=== PATIENT | male | born 1950 ===

== ENCOUNTER 2017-05-12 15:06 | Emergency (ER) | payer OTHER ==
[2017-05-12 15:24] VITALS: RESP 18; TEMP 98.9; O2SAT 99
[2017-05-12 16:30] LABS: BASO # 0.1 K/uL (0.0-0.2); BASO % 1.1 % (0.0-2.0); EOS # 0.2 K/uL (0.0-0.7); EOS % 2.3 % (0.0-4.0); HEMATOCRIT 36.7 % (35.0-51.0); LYMPH # 1.4 K/uL (1.0-4.3); LYMPH % 14.8 % (20.0-40.0); MEAN CORPUSCULAR HEMOGLOBIN 30.9 pg (27.0-31.0); MEAN CORPUSCULAR HGB CONC 33.9 g/dL (33.0-37.0); MEAN PLATELET VOLUME 8.3 fl (7.2-11.7); MONO % 10.4 % (0.0-10.0); NEUT % 71.4 % (50.0-75.0); NRBC % 0.1 % (0.0-0.0); RED CELL DISTRIBUTION WIDTH 13.9 % (11.5-14.5); WHITE BLOOD COUNT 9.8 K/uL (4.8-10.8)
[2017-05-12 16:34] LABS: PARTIAL THROMBOPLASTIN TIME 29.2 Seconds (25.6-37.1)
[2017-05-12 16:36] LABS: ALB/GLOB RATIO 1.2 (1.0-2.1); BILIRUBIN,TOTAL 0.5 mg/dl (0.2-1.3); CALCIUM 9.9 mg/dL (8.4-10.2); POTASSIUM 4.4 MMOL/L (3.6-5.0); TOTAL PROTEIN 7.5 G/DL (6.3-8.2)
[2017-05-12] MEDS ORDERED: Lidocaine 2% Inj (20ml) ONE (17:27)
[2017-05-12] MEDS ORDERED: Povidone Iodine Topical 10% Sol ONE (17:28)
--- NOTE | 2017-05-12 18:13 | ED PDOC ---
Lower Extremity Pain/Injury Time Seen by Provider: 05/12/17 15:31 Chief Complaint (Nursing): Lower Extremity Problem/Injury Chief Complaint (Provider): leg pain History Per: Patient History/Exam Limitations: no limitations Additional Complaint(s): 66yo M in ED for eval of right leg pain starting from lower back radiating to groin area and knee-pt states pain is predominately around knee area with swelling. PT took ocxycotin and naproxen but not effective. no SOB, CP, dizziness palpitations, vision changes., swelling to LE or skin changes( abnormal for pre-existing skin changes). PMHx: DM, HTN. hx of DVT 2-3 years ago. - Risk Factors DVT Risk Factors: Pos: None Neg: History Of PE Past Medical History Reviewed: Historical Data, Nursing Documentation, Vital Signs Vital Signs: Last Vital Signs Temp 98.9 F 05/12/17 15:20 Pulse 95 H 05/12/17 15:20 Resp 18 05/12/17 15:20 BP 192/110 H 05/12/17 16:38 Pulse Ox 99 05/12/17 15:20 - Medical History PMH: Diabetes, HTN, Hypercholesterolemia, Hypothyroidism, Chronic Kidney Disease - Family History Family History: States: Unknown Family Hx - Immunization History Hx Tetanus Toxoid Vaccination: No Hx Influenza Vaccination: No Hx Pneumococcal Vaccination: No - Home Medications Home Medications: Ambulatory Orders Medication Instructions Recorded Omeprazole 20 mg PO ONCE 03/21/16 Alogliptin Candelario/Pioglitazone 1 each PO DAILY 06/04/16 [Alogliptin-Pioglit 12.5-15 mg] Carvedilol [Coreg] 12.5 mg PO BID #60 tab 06/04/16 Lantus 100 unit SC BID 06/04/16 Losartan/Hydrochlorothiazide 1 each PO DAILY 06/22/16 [Losartan-Hctz 100-25 mg Tab] amLODIPine [Norvasc] 2.5 mg PO BID #20 tab 06/22/16 Cyclobenzaprine [Cyclobenzaprine 10 mg PO BID #14 tab 05/12/17 HCl] - Allergies Allergies/Adverse Reactions: Allergies Allergy/AdvReac Type Severity Reaction Status Date / Time No Known Allergies Allergy Verified 06/22/16 10:35 Wells Criteria for PE - Wells Criteria for Pulmonary Embolism Clinical Signs and Symptoms of DVT: No P.E is #1 Diagnosis, or Equally Likely: No Heart Rate >100: No Immobilization at least 3 days;Surgery previous 4 weeks: No Previous, objectively diagnosed PE or DVT: Yes Hemoptysis: No Malignancy w/treatment within 6 months, or palliative: No Total Score: 1.5 Review of Systems ROS Statement: Except As Marked, All Systems Reviewed And Found Negative Musculoskeletal: Positive for: Leg Pain Physical Exam - Reviewed Nursing Documentation Reviewed: Yes Vital Signs Reviewed: Yes - Physical Exam Appears: Positive for: Well, Non-toxic, No Acute Distress Skin: Positive for: Normal Color, Warm, DRY Cardiovascular/Chest: Positive for: Regular Rate, Rhythm Respiratory: Positive for: CNT, Normal Breath Sounds Gastrointestinal/Abdominal: Positive for: Normal Exam, Bowel Sounds, Soft. Negative for: Tenderness Back: Positive for: Normal Inspection, Vertebral Tenderness, Muscle Spasm. Negative for: L CVA Tenderness, R CVA Tenderness Extremity: Positive for: Other (skin changes noted b/l ). Negative for: Calf Tenderness, Deformity, Swelling Neurologic/Psych: Positive for: Alert, Oriented - Laboratory Results Result Diagrams: 05/12/17 16:15 05/12/17 16:15 - ECG O2 Sat by Pulse Oximetry: 99 - Progress ED Course And Treament: Orders Category Date Time Status COMP METABOLIC PANEL Stat Chem 05/12/17 16:15 Completed CBC (WITH DIFFERENTIAL) Stat STACIE 05/12/17 16:15 Completed PARTIAL THROMBOPLASTIN TIME [COAG] Stat STACIE 05/12/17 16:15 Completed PROTHROMBIN TIME [COAG] Stat STACIE 05/12/17 16:15 Completed Cyclobenzaprine [Flexeril] Med 05/12/17 18:08 Stat 10 mg PO STAT STA Ketorolac [Toradol] Med 05/12/17 18:07 Stat 30 mg IM STAT STA Lidocaine 2% 20ML VIAL Med 05/12/17 17:27 Discontinued 20 ml .ROUTE .STK-MED ONE Povidone Iodine 10% [Betadine 10% Topical Soln] Med 05/12/17 17:28 Discontinued 240 ml .ROUTE .STK-MED ONE DUPLEX LOWER EXTRM VEIN BILAT [US] Stat US 05/12/17 15:51 Taken PT will get US r/o DVT- which negative for DVT-will get torodol and flexril for pain PT with elevated BP Re-evaluation Time: 19:10 Condition: Improved (pain improved with use of torodol and flexril. however BP is elevated-states [facility] today for BP. no dizziness, no GARRISON no vision changes no chest pain. pt given clondine ) Medical Decision Making Medical Decision Making: PT VS improved. pt stable for d/c home with f.u with pmd d/c on flexril to add to naproxen. advised to NOT use to oxycotin. pt understands and agrees with plan. Disposition - Clinical Impression Clinical Impression: Sciatica - Patient ED Disposition Is Patient to be Admitted: No Counseled Patient/Family Regarding: Studies Performed, Diagnosis, Need For Followup, Rx Given - Disposition Disposition: Routine/Home Disposition Time: 19:31 Condition: IMPROVED Additional Instructions: Do not take the flexril with ocycotin. Prescriptions: Cyclobenzaprine [Cyclobenzaprine HCl] 10 mg PO BID #14 tab Instructions: Sciatica (ED) Forms: [employer] (Finnish)
--- NOTE | 2017-05-12 18:36 | US ---
PROCEDURE: Bilateral lower extremity venous duplex Doppler. HISTORY: b/l calf/groin pain COMPARISON: None available. TECHNIQUE: Bilateral common femoral, superficial femoral, popliteal and posterior tibial veins were evaluated. Flow was assessed with color Doppler, compressibility, assessment of phasic flow and augmentation response. FINDINGS: COMMON FEMORAL VEIN: Right CFV: Unremarkable. Left CFV: Unremarkable. SUPERFICIAL FEMORAL VEIN: Right SFV: Unremarkable. Left SFV: Unremarkable. POPLITEAL VEIN: Right Popliteal: Unremarkable. Left Popliteal: Unremarkable. POSTERIOR TIBIAL VEIN: Right PTV: Unremarkable. Left PTV: Unremarkable. OTHER FINDINGS: None. IMPRESSION: No evidence of deep venous thrombosis.
[2017-05-12] MEDS ORDERED: Sodium Chloride 0.9% 1,000 ML IV STA (18:37)
[2017-05-12 19:30] VITALS: PULSE 90
[2017-05-12 19:54] VITALS: BP 169/89
== END 2017-05-12 19:55 | disposition home or self-care (01) ==
LOC: H.ER 15:06
DX: M54.42 Lumbago with sciatica, left side (principal); E11.22 Type 2 diabetes mellitus with diabetic chronic kidney disease; E78.00 Pure hypercholesterolemia, unspecified; I12.9 Hypertensive chronic kidney disease with stage 1 through stage 4 chronic kidney disease, or unspecified chronic kidney disease; Z79.4 Long term (current) use of insulin; Z86.711 Personal history of pulmonary embolism
CPT/HCPCS: 80053; 85025; 85610; 85730; 93970; 96372; 99284; J1885

== ENCOUNTER 2017-05-19 05:59 | Emergency (ER) | payer OTHER ==
[2017-05-19 06:14] VITALS: BMI 34.4
[2017-05-19 06:18] VITALS: BP 184/85; PULSE 106; RESP 18; TEMP 98.7; O2SAT 100
[2017-05-19] MEDS ORDERED: Oxycodone/Acetaminophen 5/325 mg Tab PO ONE (06:40)
[2017-05-19] MEDS ORDERED: Oxycodone/Acetaminophen 5/325 mg Tab ONE (06:43)
--- NOTE | 2017-05-19 06:46 | ED PDOC ---
Lower Extremity Pain/Injury Time Seen by Provider: 05/19/17 06:03 Chief Complaint (Nursing): Lower Extremity Problem/Injury Chief Complaint (Provider): Right Leg Pain History Per: Patient History/Exam Limitations: no limitations Onset/Duration Of Symptoms: Days (x6) Current Symptoms Are (Timing): Still Present Additional Complaint(s): Maximo Crain is a 66 year old male with a history of hypertension, diabetes, high cholesterol, hypothyroidism, and chronic kidney disease that presents to the ED with a chief complaint of right knee pain localized to the medial aspect that he has been experiencing for the past five days. Patient was seen in the ED on 05/12/17 for bilateral knee pain, for which he received an ultrasound that showed no clot. He was given prescriptions for Oxycontin and Naproxen but with no improvement. Of Note: Patient has history of DVT that occurred 2-3 years ago. Past Medical History Reviewed: Historical Data, Nursing Documentation, Vital Signs Vital Signs: Last Vital Signs Temp 98.7 F 05/19/17 06:14 Pulse 106 H 05/19/17 06:14 Resp 18 05/19/17 06:14 BP 184/85 H 05/19/17 06:14 Pulse Ox 100 05/19/17 06:14 - Medical History PMH: Diabetes, HTN, Hypercholesterolemia, Hypothyroidism, Chronic Kidney Disease - Family History Family History: States: Unknown Family Hx - Social History Current smoker - smoking cessation education provided: No Alcohol: None Drugs: Denies - Immunization History Hx Tetanus Toxoid Vaccination: No Hx Influenza Vaccination: No Hx Pneumococcal Vaccination: No - Home Medications Home Medications: Ambulatory Orders Medication Instructions Recorded Omeprazole 20 mg PO ONCE 03/21/16 Alogliptin Candelario/Pioglitazone 1 each PO DAILY 06/04/16 [Alogliptin-Pioglit 12.5-15 mg] Carvedilol [Coreg] 12.5 mg PO BID #60 tab 06/04/16 Lantus 100 unit SC BID 06/04/16 Losartan/Hydrochlorothiazide 1 each PO DAILY 06/22/16 [Losartan-Hctz 100-25 mg Tab] amLODIPine [Norvasc] 2.5 mg PO BID #20 tab 06/22/16 Cyclobenzaprine [Cyclobenzaprine 10 mg PO BID #14 tab 05/12/17 HCl] Celecoxib [celeBREX] 200 mg PO DAILY PRN #20 cap 05/19/17 - Allergies Allergies/Adverse Reactions: Allergies Allergy/AdvReac Type Severity Reaction Status Date / Time No Known Allergies Allergy Verified 05/19/17 06:14 Review of Systems Musculoskeletal: Positive for: Leg Pain (right knee pain) Physical Exam - Reviewed Nursing Documentation Reviewed: Yes Vital Signs Reviewed: Yes - Physical Exam Appears: Positive for: Non-toxic, No Acute Distress Head Exam: Positive for: ATRAUMATIC, NORMOCEPHALIC Skin: Positive for: Normal Color, Warm, DRY Eye Exam: Positive for: EOMI, Normal appearance, PERRL Cardiovascular/Chest: Positive for: Regular Rate, Rhythm. Negative for: Murmur Respiratory: Positive for: Normal Breath Sounds. Negative for: Wheezing Gastrointestinal/Abdominal: Positive for: Normal Exam, Soft. Negative for: Tenderness Extremity: Negative for: Tenderness, Deformity, Swelling Neurologic/Psych: Positive for: Alert, Oriented. Negative for: Motor/Sensory Deficits - ECG O2 Sat by Pulse Oximetry: 100 (RA) Pulse Ox Interpretation: Normal Medical Decision Making Medical Decision Making: Impression: Right Knee Pain Plan: * X-Ray Right Knee, Rule out fracture * US Duplex Lower Extremity Right Vein, Rule out DVT * Percocet 5/325 mg PO * Reevaluation Scribe Attestation: Documented by Aliza Horner, acting as a scribe for Jesus Mendoza MD. Provider Scribe Attestation: All medical record entries made by the Scribe were at my direction and personally dictated by me. I have reviewed the chart and agree that the record accurately reflects my personal performance of the history, physical exam, medical decision making, and the department course for this patient. I have also personally directed, reviewed, and agree with the discharge instructions and disposition. Disposition - Clinical Impression Clinical Impression: Knee pain, chronic - Patient ED Disposition Is Patient to be Admitted: Transfer of Care - Disposition Referrals: Shaik Oliveira MD [Family Provider] - Mackenzie Oliveira MD [Non-Staff] - Disposition: Transfer of Care Disposition Time: 07:30 Condition: IMPROVED Prescriptions: Celecoxib [celeBREX] 200 mg PO DAILY PRN #20 cap PRN Reason: Pain Instructions: Knee Pain (ED) Forms: [employer] (Indonesian) Patient Signed Over To: Sunita Davila
--- NOTE | 2017-05-19 08:29 | ED PDOC ---
- ECG O2 Sat by Pulse Oximetry: 100 (RA) Pulse Ox Interpretation: Normal Medical Decision Making Medical Decision Making: Time: 07:00 --Patient is signed out to me by Dr. Jesus Mendoza MD, pending X-Ray, ultrasound, and reevaluation Scribe Attestation: Documented by Marley Kirk, acting as a scribe for Sunita Davila MD Provider Scribe Attestation: All medical record entries made by the Scribe were at my direction and personally dictated by me. I have reviewed the chart and agree that the record accurately reflects my personal performance of the history, physical exam, medical decision making, and the department course for this patient. I have also personally directed, reviewed, and agree with the discharge instructions and disposition. 9.15a- feeling bettter. x-rays no fracture or dislocation. evidence of DJD. Doppler negative for DVT. Will discharge. Disposition Doctor Will See Patient In The: Office Counseled Patient/Family Regarding: Diagnosis, Need For Followup, Rx Given - Clinical Impression Clinical Impression: Knee pain, chronic - POA Present On Arrival: None - Disposition Referrals: Shaik Oliveira MD [Family Provider] - Mackenzie Oliveira MD [Non-Staff] - Disposition: Routine/Home Disposition Time: 09:15 Condition: IMPROVED Prescriptions: Celecoxib [celeBREX] 200 mg PO DAILY PRN #20 cap PRN Reason: Pain Instructions: Knee Pain (ED) Forms: [employer] (Ukrainian)
--- NOTE | 2017-05-19 09:46 | US ---
PROCEDURE: Right lower extremity venous duplex Doppler. HISTORY: Right lower leg pain COMPARISON: None available. TECHNIQUE: Common femoral, superficial femoral, popliteal and posterior tibial veins were evaluated. Flow was assessed with color Doppler, compressibility, assessment of phasic flow and augmentation response. FINDINGS: COMMON FEMORAL VEIN: Normal direction of flow, compressibility and augmentation response. SUPERFICIAL FEMORAL VEIN: Normal direction of flow, compressibility and augmentation response. POPLITEAL VEIN: Normal direction of flow, compressibility and augmentation response. POSTERIOR TIBIAL VEIN: Normal direction of flow, compressibility and augmentation response. OTHER FINDINGS: None. IMPRESSION: No evidence of deep venous thrombosis in the right lower extremity.
--- NOTE | 2017-05-19 11:09 | RAD ---
PROCEDURE: Right Knee Radiographs. HISTORY: knee pain COMPARISON: None. FINDINGS: BONES: Bone alignment and mineralization are normal. No fracture. JOINTS: There is moderate tricompartmental degenerative osteoarthrosis with mild reduced joint spaces, marginal osteophytes and chondrocalcinosis, worse in the medial compartment. JOINT EFFUSION: None. OTHER FINDINGS: There are extensive small presumable dermal calcifications in the upper leg and probable linear heterotopic ossification in the anterior soft tissues. IMPRESSION: Moderate tricompartmental degenerative osteoarthrosis, worse in the medial compartment. .
== END 2017-05-19 10:13 | disposition home or self-care (01) ==
LOC: H.ER 05:59
DX: M17.11 Unilateral primary osteoarthritis, right knee (principal); E11.22 Type 2 diabetes mellitus with diabetic chronic kidney disease; E78.00 Pure hypercholesterolemia, unspecified; I12.9 Hypertensive chronic kidney disease with stage 1 through stage 4 chronic kidney disease, or unspecified chronic kidney disease; Z79.4 Long term (current) use of insulin

== ENCOUNTER 2017-11-09 22:49 | Inpatient (IN) | payer MEDICAID, OTHER ==
[2017-11-09 22:49] VITALS: BMI 34.4
--- NOTE | 2017-11-10 00:12 | US ---
EXAM: US Duplex Bilateral Lower Extremity Veins CLINICAL HISTORY: 66 years old, male; Pain; Leg, lower; Bilateral; Additional info: Leg pains h/o dvt TECHNIQUE: Real-time duplex ultrasound scan of the bilateral lower extremity veins integrating B-mode two-dimensional vascular structure, Doppler spectral analysis, color flow Doppler imaging and compression. COMPARISON: No relevant prior studies available. FINDINGS: Right deep veins: No acute abnormality as visualized. No DVT in the right common femoral, femoral, proximal deep femoral, popliteal or posterior tibial veins. The veins demonstrate normal color flow, are normally compressible, with normal phasic flow and/or augmentation response. Left deep veins: No acute abnormality as visualized. No DVT in the left common femoral, femoral, proximal deep femoral, popliteal or posterior tibial veins veins. The veins demonstrate normal color flow, are normally compressible, with normal phasic flow and/or augmentation response. Soft tissues: No acute findings. IMPRESSION: No evidence of deep venous thrombosis in the visualized veins of the bilateral lower extremities.
--- NOTE | 2017-11-10 00:15 | ED PDOC ---
Lower Extremity Pain/Injury Time Seen by Provider: 11/09/17 23:04 Chief Complaint (Nursing): Lower Extremity Problem/Injury Chief Complaint (Provider): Lower Extremity Problem History Per: Patient History/Exam Limitations: no limitations Onset/Duration Of Symptoms: Days (11/10/17), Worse Since Current Symptoms Are (Timing): Still Present Additional Complaint(s): 66 year old male with a past medical history of diabetes and hypertension presents to the ED complaining of leg pain onset today. Patient has had this problem since 2 years due to herniated disk in back. Reports the pain has been worse for the past 2 days. Hes bed-bound and doesnt walk since March of last year due to progressive weakness in legs. Denies new trauma, back pain, new numbness or new weakness, or urinary problems. PMD: Shaik Oliveira Past Medical History Reviewed: Historical Data, Nursing Documentation, Vital Signs Vital Signs: Last Vital Signs Temp 99.1 F 11/09/17 22:50 Pulse 137 H 11/09/17 22:50 Resp 18 11/09/17 22:50 BP 142/77 11/09/17 22:50 Pulse Ox 97 11/09/17 22:50 - Medical History PMH: Arthritis (back pain, r knee pain), Diabetes, HTN, Hypercholesterolemia, Hypothyroidism, Chronic Kidney Disease - Family History Family History: States: Unknown Family Hx - Social History Current smoker - smoking cessation education provided: No Alcohol: None Drugs: Denies - Immunization History Hx Tetanus Toxoid Vaccination: No Hx Influenza Vaccination: Yes Hx Pneumococcal Vaccination: Yes - Home Medications Home Medications: Ambulatory Orders Medication Instructions Recorded Apixaban [Eliquis] 5 mg PO DAILY 11/10/17 Insulin Glargine, Recombina 20 unit SQ BID 11/10/17 [Lantus] Levothyroxine Sodium [Synthroid] 175 mcg PO DAILY 11/10/17 Omeprazole 20 mg PO DAILY 11/10/17 Rosuvastatin Calcium [Crestor] 10 mg PO HS 11/10/17 Sitagliptin Phos/Metformin HCl 1 each PO BID 11/10/17 [Janumet 50-1,000 mg Tablet] Torsemide [Demadex] 20 mg PO DAILY 11/10/17 Valsartan/Hydrochlorothiazide 1 tab PO DAILY 11/10/17 [Valsartan and Hydrochlorothiazide 25 mg-160 M] amLODIPine [Norvasc] 5 mg PO DAILY 11/10/17 - Allergies Allergies/Adverse Reactions: Allergies Allergy/AdvReac Type Severity Reaction Status Date / Time No Known Allergies Allergy Verified 06/06/17 21:01 Review of Systems ROS Statement: Except As Marked, All Systems Reviewed And Found Negative (As per HPI, otherwise negative) Constitutional: Negative for: Weakness, Other (trauma) Musculoskeletal: Positive for: Leg Pain Neurological: Negative for: Weakness Physical Exam - Reviewed Nursing Documentation Reviewed: Yes Vital Signs Reviewed: Yes - Physical Exam Appears: Positive for: Non-toxic, No Acute Distress Head Exam: Positive for: ATRAUMATIC, NORMAL INSPECTION, NORMOCEPHALIC Skin: Positive for: Normal Color, Warm, Dry ENT: Negative for: Pharyngeal Erythema, Tonsillar Exudate Neck: Positive for: Painless ROM, Supple Cardiovascular/Chest: Positive for: Regular Rate, Rhythm. Negative for: Murmur Respiratory: Positive for: Normal Breath Sounds. Negative for: Respiratory Distress Gastrointestinal/Abdominal: Positive for: Soft. Negative for: Tenderness, Mass , Distended, Guarding Back: Negative for: Vertebral Tenderness, Muscle Spasm Extremity: Positive for: Pedal Edema (bilateral and reported to be better than usual), Other (poor muscle bulk). Negative for: Tenderness (bilateral legs) Neurologic/Psych: Positive for: Alert, Oriented (x3), Motor/Sensory Deficits (4/ 5 strength) - Laboratory Results Result Diagrams: 11/13/17 05:30 11/13/17 05:30 - ECG O2 Sat by Pulse Oximetry: 97 (RA) Pulse Ox Interpretation: Normal Medical Decision Making Medical Decision Making: Time: 2309 Initial Impression: acute chronic leg pain Initial Plan: --Venous Blood Gas Shock Panel --CMP --Magnesium --Phosphorous --CBC w/ differential --Partial Thromboplastin Time [COAG] --Prothrombin Time [COAG] --Flexeril 10mg --Neurontin 300mg --Toradol 15mg --Tylenol 975mg --Duplex Lower Extrm Vein Bilat [US] --Reevaluation Time: 0000 Patient will be signed out to Dr. Bruno pending labs and reevaluation. Scribe Attestation: Documented by Gilberto Luke, acting as a scribe for Ирина Shea MD Provider Scribe Attestation: All medical record entries made by the Scribe were at my direction and personally dictated by me. I have reviewed the chart and agree that the record accurately reflects my personal performance of the history, physical exam, medical decision making, and the department course for this patient. I have also personally directed, reviewed, and agree with the discharge instructions and disposition. Disposition - Clinical Impression Clinical Impression: Acute on chronic renal failure, Hyperkalemia, Lactic acidosis - Disposition Disposition: Transfer of Care Disposition Time: 00:00 Condition: FAIR Patient Signed Over To: London Bruno Handoff Comments: Pending labs and reevaluation
--- NOTE | 2017-11-10 00:27 | ED PDOC ---
- Laboratory Results Result Diagrams: 11/10/17 00:35 11/10/17 00:35 - ECG O2 Sat by Pulse Oximetry: 97 (RA) Pulse Ox Interpretation: Normal Medical Decision Making Medical Decision Making: Time: Patient signed out to me by Dr. Shea pending labs and reevaluation. Time:10 EXAM:US Duplex Bilateral Lower Extremity Veins FINDINGS: Right deep veins: No acute abnormality as visualized. No DVT in the right common femoral, femoral, proximal deep femoral, popliteal or posterior tibial veins. The veins demonstrate normal color flow, are normally compressible, with normal phasic flow and/or augmentation response. Left deep veins: No acute abnormality as visualized. No DVT in the left common femoral, femoral, proximal deep femoral, popliteal or posterior tibial veins veins. The veins demonstrate normal color flow, are normally compressible, with normal phasic flow and/or augmentation response. Soft tissues: No acute findings. IMPRESSION: No evidence of deep venous thrombosis in the visualized veins of the bilateral lower extremities. 200 HR 98, legs appear with chronic discoloration, no swelling/erythema/crepitus noted, patient states both legs are hurting currently. EKG shows peaked T waves , patient has hyperkalemia and worsening renal faiulre. Will admit for IVF and inpatient management. Lactic acidosis as well, although no focus for infection/ gangrene/gas seen at this time Scribe Attestation: Documented by Gilberto Luke, acting as a scribe for London Bruno MD Provider Scribe Attestation: All medical record entries made by the Scribe were at my direction and personally dictated by me. I have reviewed the chart and agree that the record accurately reflects my personal performance of the history, physical exam, medical decision making, and the department course for this patient. I have also personally directed, reviewed, and agree with the discharge instructions and disposition. Disposition - Clinical Impression Clinical Impression: Acute on chronic renal failure, Hyperkalemia, Lactic acidosis - POA Present On Arrival: None - Disposition Disposition: Admitted as In-Patient Disposition Time: 02:13 Condition: FAIR
[2017-11-10 00:42] LABS: VENOUS BLOOD GAS BASE EXCESS 13.3 mmol/L (0.0-2.0); VENOUS BLOOD GAS PCO2 40 mmHg (40-60); VENOUS BLOOD GAS PO2 16 mm/Hg (30-55); VENOUS BLOOD PH 7.57 (7.32-7.43)
[2017-11-10] MEDS ORDERED: Sodium Chloride 0.9% 1,000 ML IV STA (00:48)
[2017-11-10 00:51] LABS: BASO # 0.1 K/uL (0.0-0.2); BASO % 0.8 % (0.0-2.0); EOS # 0.2 K/uL (0.0-0.7); EOS % 2.1 % (0.0-4.0); HEMOGLOBIN 11.9 g/dL (12.0-18.0); LYMPH # 1.7 K/uL (1.0-4.3); LYMPH % 15.5 % (20.0-40.0); MEAN CELL VOLUME 89.2 fl (80.0-94.0); MEAN CORPUSCULAR HEMOGLOBIN 29.3 pg (27.0-31.0); MEAN CORPUSCULAR HGB CONC 32.9 g/dL (33.0-37.0); MEAN PLATELET VOLUME 8.3 fl (7.2-11.7); MONO # 1.1 K/uL (0.0-0.8); MONO % 10.5 % (0.0-10.0); NEUT # 7.6 K/uL (1.8-7.0); NEUT % 71.1 % (50.0-75.0); NRBC % 0.1 % (0.0-0.0); RBC 4.05 Mil/uL (4.40-5.90); RED CELL DISTRIBUTION WIDTH 15.2 % (11.5-14.5); WHITE BLOOD COUNT 10.7 K/uL (4.8-10.8)
[2017-11-10 01:03] LABS: ALB/GLOB RATIO 1.2 (1.0-2.1); ALBUMIN 4.7 g/dL (3.5-5.0); CALCIUM 11.4 mg/dL (8.4-10.2)
[2017-11-10 01:06] LABS: INR 1.1 (0.9-1.2); PARTIAL THROMBOPLASTIN TIME 29.4 Seconds (25.6-37.1); PROTHROMBIN TIME 11.8 Seconds (9.8-13.1)
[2017-11-10] MEDS ORDERED: Dextrose 50% SYRINGE Inj (50 ml) IVP ONE (01:38)
[2017-11-10] MEDS ORDERED: Insulin Regular 100 units/ml IV STA (01:38)
[2017-11-10] MEDS ORDERED: Sod Polystyrene Sulf 15 gm/60 ml Susp PO ONE (01:38)
[2017-11-10] MEDS ORDERED: Insulin Regular 100 units/ml ONE (02:04)
[2017-11-10] MEDS ORDERED: Dextrose 50% SYRINGE Inj (50 ml) ONE (02:04)
--- NOTE | 2017-11-10 02:59 | CP.PCM.HP ---
History of Present Illness - History of Present Illness History of Present Illness: PCP: Tee Ballard MD Chief Complaint: lower back and Left lower extremity pain/Dysuria The Patient was seen and examined in the ED HPI: The patient is a poor historian because of the severe pain. The Hx is obtained from his and after review of the medical records. he is a 66 years old male with hx of DM II, CKD, DVT and 2 years of Chronic back pain with Sciatica, only ambulating with a wheel chair and assistance. He comes because of worsening of the left lower extremity pain, originating from the left groin and down the thighs to below the knee. He refers severe dysuria on trying to urinate. Bladder scan in the ED showed no urine in bladder. PMH: Arthritis (back pain, r knee pain), Herneated disc, Spinal stenosis; DVT; , DM 11, HTN, HLD, Hypothyroidism, CKD; BPH; prostate cancer PSH: Umbilical hernia repair SH: Alcohol in the past; No cigarette use; No illegal drug use; live with ; Allergies: NKDA Medication: Reviewed Present on Admission - Present on Admission Any Indicators Present on Admission: Yes History of DVT/PE: No History of Uncontrolled Diabetes: Yes Urinary Catheter: No Decubitus Ulcer Present: No Review of Systems - Constitutional Constitutional: absent: Anorexia, Chills, Fever, Headache - EENT Eyes: Requires Corrective Lenses. absent: Diplopia, Floaters, Loss of Peripheral Vision Ears: absent: Decreased Hearing, Ear Discharge, Ear Pain, Tinnitus Nose/Mouth/Throat: absent: Epistaxis, Nasal Congestion, Nasal Obstruction, Lip Swelling, Mouth Lesions - Cardiovascular Cardiovascular: absent: Chest Pain, Dyspnea, Edema - Respiratory Respiratory: absent: Cough, Dyspnea, Wheezing, Stridor - Gastrointestinal Gastrointestinal: absent: Abdominal Pain, Constipation, Diarrhea, Nausea - Genitourinary Genitourinary: Dysuria, Flank Pain. absent: Urinary Frequency - Musculoskeletal Musculoskeletal: Arthralgias, Back Pain Additional comments: Lower back pain, Left lower extremity pain - Integumentary Integumentary: absent: Pruritus, Rash, Skin Ulcer, Sores, Striae, Swelling - Neurological Neurological: absent: Confusion, Focal Weakness, Weakness - Psychiatric Psychiatric: absent: Anxiety, Depression, Panic Attacks - Endocrine Endocrine: absent: Palpitations, Polydipsia, Polyphagia, Polyuria - Hematologic/Lymphatic Hematologic: absent: Easy Bleeding, Easy Bruising Past Patient History - Infectious Disease Hx of Infectious Diseases: None - Past Medical History & Family History Past Medical History?: Yes - Past Social History Smoking Status: Never Smoked Chewing Tobacco Use: No Cigar Use: No Alcohol: None Drugs: Denies - CARDIAC Hx Hypercholesterolemia: Yes Hx Hypertension: Yes - PULMONARY Hx Respiratory Disorders: No - NEUROLOGICAL Hx Neurological Disorder: No - HEENT Hx HEENT Problems: No - RENAL Hx Chronic Kidney Disease: Yes - ENDOCRINE/METABOLIC Hx Hypothyroidism: Yes - HEMATOLOGICAL/ONCOLOGICAL Hx Blood Disorders: Yes Hx Cancer: Yes (prostatic 7 yrs ago) - INTEGUMENTARY Hx Dermatological Problems: No - MUSCULOSKELETAL/RHEUMATOLOGICAL Hx Arthritis: Yes (back pain, r knee pain) - GASTROINTESTINAL Hx Gastrointestinal Disorders: No - GENITOURINARY/GYNECOLOGICAL Hx Genitourinary Disorders: Yes Hx Prostate Cancer: Yes (7 years ago) - PSYCHIATRIC Hx Substance Use: No - SURGICAL HISTORY Hx Surgeries: No Hx Herniorrhaphy: Yes (Umbilical) - ANESTHESIA Hx Anesthesia: Yes Hx Anesthesia Reactions: No Meds Allergies/Adverse Reactions: Allergies Allergy/AdvReac Type Severity Reaction Status Date / Time No Known Allergies Allergy Verified 06/06/17 21:01 Physical Exam - Constitutional Appears: In Acute Distress - Head Exam Head Exam: ATRAUMATIC, NORMAL INSPECTION, NORMOCEPHALIC - Eye Exam Eye Exam: EOMI, Normal appearance Pupil Exam: NORMAL ACCOMODATION, PERRL - ENT Exam ENT Exam: Mucous Membranes Moist, Normal Exam, Normal External Ear Exam - Neck Exam Neck exam: Positive for: Full Rom, Normal Inspection. Negative for: Lymphadenopathy, Tenderness - Respiratory Exam Respiratory Exam: Clear to Auscultation Bilateral. absent: Rales, Rhonchi, Wheezes - Cardiovascular Exam Cardiovascular Exam: REGULAR RHYTHM, RRR, +S1, +S2 - GI/Abdominal Exam Additional comments: Distended, firm, +ve bowel sound, non tender - Rectal Exam Rectal Exam: Deferred - Extremities Exam Extremities exam: Negative for: calf tenderness, normal inspection, pedal edema - Back Exam Back exam: CVA tenderness (L), NORMAL INSPECTION - Neurological Exam Neurological exam: Alert, Oriented x3, Reflexes Normal Additional comments: Back pain radiating down the left lower extremity to the kmee - Psychiatric Exam Psychiatric exam: Normal Affect, Normal Mood - Skin Skin Exam: Dry, Intact, Normal Color, Warm Results - Vital Signs Recent Vital Signs: Last Vital Signs Temp 99.1 F 11/09/17 22:50 Pulse 98 H 11/10/17 02:19 Resp 21 11/10/17 02:19 BP 142/77 11/09/17 22:50 Pulse Ox 100 11/10/17 02:19 - Labs Result Diagrams: 11/10/17 00:35 11/10/17 00:35 Labs: Laboratory Results - last 24 hr 11/10/17 11/10/17 11/10/17 00:35 00:35 00:35 WBC 10.7 RBC 4.05 L Hgb 11.9 L Hct 36.1 MCV 89.2 MCH 29.3 MCHC 32.9 L RDW 15.2 H Plt Count 264 MPV 8.3 Neut % (Auto) 71.1 Lymph % (Auto) 15.5 L [place] % (Auto) 10.5 H Eos % (Auto) 2.1 Baso % (Auto) 0.8 Neut # (Auto) 7.6 H Lymph # (Auto) 1.7 [place] # (Auto) 1.1 H Eos # (Auto) 0.2 Baso # (Auto) 0.1 PT 11.8 INR 1.1 APTT 29.4 pO2 VBG pH VBG pCO2 VBG HCO3 VBG Total CO2 VBG O2 Sat (Calc) VBG Base Excess VBG Potassium Glucose Lactate FiO2 Sodium 143 Potassium 5.3 H Chloride 92 L Carbon Dioxide 30 Anion Gap 26 H BUN 101 H* D Creatinine 3.8 H Est GFR ( Amer) 19 Est GFR (Non-Af Amer) 16 Random Glucose 201 H Calcium 11.4 H Phosphorus 2.5 Magnesium 2.9 H Total Bilirubin 0.7 AST 37 ALT 32 Alkaline Phosphatase 122 Total Protein 8.7 H Albumin 4.7 Globulin 4.0 H Albumin/Globulin Ratio 1.2 Venous Blood Potassium 11/10/17 00:39 WBC RBC Hgb Hct MCV MCH MCHC RDW Plt Count MPV Neut % (Auto) Lymph % (Auto) [place] % (Auto) Eos % (Auto) Baso % (Auto) Neut # (Auto) Lymph # (Auto) [place] # (Auto) Eos # (Auto) Baso # (Auto) PT INR APTT pO2 16 L VBG pH 7.57 H VBG pCO2 40 VBG HCO3 33.5 VBG Total CO2 37.8 H VBG O2 Sat (Calc) 31.3 L VBG Base Excess 13.3 H VBG Potassium 5.0 Glucose 222 H Lactate 3.6 H FiO2 21.0 Sodium 137.0 Potassium Chloride 98.0 Carbon Dioxide Anion Gap BUN Creatinine Est GFR ( Amer) Est GFR (Non-Af Amer) Random Glucose Calcium Phosphorus Magnesium Total Bilirubin AST ALT Alkaline Phosphatase Total Protein Albumin Globulin Albumin/Globulin Ratio Venous Blood Potassium 5.0 - Imaging and Cardiology US of left lower extremity Additional comment: No evidence of DVT Chest x-ray Status: Image reviewed by me Additional comment: Clear no infiltrate Assessment & Plan - Assessment and Plan (Free Text) Assessment: #. Acute on chronic kidney failure #. Hyperkalemia #. Dm with Hyperglycemia #. Anemia of chronic disease #. Hx of Prostate Cancer #. Chronic Back pain with Sciatica Plan: 66 years old male with hx of DM II, CKD, DVT and 2 years of Chronic back pain with Sciatica, only ambulating with a wheel chair and assistance. He comes because of worsening of the left lower extremity pain, originating from the left groin and down the thighs to below the knee. He refers severe dysuria on trying to urinate. Bladder scan in the ED showed no urine in bladder. #. Chronic Back pain with Sciatica. Patient has had complete work up in other hospitals and was told that he need surgery to the back. He has been in bed bound and in wheel chair for march 2017 - Pain management - PT/OT #. Acute on chronic kidney failure - Consult Dr Jones nephrology - IV fluids - Renal US #. Hyperkalemia - D50 and Insulin with sodium bicarbonate and calcium Gluconate given in Ed - D/C valsartan/ HCTZ and Demedex - Follow electrolytes #. Dm with Hyperglycemia - Hold Metformin - Levemir - Regular insulin sliding scale according to accucheck - HbA1c #. Anemia of chronic disease - follow Hb #. hypothyroidism - continue Synthroid - TSH #. Hx of Prostate Cancer - nor on treatment #. DVT prophylaxis; no SCD because of hx of DVT - Hold Eliquis for possible Dialysis line placement #.Code Status: Full - Date & Time Date: 11/10/17 Time: 02:59
[2017-11-10] MEDS ORDERED: Sodium Chloride 0.9% 1,000 ML IV SCH (03:30)
[2017-11-10] MEDS ORDERED: Sod Polystyrene Sulf 15 gm/60 ml Susp ONE (03:51)
[2017-11-10] MEDS ORDERED: Pneumococcal 23-Valent Vaccine IM ONE (05:05)
[2017-11-10] MEDS: Levothyroxine 175 MCG TAB PO SCH (05:51)
[2017-11-10 07:40] LABS: HEMOGLOBIN 10.1 g/dL (12.0-18.0); MEAN CELL VOLUME 89.8 fl (80.0-94.0); MEAN CORPUSCULAR HEMOGLOBIN 29.4 pg (27.0-31.0); MEAN CORPUSCULAR HGB CONC 32.7 g/dL (33.0-37.0); RBC 3.43 Mil/uL (4.40-5.90); RED CELL DISTRIBUTION WIDTH 15.1 % (11.5-14.5); WHITE BLOOD COUNT 8.3 K/uL (4.8-10.8)
[2017-11-10 07:50] LABS: CALCIUM 10.1 mg/dL (8.4-10.2)
[2017-11-10] MEDS: Pantoprazole 20 mg EC Tab PO SCH (11:07)
--- NOTE | 2017-11-10 11:07 | US ---
PROCEDURE: Ultrasound of the Kidneys HISTORY: ARF COMPARISON: None available. TECHNIQUE: Sonogram of the kidneys. FINDINGS: RIGHT KIDNEY: Measures: 11.5 cm. Normal in size, contour and echogenicity. Heterogeneously echogenic solid mass arising from or adjacent to lower pole right kidney, 3.5 x 4.9 x 4.6 cm. There is no vascular flow demonstrated within this mass on color Doppler interrogation. No other mass is identified. There is no calculus or hydronephrosis. This mass should be further evaluated with magnetic resonance imaging of the abdomen or see 0 0. Please note that with current history of acute kidney disease, intravenous contrast or intravenous gadolinium administration is not advisable at this time. LEFT KIDNEY: Measures: 11.8 cm. Normal in size, contour and echogenicity. No stone, solid mass lesion or hydronephrosis visualized. OTHER FINDINGS: None. IMPRESSION: 4.9 cm solid mass arising from or adjacent to lower pole right kidney. Possible renal malignancy. Evaluation with magnetic resonance imaging is advised. These findings were discussed by telephone with Dr. Matthews at 11 o'clock a.m. on 11/10/2017.
--- NOTE | 2017-11-10 11:18 | CARD ---
APPROVED REPORT EKG Measurement Heart [id number] <Conclusion> Normal sinus rhythm Low voltage QRS Inferior infarct, age undetermined Abnormal ECG
[2017-11-10] MEDS: Insulin Detemir 100 Units/ml Inj SC SCH ×2 (12:00→17:28)
--- NOTE | 2017-11-10 12:03 | RAD ---
HISTORY: pain, elevated lactate COMPARISON: No prior. TECHNIQUE: Chest PA and lateral FINDINGS: LUNGS: No active pulmonary disease. PLEURA: No significant pleural effusion identified. No pneumothorax apparent. CARDIOVASCULAR: Normal. OSSEOUS STRUCTURES: No significant abnormalities. VISUALIZED UPPER ABDOMEN: Normal. OTHER FINDINGS: None. IMPRESSION: No active disease.
[2017-11-10] MEDS ORDERED: Chlorhexidine Gluconate 1 APPL/PKT TP ONE (12:56)
--- NOTE | 2017-11-10 15:40 | RAD ---
PROCEDURE: Radiographs of the Lumbar Spine. HISTORY: low back pain, Hx of prostate Cancer COMPARISON: Not available FINDINGS: BONES: Severe compression deformity of L3 vertebra, age indeterminate. There is diffuse sclerosis of this compressed vertebra suggesting possible sclerotic metastasis. There is a sclerotic focus seen in the L5 vertebral body in the lateral view that may not in fact be inherent to the vertebral body but be projecting over. This is not evident in the frontal projection. The remaining vertebral bodies are maintained in height. DISC SPACES: Unremarkable. OTHER FINDINGS: None. IMPRESSION: Severe compression deformity of L3 vertebra with diffuse sclerosis suspicious for sclerotic metastasis. Questionable sclerotic focus in the L5 vertebra.
--- NOTE | 2017-11-10 15:49 | CON ---
DATE: 11/10/2017 COMPREHENSIVE UROLOGIC CONSULTATION TIME OF CONSULTATION: Roughly around 1:30 p.m. BRIEF HISTORY: The patient is a 66-year-old male from [facility],status post I-125 prostate seed implantation and IMRT done in [place], [place] with Dr. Royce Phillips more than 10 years ago for treatment of prostate cancer. The patient currently voids with his usual normal urinary stream. He also has a history of chronic kidney disease for more than 15 years. The patient is currently admitted for workup of left lower quadrant pain and abdominopelvic CT and renal ultrasound done on 11/10/2017 today showed a heterogeneous echogenic solid mass arising from or adjacent to the lower pole of the right kidney measuring 3.5 x cm. There is no vascular flow demonstrated within the mass on color Doppler. No other mass is identified. There is no calculus or hydronephrosis, and the mass should be further evaluated with MRI. The patient currently has a Amos catheter to see if this will will improve his renal insufficiency; however, the patient states he was voiding with his usual normal stream at home. He has no dysuria, gross hematuria, renal colic or abdominal pain. He was admitted for a complaint of left lower extremity pain. PAST MEDICAL HISTORY: The patient has diabetes mellitus type 2, chronic kidney disease, DVT, and 2 years of chronic back pain with sciatica. Prior to insertion of the Amos Catheter, a bladder scan in the Emergency Department showed no urine in the bladder and also when the Amos catheter was inserted into the bladder, there was minimal urine output. SOCIAL HISTORY: He is a nonsmoker and no history of any alcohol abuse. ALLERGIES: HE HAS NO KNOWN ALLERGIES TO ANY MEDICATIONS. PHYSICAL EXAMINATION: GENERAL: The patient is a well-developed, well-nourished, male. He is alert. He is oriented. HEENT: Grossly within normal limits. NECK: Supple. Thyroid not palpable. ABDOMEN: Soft, nondistended, and nontender. No CVA tenderness. No suprapubic tenderness. GENITALIA: The patient is non-circumcised, with normal glans and meatus without any rashes or lesions visualized. Testes are down bilaterally, nontender without any masses. A 16-Turkmen Amos catheter is draining jenifer urine well from the bladder. RECTAL: Normal rectal tone, without fluctuance or masses. Prostate is average sized, smooth, symmetrical, nontender without nodules or indurations, with a palpable median sulcus. LABORATORY DATA: Laboratory evaluation on 11/10/2017, shows a CBC with a WBC count of 8.3, hemoglobin of 10.1, and hematocrit of 30.8 with a platelet count of 210,000. Coag profile shows a PT of 11.8, INR of 1.1, and PTT of 29.4. Chem profile shows a sodium of 145, potassium of 4.3, chloride of 95, CO2 of 34, BUN and creatinine of 95 and 3.7 respectively with the GFR of 17 indicating chronic kidney disease stage V. Random glucose is 102. Hemoglobin A1c was 8.6. Calcium is 10.1. DIAGNOSTIC IMPRESSION: At this point in time: 1. Prostate cancer. 2. A 4.9 cm right lower pole renal mass to be evaluated with MRI. 3. Chronic kidney disease, stage V. PLAN: 1. Check MRI. 2. Total PSA. Jesus Guzman MD DAVID
[2017-11-10 17:12] LABS: SQUAMOUS EPITHIAL < 1 /hpf (0-5); URINE BACTERIA RARE (<OCC); URINE BILIRUBIN NEGATIVE (NEGATIVE); URINE BLOOD NEGATIVE (NEGATIVE); URINE CLARITY CLOUDY (Clear); URINE COLOR YELLOW (YELLOW); URINE GLUCOSE (UA) NEG (Normal); URINE LEUKOCYTE ESTERASE NEG Leu/uL (Negative); URINE PROTEIN 30 mg/dL (NEGATIVE); URINE UROBILINOGEN 0.2-1.0 mg/dL (0.2-1.0)
[2017-11-10 17:29] LABS: CREATININE, RANDOM URINE 103.3 mg/dL
[2017-11-10] MEDS ORDERED: Patient's Own Med (Rosuvastatin Calcium [Crestor] 10 MG) PO SCH (22:00)
--- NOTE | 2017-11-11 04:21 | CON ---
DATE: NEPHROLOGY CONSULTATION LOCATION: [facility]. HISTORY OF PRESENT ILLNESS: A 66-year-old male with past medical history of hypertension, diabetes, CKD, status post DVT, prostate CA, status post radiation, and hyperthyroidism who presented to ED due to severe left lower extremity pain; found to be in acute renal failure for which Nephrology is being consulted. The patient reports that his left lower extremity pain started about 2 months ago and has been intermittent; however has been much more severe over the past 3 days. The patient has been using naproxen intermittently where the pain approximately 2 to 3 times per week however has been having to use it regularly for the past 3 days. The patient otherwise also reports some nausea with decreased p.o. intake. He has been eating well up until last week; did not vomit. The patient otherwise denies any shortness of breath, chest pain, or palpitations. Denies any difficulty urinating; urinates about 4 to 5 times per night. He reports that over the last few days urine has been more slow. He also reports some pain on urination. PAST MEDICAL HISTORY: As above. Also with arthritis involving back pain and right knee pain, herniated disc, and spinal stenosis. FAMILY HISTORY: Denies anyone having kidney disease as per his knowledge. SOCIAL HISTORY: Denies cigarette use. REVIEW OF SYSTEMS: CONSTITUTIONAL: Decreased appetite recently. HEENT: Reports vision being stable. RESPIRATORY: Denies any difficulty breathing. CARDIOVASCULAR: As per HPI. GASTROINTESTINAL: As per HPI. GENITOURINARY: As per HPI. MUSCULOSKELETAL: As per HPI. SKIN: Denies any itching or rashes. NEUROLOGIC: Denies any dizziness and occasional headaches. PHYSICAL EXAMINATION: VITAL SIGNS: This evening, blood pressure of 113/64, heart rate of 85, respirations of 20, temperature of 97.9, and O2 saturation of 99% on room air. GENERAL: No distress. [place] coherently in full sentences. HEENT: Moist mucous membranes and nonicteric. No cervical lymphadenopathy. RESPIRATORY: Lungs are clear to auscultation bilaterally. No rales. No rhonchi. No wheezes. CARDIOVASCULAR: Heart sounds S1 and S2 normal. No murmurs. No gallops. No rubs. GASTROINTESTINAL: Abdomen is soft, nontender, and nondistended. GENITOURINARY: No bladder distention. EXTREMITIES: Minimal bilateral lower leg edema. SKIN: Warm. No cyanosis. MUSCULOSKELETAL: No tenderness to palpation of spine. No CVA tenderness. NEUROLOGIC: No numbness of feet. PSYCHIATRIC: Normal mood. Normal affect. LABORATORY DATA: CBC: WBC of 8.3, hemoglobin of 10.1, hematocrit of 30.8, and platelets of 210. Chemistry panel: Sodium of 145, potassium of 4.3, chloride of 95, bicarbonate of 34, BUN of 95, and creatinine of 3.7. Glucose of 103, calcium of 10.1, and albumin from admission of 4.7. Hemoglobin A1c of 8.6. Urine sodium of 39, creatinine of 103, and FENa calculated at 1%. UA 30 mg/dL protein, leukocyte esterase negative, 1 rbc and 1 wbc per high-power filed, but negative. RADIOLOGIC DATA: Renal ultrasound directly reviewed showed some thinning of cortices bilaterally, otherwise right kidney with large mass. IMAGING DATA: Lumbar spine x-ray with report being read as severe compression deformity of L3 vertebra, diffuse porosis of compressed vertebrae suggesting possible sporadic metastasis, and sporadic focus seen in L5 vertebral body. Chest x-ray no significant pulmonary vascular congestion. ASSESSMENT AND PLAN: 1. Acute renal failure, acute kidney injury on chronic kidney disease stage 3b. The patient's history consistent with decreased p.o. intake in the setting of having severe left leg pain; also concomitantly on long-acting loop diuretic, thiazide diuretic and with loss of autoregulation with being on angiotensin receptor blockers; or point where prerenal etiology of acute renal failure; nonsteroidal anti-inflammatory drugs use also further disrupts ability of renal autoregulation. a. Agree with volume repletion with intravenous fluids with normal saline at 100 mL per hour. b. Continue to avoid nephrotoxic agents. c. Avoid nonsteroidal anti-inflammatory use. d. In light of lumbar x-ray findings consistent with possible metastasis, we will also pursue workup for myeloma. 2. Chronic kidney disease stage 3b. The patient with proteinuria on multiple urinalysis; likely consistent with diabetic nephropathy; we will check random urine for protein and creatinine and microalbumin. a. Continue to hold angiotensin receptor blockers for now in the setting of acute kidney injury. 3. Hypertension. Blood pressure starts controlled. Diuretic and angiotensin receptor blockers being held; currently only on amlodipine 10 mg daily and labetalol 200 mg b.i.d. We will hold labetalol for now and discontinue with amlodipine. 4. Anemia likely due to advanced chronic kidney disease. We will check iron studies and supplement as needed. 5. Hypercalcemia seen initially on presentation, improving with volume repletion. We will check for myeloma. We will also check PTH and vitamin D 25-hydroxy level. 6. Metabolic alkalosis in the setting of being on loop and thiazide diuretics; should improve with normal saline for volume repletion. Thank you for this referral. We will be following up. Kevin Espino MD
[2017-11-11] MEDS: Levothyroxine 175 MCG TAB PO SCH (05:37)
[2017-11-11 08:17] LABS: HEMOGLOBIN 9.2 g/dL (12.0-18.0); MEAN CELL VOLUME 91.1 fl (80.0-94.0); MEAN CORPUSCULAR HEMOGLOBIN 29.5 pg (27.0-31.0); MEAN CORPUSCULAR HGB CONC 32.4 g/dL (33.0-37.0); RBC 3.11 Mil/uL (4.40-5.90); RED CELL DISTRIBUTION WIDTH 15.1 % (11.5-14.5); WHITE BLOOD COUNT 8.2 K/uL (4.8-10.8)
[2017-11-11 09:08] LABS: ALB/GLOB RATIO 1.2 (1.0-2.1); ALBUMIN 3.5 g/dL (3.5-5.0); CALCIUM 9.2 mg/dL (8.4-10.2)
[2017-11-11] MEDS: Insulin Detemir 100 Units/ml Inj SC SCH (09:50)
[2017-11-11] MEDS: Pantoprazole 20 mg EC Tab PO SCH (09:50)
--- NOTE | 2017-11-11 10:38 | CP.PCM.PN ---
Subjective - Date & Time of Evaluation Date of Evaluation: 11/11/17 Time of Evaluation: 10:30 - Subjective Subjective: Patient seen bedside .Pain is a little better . Participating with PT . Hemodynamically stable, afebrile No acute issues overnight Unable to lie flat for MRI of spine and renal Objective - Vital Signs/Intake and Output Vital Signs (last 24 hours): Temp Pulse Resp BP Pulse Ox 98.3 F 79 20 126/72 97 11/11/17 08:35 11/11/17 09:49 11/11/17 08:35 11/11/17 09:49 11/11/17 08:35 Intake and Output: 11/11/17 11/11/17 06:59 18:59 Intake Total 200 Output Total 550 Balance -350 - Medications Medications: Current Medications Amlodipine Besylate (Norvasc) 5 mg PO DAILY [facility] Last Admin: 11/11/17 09:49 Dose: 5 mg Atorvastatin Calcium (Lipitor) 20 mg PO [facility] Last Admin: 11/10/17 21:09 Dose: 20 mg Insulin Detemir (Levemir) 20 units SC BID [facility] Last Admin: 11/11/17 09:50 Dose: Not Given Labetalol HCl (Trandate) 200 mg PO BID [facility] Last Admin: 11/10/17 17:29 Dose: Not Given Levothyroxine Sodium (Synthroid) 175 mcg PO DAILY@0630 [facility] Last Admin: 11/11/17 05:37 Dose: 175 mcg Morphine Sulfate (Morphine) 6 mg IVP Q6H PRN PRN Reason: Pain, severe (8-10) Last Admin: 11/10/17 17:29 Dose: 6 mg Morphine Sulfate (Morphine) 4 mg IVP Q6 PRN PRN Reason: Pain, moderate (4-7) Last Admin: 11/10/17 18:06 Dose: 4 mg Pantoprazole Sodium (Protonix Ec Tab) 20 mg PO DAILY [facility] Last Admin: 11/11/17 09:50 Dose: 20 mg Sennosides (Senokot Tab) 25.8 mg PO [facility] Last Admin: 11/10/17 21:09 Dose: 25.8 mg Sitagliptin Phosphate (Januvia) 50 mg PO BID [facility] - Labs Labs: 11/11/17 06:54 11/11/17 06:54 PT 11.8 Seconds (9.8-13.1) 11/10/17 00:35 INR 1.1 (0.9-1.2) 11/10/17 00:35 APTT 29.4 Seconds (25.6-37.1) 11/10/17 00:35 - Constitutional Appears: Non-toxic, No Acute Distress - Head Exam Head Exam: ATRAUMATIC, NORMAL INSPECTION, NORMOCEPHALIC - Eye Exam Eye Exam: EOMI, Normal appearance, PERRL Pupil Exam: NORMAL ACCOMODATION - ENT Exam ENT Exam: Mucous Membranes Moist, Normal Exam - Neck Exam Neck Exam: Full ROM, Normal Inspection - Respiratory Exam Respiratory Exam: Clear to Ausculation Bilateral, NORMAL BREATHING PATTERN. absent: Rales, Rhonchi, Wheezes, Respiratory Distress - Cardiovascular Exam Cardiovascular Exam: REGULAR RHYTHM, RRR, +S1, +S2. absent: JVD - GI/Abdominal Exam GI & Abdominal Exam: Soft, Normal Bowel Sounds. absent: Distended, Guarding, Tenderness, Rebound - Rectal Exam Rectal Exam: Deferred - Extremities Exam Extremities Exam: Normal Capillary Refill, Normal Inspection. absent: Calf Tenderness, Pedal Edema - Back Exam Back Exam: NORMAL INSPECTION. absent: paraspinal tenderness, tenderness, vertebral tenderness - Neurological Exam Neurological Exam: Alert, Awake, CN II-XII Intact, Oriented x3 Additional comments: radiculopathy to lower extremities from back to lower leg - Psychiatric Exam Psychiatric exam: Normal Affect - Skin Skin Exam: Dry, Normal Color, Warm Assessment and Plan - Assessment and Plan (Free Text) Assessment: 66 years old male with hx of DM II, CKD, DVT and 2 years of Chronic back pain with Sciatica, only ambulating with a wheel chair and assistance. He comes because of worsening of the left lower extremity pain, originating from the left groin and down the thighs to below the knee. Bladder scan in the ED showed no urine in bladder. IN ER BUN / Cr found to be 101/3.8 K 5.3 AG 26. Patient had not been eating and drinking very well.He was admitted in telemetry for acute on chronic renal failure with hyperkalemia and back pain with sciatica Started on IVF with improvement of renal function Cr 2.7. US abdomen showed right kidney lower pole solid mass 4.9 cm Thoracic spine imaging showed :Severe compression deformity of L3 vertebra with diffuse sclerosis suspicious for sclerotic metastasis. Questionable sclerotic focus in the L5 vertebra. MRI renal and thoracic lumbar spine ordered but patient unable to tolerate due to severe pain . 1. Acute on chronic renal failure Improving with IVF Cr trending down from 3.8 Renal US showed solid mass 4.9 cm to lower pole of right kidney suspicious for malignancy. MRI renal ordered without contrast to brandon evaluate th emass. Can not give contrast due to renal failure Hold valsartan and HCTZ Nephro consult appreciated Check urine lytes , plasma and urine protein electrophoresis , PTH, Vitamin D 2. Intractable back pain and radiculopathy no urinary retention or saddle anesthesia Xray of spine showed severe compression fracture L 3 and lesion of L5 Will perform MRI Thoracic and lumbar spine to better evaluate if the fracture is acute or chronic . If fracture is acute patient may benefit from kyphoplasty Follow up SPEP , UPEP, urine cytology , PSA Will need biopsy of lumbar spine lesion by IR Hem/on consult Continue pain management , Flexeril PT/OT 3. Hyperkalemia given D50 and Insulin with sodium bicarbonate and calcium Gluconate given in Ed discontinued valsartan/ HCTZ and Demedex Follow electrolytes 4. DM with Hypoglycemia Hgb A1c 8.6 Hold Metformin and lemir diabetic diet Accuchecks and insulin coverage 5. Anemia of chronic disease Hgb 9.2 Check anemia work up 6.Hypothyroidism continue Synthroid 7. Hx of Prostate Cancer not on treatment urology consulted check PSA 8. DVT prophylaxis Hold Eliquis for possible procedure
[2017-11-11] MEDS: Lidocaine 5% Patch TD SCH (12:33)
[2017-11-11] MEDS: Sodium Chloride 0.9% 1,000 ML IV SCH (14:51)
--- NOTE | 2017-11-11 16:46 | CP.PCM.CON ---
History of Present Illness - History of Present Illness History of Present Illness: 66 year old male with a history of HTN, DM, hypothyroid, DVT, prostate cancer s/ p brachytherapy, chronic back pain, presenting with worsening back pain, found to have a right renal mass, sclerotic bone lesions with lumbar vertebrae compression fracture. The patient reports to chronic back pain which has progressively worsened. The pain radiates down to the scrotum and thigh. Past medical history; HTN, DM, hypothyroid, DVT, prostate cancer s/p brachytherapy Past surgical history: Denies Family history: Denies hematologic and oncologic problems Social history: Former alcohol Allergies: NKA Review of systems: All remaining review of systems including HEENT, cardiovascular, respiratory, gastrointestinal, genitourinary, musculskeletal, dermatologic, neurologic, and psychiatric are negative unless mentioned in the HPI. Past Patient History - Infectious Disease Hx of Infectious Diseases: None - Past Medical History & Family History Past Medical History?: Yes - Past Social History Smoking Status: Never Smoked Chewing Tobacco Use: No Cigar Use: No Alcohol: None Drugs: Denies - CARDIAC Hx Hypercholesterolemia: Yes Hx Hypertension: Yes - PULMONARY Hx Respiratory Disorders: No - NEUROLOGICAL Hx Neurological Disorder: No - HEENT Hx HEENT Problems: No - RENAL Hx Chronic Kidney Disease: Yes - ENDOCRINE/METABOLIC Hx Hypothyroidism: Yes - HEMATOLOGICAL/ONCOLOGICAL Hx Blood Disorders: Yes Hx Cancer: Yes (prostatic 7 yrs ago) - INTEGUMENTARY Hx Dermatological Problems: No - MUSCULOSKELETAL/RHEUMATOLOGICAL Hx Arthritis: Yes (back pain, r knee pain) - GASTROINTESTINAL Hx Gastrointestinal Disorders: No - GENITOURINARY/GYNECOLOGICAL Hx Genitourinary Disorders: Yes Hx Prostate Cancer: Yes (7 years ago) - PSYCHIATRIC Hx Substance Use: No - SURGICAL HISTORY Hx Surgeries: No Hx Herniorrhaphy: Yes (Umbilical) - ANESTHESIA Hx Anesthesia: Yes Hx Anesthesia Reactions: No Meds Allergies/Adverse Reactions: Allergies Allergy/AdvReac Type Severity Reaction Status Date / Time No Known Allergies Allergy Verified 06/06/17 21:01 - Medications Medications: Current Medications Amlodipine Besylate (Norvasc) 5 mg PO DAILY [facility] Last Admin: 11/11/17 09:49 Dose: 5 mg Atorvastatin Calcium (Lipitor) 20 mg PO HS [facility] Last Admin: 11/10/17 21:09 Dose: 20 mg Cyclobenzaprine HCl (Flexeril) 5 mg PO TID PRN PRN Reason: Muscle spasm Last Admin: 11/11/17 14:35 Dose: 5 mg Gabapentin (Neurontin) 100 mg PO TID [facility] Last Admin: 11/11/17 14:35 Dose: 100 mg Sodium Chloride (Sodium Chloride 0.9%) 1,000 mls @ 100 mls/hr IV .Q10H [facility] Stop: 11/12/17 14:38 Last Admin: 11/11/17 14:51 Dose: 100 mls/hr Insulin Detemir (Levemir) 20 units SC BID [facility] Last Admin: 11/11/17 09:50 Dose: Not Given Labetalol HCl (Trandate) 200 mg PO BID [facility] Last Admin: 11/10/17 17:29 Dose: Not Given Levothyroxine Sodium (Synthroid) 175 mcg PO DAILY@0630 [facility] Last Admin: 11/11/17 05:37 Dose: 175 mcg Lidocaine (Lidoderm) 1 ea TD DAILY [facility] Last Admin: 11/11/17 12:33 Dose: 1 ea Morphine Sulfate (Morphine) 6 mg IVP Q6H PRN PRN Reason: Pain, severe (8-10) Last Admin: 11/10/17 17:29 Dose: 6 mg Morphine Sulfate (Morphine) 4 mg IVP Q6 PRN PRN Reason: Pain, moderate (4-7) Last Admin: 11/10/17 18:06 Dose: 4 mg Pantoprazole Sodium (Protonix Ec Tab) 20 mg PO DAILY [facility] Last Admin: 11/11/17 09:50 Dose: 20 mg Sennosides (Senokot Tab) 25.8 mg PO HS [facility] Last Admin: 11/10/17 21:09 Dose: 25.8 mg Sitagliptin Phosphate (Januvia) 50 mg PO BID [facility] Physical Exam - Head Exam Head Exam: ATRAUMATIC - Eye Exam Eye Exam: Normal appearance - ENT Exam ENT Exam: Mucous Membranes Dry - Respiratory Exam Respiratory Exam: NORMAL BREATHING PATTERN - Cardiovascular Exam Cardiovascular Exam: +S1, +S2 - GI/Abdominal Exam GI & Abdominal Exam: Normal Bowel Sounds - Extremities Exam Extremities exam: Positive for: normal inspection - Neurological Exam Neurological exam: Oriented x3 - Psychiatric Exam Psychiatric exam: Normal Affect, Normal Mood - Skin Skin Exam: Warm Results - Vital Signs Recent Vital Signs: Last Vital Signs Temp 98.9 F 11/11/17 16:09 Pulse 84 11/11/17 16:09 Resp 20 11/11/17 16:09 BP 129/61 11/11/17 16:09 Pulse Ox 99 11/11/17 16:09 - Labs Result Diagrams: 11/11/17 06:54 11/11/17 06:54 Labs: Laboratory Results - last 24 hr 11/10/17 11/10/17 11/10/17 12:12 14:45 16:00 WBC RBC Hgb Hct MCV MCH MCHC RDW Plt Count Sodium Potassium Chloride Carbon Dioxide Anion Gap BUN Creatinine Est GFR ( Amer) Est GFR (Non-Af Amer) POC Glucose (mg/dL) 96 59 L Random Glucose Calcium Iron TIBC % Saturation Ferritin Total Bilirubin AST ALT Alkaline Phosphatase Total Protein Albumin Globulin Albumin/Globulin Ratio % Free PSA Not calculated Urine Color Urine Clarity Urine pH Ur Specific [place] Urine Protein Urine Glucose (UA) Urine Ketones Urine Blood Urine Nitrate Urine Bilirubin Urine Urobilinogen Ur Leukocyte Esterase Urine RBC (Auto) Urine Microscopic WBC Ur Squamous Epith Cells Urine Bacteria Ur Random Creatinine Ur Random Sodium Urine Creatinine Urine Microalbumin Microalb/Creat Ratio 11/10/17 11/10/17 11/10/17 16:21 16:40 16:40 WBC RBC Hgb Hct MCV MCH MCHC RDW Plt Count Sodium Potassium Chloride Carbon Dioxide Anion Gap BUN Creatinine Est GFR ( Amer) Est GFR (Non-Af Amer) POC Glucose (mg/dL) 111 H Random Glucose Calcium Iron TIBC % Saturation Ferritin Total Bilirubin AST ALT Alkaline Phosphatase Total Protein Albumin Globulin Albumin/Globulin Ratio % Free PSA Urine Color Urine Clarity Urine pH Ur Specific [place] Urine Protein Urine Glucose (UA) Urine Ketones Urine Blood Urine Nitrate Urine Bilirubin Urine Urobilinogen Ur Leukocyte Esterase Urine RBC (Auto) Urine Microscopic WBC Ur Squamous Epith Cells Urine Bacteria Ur Random Creatinine 103.3 Ur Random Sodium 39 Urine Creatinine 125 Urine Microalbumin 21.5 Microalb/Creat Ratio 172 H 11/10/17 11/10/17 11/11/17 16:40 21:04 05:34 WBC RBC Hgb Hct MCV MCH MCHC RDW Plt Count Sodium Potassium Chloride Carbon Dioxide Anion Gap BUN Creatinine Est GFR ( Amer) Est GFR (Non-Af Amer) POC Glucose (mg/dL) 78 75 Random Glucose Calcium Iron TIBC % Saturation Ferritin Total Bilirubin AST ALT Alkaline Phosphatase Total Protein Albumin Globulin Albumin/Globulin Ratio % Free PSA Urine Color Yellow Urine Clarity Cloudy Urine pH 6.0 Ur Specific [place] 1.014 Urine Protein 30 Urine Glucose (UA) Neg Urine Ketones Negative Urine Blood Negative Urine Nitrate Negative Urine Bilirubin Negative Urine Urobilinogen 0.2-1.0 Ur Leukocyte Esterase Neg Urine RBC (Auto) 1 Urine Microscopic WBC 1 Ur Squamous Epith Cells < 1 Urine Bacteria Rare Ur Random Creatinine Ur Random Sodium Urine Creatinine Urine Microalbumin Microalb/Creat Ratio 11/11/17 11/11/17 11/11/17 06:54 06:54 06:54 WBC 8.2 RBC 3.11 L Hgb 9.2 L Hct 28.3 L MCV 91.1 MCH 29.5 MCHC 32.4 L RDW 15.1 H Plt Count 192 Sodium 145 Potassium 4.6 Chloride 101 Carbon Dioxide 29 Anion Gap 20 BUN 72 H Creatinine 2.7 H Est GFR ( Amer) 29 Est GFR (Non-Af Amer) 24 POC Glucose (mg/dL) Random Glucose 111 H Calcium 9.2 Iron 35 L TIBC 261 % Saturation 14 L Ferritin 146.0 Total Bilirubin 0.4 AST 41 ALT 32 Alkaline Phosphatase 79 Total Protein 6.6 Albumin 3.5 D Globulin 3.0 Albumin/Globulin Ratio 1.2 % Free PSA Urine Color Urine Clarity Urine pH Ur Specific [place] Urine Protein Urine Glucose (UA) Urine Ketones Urine Blood Urine Nitrate Urine Bilirubin Urine Urobilinogen Ur Leukocyte Esterase Urine RBC (Auto) Urine Microscopic WBC Ur Squamous Epith Cells Urine Bacteria Ur Random Creatinine Ur Random Sodium Urine Creatinine Urine Microalbumin Microalb/Creat Ratio 11/11/17 11/11/17 10:57 16:27 WBC RBC Hgb Hct MCV MCH MCHC RDW Plt Count Sodium Potassium Chloride Carbon Dioxide Anion Gap BUN Creatinine Est GFR ( Amer) Est GFR (Non-Af Amer) POC Glucose (mg/dL) 231 H 295 H Random Glucose Calcium Iron TIBC % Saturation Ferritin Total Bilirubin AST ALT Alkaline Phosphatase Total Protein Albumin Globulin Albumin/Globulin Ratio % Free PSA Urine Color Urine Clarity Urine pH Ur Specific [place] Urine Protein Urine Glucose (UA) Urine Ketones Urine Blood Urine Nitrate Urine Bilirubin Urine Urobilinogen Ur Leukocyte Esterase Urine RBC (Auto) Urine Microscopic WBC Ur Squamous Epith Cells Urine Bacteria Ur Random Creatinine Ur Random Sodium Urine Creatinine Urine Microalbumin Microalb/Creat Ratio Assessment & Plan (1) Renal mass Assessment and Plan: for MRI urology evaluation suspicious for malignancy Status: Acute (2) Bone lesion Assessment and Plan: suspect bone metastasis compression fracture; kyphoplasty and biopsy evaluation Status: Acute (3) Anemia Assessment and Plan: anemia of CKD will check ferritin, retic count, b12, folate to further characterize Status: Acute (4) History of prostate cancer Assessment and Plan: s/p brachytherapy f/u psa Thank you for this interesting consult. Status: Acute
--- NOTE | 2017-11-11 18:33 | CP.PCM.PN ---
Subjective - Date & Time of Evaluation Date of Evaluation: 11/11/17 Time of Evaluation: 17:00 - Subjective Subjective: Patient denies complaints; no nausea/vomiting or sob; leg pain improved; Objective - Vital Signs/Intake and Output Vital Signs (last 24 hours): Temp Pulse Resp BP Pulse Ox 98.9 F 84 20 129/61 99 11/11/17 16:09 11/11/17 16:09 11/11/17 16:09 11/11/17 16:09 11/11/17 16:09 Intake and Output: 11/11/17 11/11/17 06:59 18:59 Intake Total 200 1800 Output Total 550 1100 Balance -350 700 - Medications Medications: Current Medications Amlodipine Besylate (Norvasc) 5 mg PO DAILY [facility] Last Admin: 11/11/17 09:49 Dose: 5 mg Atorvastatin Calcium (Lipitor) 20 mg PO HS [facility] Last Admin: 11/10/17 21:09 Dose: 20 mg Cyclobenzaprine HCl (Flexeril) 5 mg PO TID PRN PRN Reason: Muscle spasm Last Admin: 11/11/17 14:35 Dose: 5 mg Gabapentin (Neurontin) 100 mg PO TID [facility] Last Admin: 11/11/17 17:18 Dose: 100 mg Sodium Chloride (Sodium Chloride 0.9%) 1,000 mls @ 100 mls/hr IV .Q10H [facility] Stop: 11/12/17 14:38 Last Admin: 11/11/17 14:51 Dose: 100 mls/hr Insulin Detemir (Levemir) 20 units SC BID [facility] Last Admin: 11/11/17 09:50 Dose: Not Given Labetalol HCl (Trandate) 200 mg PO BID [facility] Last Admin: 11/10/17 17:29 Dose: Not Given Levothyroxine Sodium (Synthroid) 175 mcg PO DAILY@0630 [facility] Last Admin: 11/11/17 05:37 Dose: 175 mcg Lidocaine (Lidoderm) 1 ea TD DAILY [facility] Last Admin: 11/11/17 12:33 Dose: 1 ea Morphine Sulfate (Morphine) 6 mg IVP Q6H PRN PRN Reason: Pain, severe (8-10) Last Admin: 11/10/17 17:29 Dose: 6 mg Morphine Sulfate (Morphine) 4 mg IVP Q6 PRN PRN Reason: Pain, moderate (4-7) Last Admin: 11/10/17 18:06 Dose: 4 mg Pantoprazole Sodium (Protonix Ec Tab) 20 mg PO DAILY [facility] Last Admin: 11/11/17 09:50 Dose: 20 mg Sennosides (Senokot Tab) 25.8 mg PO HS [facility] Last Admin: 11/10/17 21:09 Dose: 25.8 mg Sitagliptin Phosphate (Januvia) 50 mg PO BID [facility] - Labs Labs: 11/11/17 06:54 11/11/17 06:54 PT 11.8 Seconds (9.8-13.1) 11/10/17 00:35 INR 1.1 (0.9-1.2) 11/10/17 00:35 APTT 29.4 Seconds (25.6-37.1) 11/10/17 00:35 - Constitutional Appears: Non-toxic, No Acute Distress - Eye Exam Eye Exam: absent: Scleral icterus - ENT Exam ENT Exam: Mucous Membranes Moist - Respiratory Exam Respiratory Exam: Clear to Ausculation Bilateral. absent: Respiratory Distress - Cardiovascular Exam Cardiovascular Exam: RRR, +S1, +S2 - GI/Abdominal Exam GI & Abdominal Exam: Soft. absent: Distended, Tenderness - Exam Exam: absent: Bladder Distension - Extremities Exam Additional comments: no leg edema; - Neurological Exam Neurological Exam: Alert, Awake - Psychiatric Exam Psychiatric exam: Normal Mood. absent: Agitated - Skin Skin Exam: Warm. absent: Cyanosis Assessment and Plan (1) Acute on chronic renal failure Assessment & Plan: BOO on CKD IIIB; consistent with pre-renal etiology with renal function improving on IVF; stable electrolyte and volume status; has mild proteinuria, pursuing further serologic workup (including for myeloma given possible metastatic findings); -continue NS at 100 cc/hr Status: Acute (2) Anemia Assessment & Plan: Hemoconcentrated on presentation, hgb now below goal for CKD (10-11 g); consider giving EPO, will discuss with heme; Status: Acute (3) Renal mass Assessment & Plan: New diagnosis; needs MRI for better assessment, urology to f/u thereafter; Status: Acute (4) Hypertension Assessment & Plan: BP currently controlled on amlodipine only; continue to hold diuretics and ARB; Status: Acute
[2017-11-12] MEDS: Sodium Chloride 0.9% 1,000 ML IV SCH ×2 (00:45→13:20)
[2017-11-12] MEDS: Levothyroxine 175 MCG TAB PO SCH (05:43)
[2017-11-12] MEDS: Insulin Lispro (humaLOG) 100 Units/ml Inj SC SCH ×4 (07:00→21:09)
--- NOTE | 2017-11-12 07:25 | CP.PCM.PN ---
Subjective - Date & Time of Evaluation Date of Evaluation: 11/12/17 Time of Evaluation: 09:30 - Subjective Subjective: Patient seen and examined bedside. States that pain is better but it returns with minimal movement Both legs feel heavy Denies and saddle anesthesia, urinary or bowel incontinence Hemodynamically stable,a febrile Objective - Vital Signs/Intake and Output Vital Signs (last 24 hours): Temp Pulse Resp BP Pulse Ox 97.5 F L 71 18 111/63 98 11/12/17 05:18 11/12/17 05:18 11/12/17 05:18 11/12/17 05:18 11/12/17 05:18 - Medications Medications: Current Medications Amlodipine Besylate (Norvasc) 5 mg PO DAILY [facility] Last Admin: 11/11/17 09:49 Dose: 5 mg Atorvastatin Calcium (Lipitor) 20 mg PO HS [facility] Last Admin: 11/11/17 21:21 Dose: 20 mg Cyclobenzaprine HCl (Flexeril) 5 mg PO TID PRN PRN Reason: Muscle spasm Last Admin: 11/11/17 14:35 Dose: 5 mg Gabapentin (Neurontin) 100 mg PO TID [facility] Last Admin: 11/11/17 17:18 Dose: 100 mg Sodium Chloride (Sodium Chloride 0.9%) 1,000 mls @ 100 mls/hr IV .Q10H [facility] Stop: 11/12/17 14:38 Last Admin: 11/12/17 00:45 Dose: 100 mls/hr Iron Sucrose 100 mg/ Sodium (Chloride) 105 mls @ 105 mls/hr IVPB DAILY [facility] Insulin Detemir (Levemir) 20 units SC BID [facility] Last Admin: 11/11/17 09:50 Dose: Not Given Insulin Human Lispro (Humalog) 0 units SC ACHS [facility] PRN Reason: Protocol Last Admin: 11/12/17 07:00 Dose: 2 u Labetalol HCl (Trandate) 200 mg PO BID [facility] Last Admin: 11/10/17 17:29 Dose: Not Given Levothyroxine Sodium (Synthroid) 175 mcg PO DAILY@0630 [facility] Last Admin: 11/12/17 05:43 Dose: 175 mcg Lidocaine (Lidoderm) 1 ea TD DAILY [facility] Last Admin: 11/11/17 12:33 Dose: 1 ea Morphine Sulfate (Morphine) 6 mg IVP Q6H PRN PRN Reason: Pain, severe (8-10) Last Admin: 11/10/17 17:29 Dose: 6 mg Morphine Sulfate (Morphine) 4 mg IVP Q6 PRN PRN Reason: Pain, moderate (4-7) Last Admin: 11/12/17 00:39 Dose: 4 mg Pantoprazole Sodium (Protonix Ec Tab) 20 mg PO DAILY [facility] Last Admin: 11/11/17 09:50 Dose: 20 mg Sennosides (Senokot Tab) 25.8 mg PO HS [facility] Last Admin: 11/11/17 21:21 Dose: 25.8 mg Sitagliptin Phosphate (Januvia) 50 mg PO BID [facility] - Labs Labs: 11/11/17 06:54 11/11/17 06:54 PT 11.8 Seconds (9.8-13.1) 11/10/17 00:35 INR 1.1 (0.9-1.2) 11/10/17 00:35 APTT 29.4 Seconds (25.6-37.1) 11/10/17 00:35 - Constitutional Appears: Non-toxic, No Acute Distress - Head Exam Head Exam: ATRAUMATIC, NORMAL INSPECTION, NORMOCEPHALIC - Eye Exam Eye Exam: EOMI, Normal appearance, PERRL Pupil Exam: NORMAL ACCOMODATION - ENT Exam ENT Exam: Mucous Membranes Moist, Normal Exam - Neck Exam Neck Exam: Full ROM - Respiratory Exam Respiratory Exam: Clear to Ausculation Bilateral, NORMAL BREATHING PATTERN. absent: Rales, Rhonchi, Wheezes - Cardiovascular Exam Cardiovascular Exam: Irregular Rhythm, +S1, +S2. absent: JVD - GI/Abdominal Exam GI & Abdominal Exam: Normal Bowel Sounds. absent: Distended, Guarding, Tenderness, Rebound - Rectal Exam Rectal Exam: Deferred - Extremities Exam Extremities Exam: Normal Capillary Refill, Normal Inspection. absent: Calf Tenderness, Pedal Edema - Back Exam Back Exam: NORMAL INSPECTION. absent: paraspinal tenderness, tenderness, vertebral tenderness - Neurological Exam Neurological Exam: Alert, Awake, CN II-XII Intact, Oriented x3 - Psychiatric Exam Psychiatric exam: Normal Affect, Normal Mood - Skin Skin Exam: Dry, Intact, Normal Color, Warm Assessment and Plan - Assessment and Plan (Free Text) Assessment: 66 years old male with hx of DM II, CKD, DVT and 2 years of Chronic back pain with Sciatica, only ambulating with a wheel chair and assistance. He comes because of worsening of the left lower extremity pain, originating from the left groin and down the thighs to below the knee. Bladder scan in the ED showed no urine in bladder. IN ER BUN / Cr found to be 101/3.8 K 5.3 AG 26. Patient had not been eating and drinking very well.He was admitted in telemetry for acute on chronic renal failure with hyperkalemia and back pain with sciatica Started on IVF with improvement of renal function Cr 2.7. US abdomen showed right kidney lower pole solid mass 4.9 cm Thoracic spine imaging showed :Severe compression deformity of L3 vertebra with diffuse sclerosis suspicious for sclerotic metastasis. Questionable sclerotic focus in the L5 vertebra. MRI renal and thoracic lumbar spine ordered but patient unable to tolerate due to severe pain . Arrangements made for MRI with sedation on Monday. IR consult for possible Kyphoplasty and L3 biopsy 1. Acute on chronic renal failure Improving with IVF Cr trending down from 3.8-- 2.2 Renal US showed solid mass 4.9 cm to lower pole of right kidney suspicious for malignancy. MRI renal ordered without contrast to better evaluate the mass. Can not give contrast due to renal failure Hold valsartan and HCTZ Nephro consult appreciated f/u urine lytes , plasma and urine protein electrophoresis , PTH, Vitamin D 2. Intractable back pain and radiculopathy no urinary retention or saddle anesthesia Xray of spine showed severe compression fracture L 3 and lesion of L5 Will perform MRI Thoracic and lumbar spine to better evaluate if the fracture is acute or chronic . If fracture is acute patient may benefit from kyphoplasty . IR consulted for possible kyphoplasty and L3 biopsy Follow up SPEP , UPEP, urine cytology , PSA Will need biopsy of lumbar spine lesion by IR Hem/on consult with Dr. coughlin appreciated Continue pain management , Flexeril, lidoderm patch Continue PT/OT 3. Hyperkalemia-- resolved given D50 and Insulin with sodium bicarbonate and calcium Gluconate given in Ed discontinued valsartan/ HCTZ and Demadex Follow electrolytes 4. DM with Hypoglycemia Hgb A1c 8.6 Hold Metformin and lemir diabetic diet Accuchecks and insulin coverage 5. Anemia of chronic disease and iron deficiency Hgb 9.2 start Venofer IV 6.Hypothyroidism continue Synthroid TSH - 2 ( controlled) 7. Hx of Prostate Cancer post Brcytherapy urology consulted f/u PSA 8. DVT prophylaxis Hold Eliquis for possible procedure Start Heparin SQ
[2017-11-12 07:45] LABS: HEMOGLOBIN 9.1 g/dL (12.0-18.0); MEAN CELL VOLUME 89.7 fl (80.0-94.0); MEAN CORPUSCULAR HEMOGLOBIN 30.2 pg (27.0-31.0); MEAN CORPUSCULAR HGB CONC 33.7 g/dL (33.0-37.0); RED CELL DISTRIBUTION WIDTH 14.8 % (11.5-14.5)
[2017-11-12 08:28] LABS: CALCIUM 8.9 mg/dL (8.4-10.2)
[2017-11-12] MEDS: Pantoprazole 20 mg EC Tab PO SCH (09:33)
--- NOTE | 2017-11-12 13:36 | PN ---
DATE: 11/12/2017 FOLLOWUP NOTE TIME OF FOLLOWUP: Roughly around 12:55 p.m. SUBJECTIVE: The patient is currently resting comfortably at the bedside with the Amos catheter draining jenifer urine well. PHYSICAL EXAMINATION: ABDOMEN: His abdomen is soft, not distended or tender. No CVA tenderness and no suprapubic tenderness. LABORATORY DATA: Followup PSA was drawn and the result is still pending. Also the patient is waiting for his abdominopelvic MRI for followup of the possible renal mass seen on ultrasound. The patient has severe renal insufficiency and also prostate cancer. DIAGNOSTIC IMPRESSION: To this patient is: 1. Possible renal mass. 2. Severe renal insufficiency. 3. Prostate cancer. PLAN: To check the abdominopelvic MRI without contrast and check his total PSA and also check his kidney function to see if it improves with the Amos catheter. Jesus Guzman MD
[2017-11-12] MEDS: Lidocaine 5% Patch TD SCH (15:33)
--- NOTE | 2017-11-12 18:57 | CP.PCM.PN ---
Subjective - Date & Time of Evaluation Date of Evaluation: 11/12/17 Time of Evaluation: 19:30 - Subjective Subjective: Patient denies any sob, nausea/vomiting; leg pain improved; Objective - Vital Signs/Intake and Output Vital Signs (last 24 hours): Temp Pulse Resp BP Pulse Ox 98.0 F 69 20 138/71 99 11/12/17 13:13 11/12/17 13:13 11/12/17 13:13 11/12/17 13:13 11/12/17 13:13 Intake and Output: 11/12/17 11/12/17 06:59 18:59 Output Total 850 Balance -850 - Medications Medications: Current Medications Amlodipine Besylate (Norvasc) 5 mg PO DAILY [facility] Last Admin: 11/12/17 09:33 Dose: 5 mg Atorvastatin Calcium (Lipitor) 20 mg PO HS [facility] Last Admin: 11/11/17 21:21 Dose: 20 mg Cyclobenzaprine HCl (Flexeril) 5 mg PO TID PRN PRN Reason: Muscle spasm Last Admin: 11/11/17 14:35 Dose: 5 mg Gabapentin (Neurontin) 100 mg PO TID [facility] Last Admin: 11/12/17 17:14 Dose: 100 mg Heparin Sodium (Porcine) (Heparin) 5,000 units SC Q12 [facility] PRN Reason: Protocol Iron Sucrose 100 mg/ Sodium (Chloride) 105 mls @ 105 mls/hr IVPB DAILY [facility] Last Admin: 11/12/17 09:33 Dose: 105 mls/hr Insulin Detemir (Levemir) 20 units SC BID [facility] Last Admin: 11/11/17 09:50 Dose: Not Given Insulin Human Lispro (Humalog) 0 units SC ACHS [facility] PRN Reason: Protocol Last Admin: 11/12/17 17:12 Dose: 2 u Labetalol HCl (Trandate) 200 mg PO BID [facility] Last Admin: 11/10/17 17:29 Dose: Not Given Levothyroxine Sodium (Synthroid) 175 mcg PO DAILY@0630 [facility] Last Admin: 11/12/17 05:43 Dose: 175 mcg Lidocaine (Lidoderm) 1 ea TD DAILY [facility] Last Admin: 11/12/17 15:33 Dose: Not Given Morphine Sulfate (Morphine) 6 mg IVP Q6H PRN PRN Reason: Pain, severe (8-10) Last Admin: 11/10/17 17:29 Dose: 6 mg Morphine Sulfate (Morphine) 4 mg IVP Q6 PRN PRN Reason: Pain, moderate (4-7) Last Admin: 11/12/17 00:39 Dose: 4 mg Pantoprazole Sodium (Protonix Ec Tab) 20 mg PO DAILY [facility] Last Admin: 11/12/17 09:33 Dose: 20 mg Sennosides (Senokot Tab) 25.8 mg PO HS [facility] Last Admin: 11/11/17 21:21 Dose: 25.8 mg Sitagliptin Phosphate (Januvia) 50 mg PO BID [facility] - Labs Labs: 11/12/17 06:45 11/12/17 06:45 PT 11.8 Seconds (9.8-13.1) 11/10/17 00:35 INR 1.1 (0.9-1.2) 11/10/17 00:35 APTT 29.4 Seconds (25.6-37.1) 11/10/17 00:35 - Constitutional Appears: Non-toxic, No Acute Distress - Eye Exam Eye Exam: absent: Scleral icterus - ENT Exam ENT Exam: Mucous Membranes Moist - Respiratory Exam Respiratory Exam: Clear to Ausculation Bilateral. absent: Respiratory Distress - Cardiovascular Exam Cardiovascular Exam: RRR, +S1, +S2 - GI/Abdominal Exam GI & Abdominal Exam: Soft. absent: Distended, Tenderness - Exam Exam: absent: Bladder Distension - Extremities Exam Additional comments: minimal leg edema; - Neurological Exam Neurological Exam: Alert, Awake - Psychiatric Exam Psychiatric exam: Normal Mood. absent: Agitated - Skin Skin Exam: Warm. 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
[2017-11-13 06:47] LABS: HEMOGLOBIN 9.2 g/dL (12.0-18.0); MEAN CELL VOLUME 89.3 fl (80.0-94.0); MEAN CORPUSCULAR HEMOGLOBIN 29.6 pg (27.0-31.0); MEAN CORPUSCULAR HGB CONC 33.1 g/dL (33.0-37.0); RBC 3.1 Mil/uL (4.40-5.90); RED CELL DISTRIBUTION WIDTH 14.6 % (11.5-14.5); WHITE BLOOD COUNT 7.6 K/uL (4.8-10.8)
[2017-11-13 06:56] LABS: CALCIUM 9.2 mg/dL (8.4-10.2); INR 1.1 (0.9-1.2); PROTHROMBIN TIME 12.4 Seconds (9.8-13.1)
[2017-11-13] MEDS: Insulin Lispro (humaLOG) 100 Units/ml Inj SC SCH ×4 (07:52→21:54)
[2017-11-13] MEDS: Levothyroxine 175 MCG TAB PO SCH (07:53)
[2017-11-13] MEDS: Pantoprazole 20 mg EC Tab PO SCH ×2 (08:35→17:02)
[2017-11-13] MEDS: Lidocaine 5% Patch TD SCH (08:38)
--- NOTE | 2017-11-13 10:31 | CP.PCM.PN ---
Subjective - Date & Time of Evaluation Date of Evaluation: 11/13/17 Time of Evaluation: 10:31 - Subjective Subjective: comfortable this am denies pain in legs today for MRI and bx today hd stable nad Objective - Vital Signs/Intake and Output Vital Signs (last 24 hours): Temp Pulse Resp BP Pulse Ox 98.5 F 77 18 123/71 98 11/13/17 09:00 11/13/17 09:00 11/13/17 09:00 11/13/17 09:00 11/13/17 09:00 Intake and Output: 11/13/17 11/13/17 06:59 18:59 Intake Total 200 Output Total 1800 Balance -1600 - Medications Medications: Current Medications Amlodipine Besylate (Norvasc) 5 mg PO DAILY [facility] Last Admin: 11/13/17 08:35 Dose: Not Given Atorvastatin Calcium (Lipitor) 20 mg PO HS [facility] Last Admin: 11/12/17 21:10 Dose: 20 mg Cyclobenzaprine HCl (Flexeril) 5 mg PO TID PRN PRN Reason: Muscle spasm Last Admin: 11/11/17 14:35 Dose: 5 mg Gabapentin (Neurontin) 100 mg PO TID [facility] Last Admin: 11/13/17 08:35 Dose: Not Given Heparin Sodium (Porcine) (Heparin) 5,000 units SC Q12 [facility] PRN Reason: Protocol Last Admin: 11/13/17 08:35 Dose: Not Given Iron Sucrose 100 mg/ Sodium (Chloride) 105 mls @ 105 mls/hr IVPB DAILY [facility] Last Admin: 11/12/17 09:33 Dose: 105 mls/hr Insulin Detemir (Levemir) 20 units SC BID [facility] Last Admin: 11/11/17 09:50 Dose: Not Given Insulin Human Lispro (Humalog) 0 units SC ACHS [facility] PRN Reason: Protocol Last Admin: 11/13/17 07:52 Dose: 2 u Labetalol HCl (Trandate) 200 mg PO BID [facility] Last Admin: 11/10/17 17:29 Dose: Not Given Levothyroxine Sodium (Synthroid) 175 mcg PO DAILY@0630 [facility] Last Admin: 11/13/17 07:53 Dose: Not Given Lidocaine (Lidoderm) 1 ea TD DAILY [facility] Last Admin: 11/13/17 08:38 Dose: 1 ea Morphine Sulfate (Morphine) 6 mg IVP Q6H PRN PRN Reason: Pain, severe (8-10) Last Admin: 11/10/17 17:29 Dose: 6 mg Morphine Sulfate (Morphine) 4 mg IVP Q6 PRN PRN Reason: Pain, moderate (4-7) Last Admin: 11/13/17 06:04 Dose: 4 mg Pantoprazole Sodium (Protonix Ec Tab) 20 mg PO DAILY [facility] Last Admin: 11/13/17 08:35 Dose: Not Given Sennosides (Senokot Tab) 25.8 mg PO HS [facility] Last Admin: 11/12/17 21:10 Dose: 25.8 mg Sitagliptin Phosphate (Januvia) 50 mg PO BID [facility] - Labs Labs: 11/13/17 05:30 11/13/17 05:30 PT 12.4 Seconds (9.8-13.1) 11/13/17 05:30 INR 1.1 (0.9-1.2) 11/13/17 05:30 APTT 29.4 Seconds (25.6-37.1) 11/10/17 00:35 - Constitutional Appears: Non-toxic, No Acute Distress - Head Exam Head Exam: ATRAUMATIC, NORMOCEPHALIC - Eye Exam Eye Exam: EOMI, Normal appearance, PERRL - ENT Exam ENT Exam: Mucous Membranes Moist, Normal Oropharynx - Respiratory Exam Respiratory Exam: Clear to Ausculation Bilateral, NORMAL BREATHING PATTERN - Cardiovascular Exam Cardiovascular Exam: RRR, +S1 - GI/Abdominal Exam GI & Abdominal Exam: Soft, Normal Bowel Sounds. absent: Tenderness, Mass - Extremities Exam Extremities Exam: Normal Capillary Refill, Normal Inspection - Back Exam Back Exam: absent: CVA tenderness (L), CVA tenderness (R) - Neurological Exam Neurological Exam: Alert, Awake - Psychiatric Exam Psychiatric exam: Normal Affect, Normal Mood - Skin Skin Exam: Dry, Warm Assessment and Plan - Assessment and Plan (Free Text) Plan: 66 years old male with hx of DM II, CKD, DVT and 2 years of Chronic back pain with Sciatica, only ambulating with a wheel chair and assistance. He comes because of worsening of the left lower extremity pain, originating from the left groin and down the thighs to below the knee. Bladder scan in the ED showed no urine in bladder. IN ER BUN / Cr found to be 101/3.8 K 5.3 AG 26. Patient had not been eating and drinking very well.He was admitted in telemetry for acute on chronic renal failure with hyperkalemia and back pain with sciatica Started on IVF with improvement of renal function Cr 2.7. US abdomen showed right kidney lower pole solid mass 4.9 cm Thoracic spine imaging showed :Severe compression deformity of L3 vertebra with diffuse sclerosis suspicious for sclerotic metastasis. Questionable sclerotic focus in the L5 vertebra. MRI renal and thoracic lumbar spine ordered but patient unable to tolerate due to severe pain . Arrangements made for MRI with sedation on Monday. IR consult for possible Kyphoplasty and L3 biopsy 1. Acute on chronic renal failure Improving with IVF Cr trending down from 3.8-- 2.2 Renal US showed solid mass 4.9 cm to lower pole of right kidney suspicious for malignancy. MRI renal ordered without contrast to better evaluate the mass. Can not give contrast due to renal failure Hold valsartan and HCTZ Nephro consult appreciated f/u urine lytes , plasma and urine protein electrophoresis , PTH, Vitamin D 2. Intractable back pain and radiculopathy no urinary retention or saddle anesthesia Xray of spine showed severe compression fracture L 3 and lesion of L5 Will perform MRI Thoracic and lumbar spine to better evaluate if the fracture is acute or chronic . If fracture is acute patient may benefit from kyphoplasty . IR consulted for possible kyphoplasty and L3 biopsy Follow up SPEP , UPEP, urine cytology , PSA Will need biopsy of lumbar spine lesion by IR Hem/on consult with Dr. coughlin appreciated Continue pain management , Flexeril, lidoderm patch Continue PT/OT 3. Hyperkalemia-- resolved given D50 and Insulin with sodium bicarbonate and calcium Gluconate given in Ed discontinued valsartan/ HCTZ and Demadex Follow electrolytes 4. DM with Hypoglycemia Hgb A1c 8.6 Hold Metformin and lemir diabetic diet Accuchecks and insulin coverage 5. Anemia of chronic disease and iron deficiency Hgb 9.2 start Venofer IV 6.Hypothyroidism continue Synthroid TSH - 2 ( controlled) 7. Hx of Prostate Cancer post Brcytherapy urology consulted f/u PSA 8. DVT prophylaxis Hold Eliquis for possible procedure Start Heparin SQ
--- NOTE | 2017-11-13 15:51 | CP.PCM.PN ---
Subjective - Date & Time of Evaluation Date of Evaluation: 11/13/17 Time of Evaluation: 15:30 - Subjective Subjective: Not clear as to why the consult was called, pain management vs sedation for MRI. Apparently patient couldn't tolerate MRI due to pain when lying flat. He' s feeling better now. He's currently on morphine 6mg IV PRN as well as Neurontin 100mg q8h. Patient has known prostate cancer, but last treatment was 2 years ago. He states that the current pain started 4 months ago and he's needed to walk with a walker since then. According to chart, more recently he's been wheelchair- bound. The pain is in the left lower lumbar spine, and then he also feels radiating pain in the left lateral calf below the knee. He denies pain in the left thigh or on the right side. X-ray was of poor quality but demonstrated L3 compression fracture with severe decrease in height, as well as L5 involvement. Objective - Vital Signs/Intake and Output Vital Signs (last 24 hours): Temp Pulse Resp BP Pulse Ox 98.5 F 77 18 123/71 97 11/13/17 09:00 11/13/17 09:00 11/13/17 09:00 11/13/17 09:00 11/13/17 14:17 Intake and Output: 11/13/17 11/13/17 06:59 18:59 Intake Total 200 Output Total 1800 Balance -1600 - Medications Medications: Current Medications Amlodipine Besylate (Norvasc) 5 mg PO DAILY [facility] Last Admin: 11/12/17 09:33 Dose: 5 mg Atorvastatin Calcium (Lipitor) 20 mg PO HS [facility] Last Admin: 11/12/17 21:10 Dose: 20 mg Cyclobenzaprine HCl (Flexeril) 5 mg PO TID PRN PRN Reason: Muscle spasm Last Admin: 11/11/17 14:35 Dose: 5 mg Gabapentin (Neurontin) 100 mg PO TID [facility] Last Admin: 11/13/17 12:56 Dose: Not Given Heparin Sodium (Porcine) (Heparin) 5,000 units SC Q12 [facility] PRN Reason: Protocol Last Admin: 11/13/17 08:35 Dose: Not Given Iron Sucrose 100 mg/ Sodium (Chloride) 105 mls @ 105 mls/hr IVPB DAILY [facility] Last Admin: 11/12/17 09:33 Dose: 105 mls/hr Sodium Chloride (Sodium Chloride 0.45%) 1,000 mls @ 75 mls/hr IV .[id number] [facility] Stop: 11/14/17 13:09 Insulin Detemir (Levemir) 20 units SC BID [facility] Last Admin: 11/11/17 09:50 Dose: Not Given Insulin Human Lispro (Humalog) 0 units SC ACHS [facility] PRN Reason: Protocol Last Admin: 11/13/17 12:56 Dose: Not Given Labetalol HCl (Trandate) 200 mg PO BID [facility] Last Admin: 11/10/17 17:29 Dose: Not Given Levothyroxine Sodium (Synthroid) 175 mcg PO DAILY@0630 [facility] Last Admin: 11/13/17 07:53 Dose: Not Given Lidocaine (Lidoderm) 1 ea TD DAILY [facility] Last Admin: 11/13/17 08:38 Dose: 1 ea Morphine Sulfate (Morphine) 6 mg IVP Q6H [facility] PRN Reason: Pain, severe (8-10) Last Admin: 11/10/17 17:29 Dose: 6 mg Morphine Sulfate (Morphine) 4 mg IVP Q6 PRN PRN Reason: Pain, moderate (4-7) Last Admin: 11/13/17 06:04 Dose: 4 mg Pantoprazole Sodium (Protonix Ec Tab) 20 mg PO DAILY [facility] Last Admin: 11/12/17 09:33 Dose: 20 mg Sennosides (Senokot Tab) 25.8 mg PO HS [facility] Last Admin: 11/12/17 21:10 Dose: 25.8 mg Sitagliptin Phosphate (Januvia) 50 mg PO BID [facility] - Labs Labs: 11/13/17 05:30 11/13/17 05:30 PT 12.4 Seconds (9.8-13.1) 11/13/17 05:30 INR 1.1 (0.9-1.2) 11/13/17 05:30 APTT 29.4 Seconds (25.6-37.1) 11/10/17 00:35 - Extremities Exam Additional comments: NT to palpation. - Back Exam Back Exam: paraspinal tenderness, vertebral tenderness - Neurological Exam Neuro motor strength exam: Left Lower Extremity: 4 (due to pain), Right Lower Extremity: 4 (due to pain) Assessment and Plan (1) Bone lesion Assessment & Plan: 66 yo man w/ metastatic prostate cancer, with spinal involvement and compression fracture. He's awaiting lumbar MRI under sedation in AM. - would increase Neurontin to 300mg q8h - consider adding Oxycontin 10mg q12h and titrate as tolerated - further recommendation will be dependent upon MRI findings Status: Acute
--- NOTE | 2017-11-13 19:22 | CP.PCM.PN ---
Subjective - Date & Time of Evaluation Date of Evaluation: 11/13/17 Time of Evaluation: 19:00 - Subjective Subjective: Denies any sob, nausea/vomiting; leg pain improved; Objective - Vital Signs/Intake and Output Vital Signs (last 24 hours): Temp Pulse Resp BP Pulse Ox 99 F 74 20 124/67 99 11/13/17 16:08 11/13/17 17:02 11/13/17 16:08 11/13/17 17:02 11/13/17 16:08 Intake and Output: 11/13/17 11/14/17 18:59 06:59 Intake Total 200 Output Total 1800 1200 Balance -1600 -1200 - Medications Medications: Current Medications Amlodipine Besylate (Norvasc) 5 mg PO DAILY [facility] Last Admin: 11/13/17 17:02 Dose: 5 mg Atorvastatin Calcium (Lipitor) 20 mg PO HS [facility] Last Admin: 11/12/17 21:10 Dose: 20 mg Cyclobenzaprine HCl (Flexeril) 5 mg PO TID PRN PRN Reason: Muscle spasm Last Admin: 11/11/17 14:35 Dose: 5 mg Gabapentin (Neurontin) 100 mg PO TID [facility] Last Admin: 11/13/17 17:01 Dose: 100 mg Heparin Sodium (Porcine) (Heparin) 5,000 units SC Q12 [facility] PRN Reason: Protocol Last Admin: 11/13/17 08:35 Dose: Not Given Iron Sucrose 100 mg/ Sodium (Chloride) 105 mls @ 105 mls/hr IVPB DAILY [facility] Last Admin: 11/12/17 09:33 Dose: 105 mls/hr Sodium Chloride (Sodium Chloride 0.45%) 1,000 mls @ 75 mls/hr IV .[id number] [facility] Stop: 11/14/17 13:09 Insulin Detemir (Levemir) 20 units SC BID [facility] Last Admin: 11/11/17 09:50 Dose: Not Given Insulin Human Lispro (Humalog) 0 units SC ACHS [facility] PRN Reason: Protocol Last Admin: 11/13/17 17:01 Dose: 1 u Labetalol HCl (Trandate) 200 mg PO BID [facility] Last Admin: 11/10/17 17:29 Dose: Not Given Levothyroxine Sodium (Synthroid) 175 mcg PO DAILY@0630 [facility] Last Admin: 11/13/17 07:53 Dose: Not Given Lidocaine (Lidoderm) 1 ea TD DAILY [facility] Last Admin: 11/13/17 08:38 Dose: 1 ea Morphine Sulfate (Morphine) 6 mg IVP Q6H PRN PRN Reason: Pain, severe (8-10) Last Admin: 11/10/17 17:29 Dose: 6 mg Morphine Sulfate (Morphine) 4 mg IVP Q6 PRN PRN Reason: Pain, moderate (4-7) Last Admin: 11/13/17 06:04 Dose: 4 mg Pantoprazole Sodium (Protonix Ec Tab) 20 mg PO DAILY [facility] Last Admin: 11/13/17 17:02 Dose: 20 mg Sennosides (Senokot Tab) 25.8 mg PO HS [facility] Last Admin: 11/12/17 21:10 Dose: 25.8 mg Sitagliptin Phosphate (Januvia) 50 mg PO BID [facility] - Labs Labs: 11/13/17 05:30 11/13/17 05:30 PT 12.4 Seconds (9.8-13.1) 11/13/17 05:30 INR 1.1 (0.9-1.2) 11/13/17 05:30 APTT 29.4 Seconds (25.6-37.1) 11/10/17 00:35 - Constitutional Appears: Non-toxic, No Acute Distress - Eye Exam Eye Exam: absent: Scleral icterus - ENT Exam ENT Exam: Mucous Membranes Moist - Respiratory Exam Respiratory Exam: Clear to Ausculation Bilateral. absent: Respiratory Distress - Cardiovascular Exam Cardiovascular Exam: RRR, +S1, +S2. absent: Gallop - GI/Abdominal Exam GI & Abdominal Exam: Soft. absent: Distended, Tenderness Assessment and Plan (1) Acute on chronic renal failure Assessment & Plan: Thought to be pre-renal etiology with improvement on IVF; however, nursing staff reporting increased UO which may be indicative of post-ATN phase; -continue to hold diuretics and ARB for now; -starting 1/2NS at 75 cc/hr to match 2/3 UO; Status: Acute (2) Anemia Assessment & Plan: Due to chronic disease/renal failure and some component of iron deficiency; on IV iron; will likely need EPO but in setting of possible malignancy, should discuss with heme first; Status: Chronic (3) Renal mass Assessment & Plan: Awaiting further imaging and biopsy; Status: Acute (4) Hypertension Assessment & Plan: BP controlled on amlodipine only, continue to hold other meds; Status: Acute
--- NOTE | 2017-11-13 21:26 | PN ---
DATE: 11/13/2017 TIME OF FOLLOWUP: 07:05 p.m. SUBJECTIVE: The patient is resting comfortably in bed with Amos catheter draining jenifer urine well at this hour. The patient is scheduled for abdominal MRI under sedation tomorrow for evaluation of his renal mass. His PSA level is also still pending at this time. PHYSICAL EXAMINATION: ABDOMEN: His abdomen is soft, nondistended and nontender. No CVA tenderness and no suprapubic tenderness. LABORATORY DATA: His chem profile today on 11/13/2017 showed a BUN of 40 and creatinine of 1.9 with a GFR of 36. Calcium 9.2, phosphorus 2.5 and magnesium 2.9. DIAGNOSTIC IMPRESSION: For this patient regarding Urology is evaluation of possible renal mass and history of prostate cancer status post treatment more than 10 years ago. PLAN: Check the MRI and check the PSA level. Jesus Guzman MD
[2017-11-13 23:00] LABS: TOTAL PSA >1420.0 ng/mL (< or = 4.0)
[2017-11-13] MEDS: Sodium Chloride 0.45% 1,000 ML IV SCH (23:59)
[2017-11-14] MEDS: Sodium Chloride 0.45% 1,000 ML IV SCH (05:10)
[2017-11-14] MEDS: Levothyroxine 175 MCG TAB PO SCH (05:35)
[2017-11-14 06:24] LABS: CALCIUM 9.2 mg/dL (8.4-10.2)
[2017-11-14] MEDS ORDERED: Propofol 10 mg/ml Inj (20 ML) ONE (07:45)
[2017-11-14] MEDS ORDERED: Midazolam 2 MG/2 ML VIAL ONE ×2 (07:45→08:34)
[2017-11-14] MEDS: Insulin Lispro (humaLOG) 100 Units/ml Inj SC SCH ×4 (08:53→22:31)
[2017-11-14] MEDS: Pantoprazole 20 mg EC Tab PO SCH ×2 (08:53→12:25)
[2017-11-14] MEDS: Lidocaine 5% Patch TD SCH ×2 (08:53→12:26)
[2017-11-14] MEDS ORDERED: Metoprolol 1 mg/ml Inj IVP ONE (09:01)
[2017-11-14] MEDS ORDERED: Sodium Chloride 0.9% 250 ML IV ONE (10:10)
[2017-11-14] MEDS: Lactated Ringer's 500 ML IV SCH ×3 (10:20→23:43)
--- NOTE | 2017-11-14 12:13 | CP.PCM.PN ---
Subjective - Date & Time of Evaluation Date of Evaluation: 11/14/17 Time of Evaluation: 12:12 - Subjective Subjective: DOING WELL THIS MORNING MRI WITH SEDATION ALSO MRI ABD IF PT CAN TOLERATE, CAN NOT DO THIS UNDER SED 2/2 HD stable NAD Objective - Vital Signs/Intake and Output Vital Signs (last 24 hours): Temp Pulse Resp BP Pulse Ox 98.6 F 93 H 20 134/73 96 11/14/17 11:05 11/14/17 11:05 11/14/17 11:05 11/14/17 11:05 11/14/17 11:05 Intake and Output: 11/14/17 11/14/17 06:59 18:59 Intake Total 662 100 Output Total 2150 300 Balance -1488 -200 - Medications Medications: Current Medications Amlodipine Besylate (Norvasc) [address] [facility] Last Admin: 11/14/17 08:53 Dose: Not Given Atorvastatin Calcium (Lipitor) [address] [facility] Last Admin: 11/13/17 21:13 Dose: 20 mg Cyclobenzaprine HCl (Flexeril) 5 mg PO TID PRN PRN Reason: Muscle spasm Last Admin: 11/11/17 14:35 Dose: 5 mg Gabapentin (Neurontin) [address] [facility] Last Admin: 11/14/17 08:53 Dose: Not Given Heparin Sodium (Porcine) (Heparin) 5,[address] [facility] PRN Reason: Protocol Last Admin: 11/14/17 08:53 Dose: Not Given Iron Sucrose 100 mg/ Sodium (Chloride) 105 mls @ 105 mls/hr IVPB DAILY [facility] Last Admin: 11/14/17 08:54 Dose: Not Given Sodium Chloride (Sodium Chloride 0.45%) 1,000 mls @ 75 mls/hr IV .[id number] [facility] Stop: 11/14/17 13:09 Last Admin: 11/14/17 05:10 Dose: Not Given Lactated Ringer's (Lactated Ringer's 500ml) 500 mls @ 75 mls/hr IV .Q6H40M [facility] Last Admin: 11/14/17 10:20 Dose: 100 mls Insulin Detemir (Levemir) [address] [facility] Last Admin: 11/11/17 09:50 Dose: Not Given Insulin Human Lispro (Humalog) [address] [facility] PRN Reason: Protocol Last Admin: 11/14/17 08:53 Dose: Not Given Labetalol HCl (Trandate) [address] [facility] Last Admin: 11/10/17 17:29 Dose: Not Given Levothyroxine Sodium (Synthroid) 175 mcg PO DAILY@0630 [facility] Last Admin: 11/14/17 05:35 Dose: 175 mcg Lidocaine (Lidoderm) [address] [facility] Last Admin: 11/14/17 08:53 Dose: Not Given Morphine Sulfate (Morphine) 6 mg IVP Q6H PRN PRN Reason: Pain, severe (8-10) Last Admin: 11/14/17 02:25 Dose: 6 mg Morphine Sulfate (Morphine) 4 mg IVP Q6 PRN PRN Reason: Pain, moderate (4-7) Last Admin: 11/13/17 20:37 Dose: 4 mg Pantoprazole Sodium (Protonix Ec Tab) [address] [facility] Last Admin: 11/14/17 08:53 Dose: Not Given Sennosides (Senokot Tab) 25.[address] [facility] Last Admin: 11/13/17 21:13 Dose: 25.8 mg Sitagliptin Phosphate (Januvia) [address] [facility] - Labs Labs: 11/13/17 05:30 11/14/17 05:35 PT 12.4 Seconds (9.8-13.1) 11/13/17 05:30 INR 1.1 (0.9-1.2) 11/13/17 05:30 APTT 29.4 Seconds (25.6-37.1) 11/10/17 00:35 - Constitutional Appears: Non-toxic, No Acute Distress - Head Exam Head Exam: ATRAUMATIC, NORMOCEPHALIC - Eye Exam Eye Exam: EOMI, Normal appearance Pupil Exam: NORMAL ACCOMODATION - ENT Exam ENT Exam: Mucous Membranes Moist, Normal Oropharynx - Respiratory Exam Respiratory Exam: Clear to Ausculation Bilateral, NORMAL BREATHING PATTERN - Cardiovascular Exam Cardiovascular Exam: RRR, +S1, +S2 - GI/Abdominal Exam GI & Abdominal Exam: Soft, Normal Bowel Sounds - Extremities Exam Extremities Exam: Normal Capillary Refill, Normal Inspection - Back Exam Back Exam: absent: CVA tenderness (L), CVA tenderness (R) - Neurological Exam Neurological Exam: Alert, Awake - Psychiatric Exam Psychiatric exam: Normal Affect, Normal Mood - Skin Skin Exam: Dry, Warm Assessment and Plan - Assessment and Plan (Free Text) Plan: 66 years old male with hx of DM II, CKD, DVT and 2 years of Chronic back pain with Sciatica, only ambulating with a wheel chair and assistance. He comes because of worsening of the left lower extremity pain, originating from the left groin and down the thighs to below the knee. Bladder scan in the ED showed no urine in bladder. IN ER BUN / Cr found to be 101/3.8 K 5.3 AG 26. Patient had not been eating and drinking very well.He was admitted in telemetry for acute on chronic renal failure with hyperkalemia and back pain with sciatica Started on IVF with improvement of renal function Cr 2.7. US abdomen showed right kidney lower pole solid mass 4.9 cm Thoracic spine imaging showed :Severe compression deformity of L3 vertebra with diffuse sclerosis suspicious for sclerotic metastasis. Questionable sclerotic focus in the L5 vertebra. MRI renal and thoracic lumbar spine ordered but patient unable to tolerate due to severe pain . Arrangements made for MRI with sedation on Monday. IR consult for possible Kyphoplasty and L3 biopsy Was unable to get MRI yesterday due to scheduling difficulties, MRI with sedation today. Bx pending MR results. Difficult to obtain MRI abd given sedation, will attempt 1. Acute on chronic renal failure Improving with IVF Cr trending down 1.7 Renal US showed solid mass 4.9 cm to lower pole of right kidney suspicious for malignancy. MRI renal ordered without contrast to better evaluate the mass as well. Can not give contrast due to renal failure Hold valsartan and HCTZ Nephro consult appreciated f/u urine lytes , plasma and urine protein electrophoresis , PTH, Vitamin D 2. Intractable back pain and radiculopathy no urinary retention or saddle anesthesia Xray of spine showed severe compression fracture L 3 and lesion of L5 Will perform MRI Thoracic and lumbar spine to better evaluate if the fracture is acute or chronic . If fracture is acute patient may benefit from kyphoplasty . IR consulted for possible kyphoplasty and L3 biopsy Follow up SPEP, UPEP, urine cytology, PSA Will need biopsy of lumbar spine lesion by IR Hem/on consult with Dr. coughlin appreciated Continue pain management , Flexeril, lidoderm patch Continue PT/OT 3. Hyperkalemia-- resolved given D50 and Insulin with sodium bicarbonate and calcium Gluconate given in Ed discontinued valsartan/ HCTZ and Demadex Follow electrolytes 4. DM with Hypoglycemia Hgb A1c 8.6 Hold Metformin and lemir diabetic diet Accuchecks and insulin coverage 5. Anemia of chronic disease and iron deficiency Hgb 9.2 start Venofer IV 6.Hypothyroidism continue Synthroid TSH - 2 ( controlled) 7. Hx of Prostate Cancer
[2017-11-14 12:40] LABS: ALBUMIN (PEP) 3.3 g/dL (3.8-4.8); ALPHA-1-GLOBULIN (PEP) 0.3 g/dL (0.2-0.3)
[2017-11-15] MEDS: Levothyroxine 175 MCG TAB PO SCH (05:37)
--- NOTE | 2017-11-15 06:43 | CP.PCM.PN ---
Subjective - Date & Time of Evaluation Date of Evaluation: 11/14/17 Time of Evaluation: 13:15 - Subjective Subjective: Denies sob, nausea/vomiting; Objective - Vital Signs/Intake and Output Vital Signs (last 24 hours): Temp Pulse Resp BP Pulse Ox 99.1 F 74 19 131/69 99 11/15/17 01:00 11/15/17 01:00 11/15/17 01:00 11/15/17 01:00 11/15/17 01:00 Intake and Output: 11/14/17 11/15/17 18:59 06:59 Intake Total 100 550 Output Total 1050 1100 Balance -950 -550 - Medications Medications: Current Medications Amlodipine Besylate (Norvasc) 5 mg PO DAILY [facility] Last Admin: 11/14/17 12:25 Dose: 5 mg Atorvastatin Calcium (Lipitor) 20 mg PO HS [facility] Last Admin: 11/14/17 22:31 Dose: 20 mg Cyclobenzaprine HCl (Flexeril) 5 mg PO TID PRN PRN Reason: Muscle spasm Last Admin: 11/11/17 14:35 Dose: 5 mg Gabapentin (Neurontin) 100 mg PO TID [facility] Last Admin: 11/14/17 16:16 Dose: 100 mg Heparin Sodium (Porcine) (Heparin) 5,000 units SC Q12 [facility] PRN Reason: Protocol Last Admin: 11/14/17 22:30 Dose: 5,000 units Iron Sucrose 100 mg/ Sodium (Chloride) 105 mls @ 105 mls/hr IVPB DAILY [facility] Last Admin: 11/14/17 12:25 Dose: 105 mls/hr Lactated Ringer's (Lactated Ringer's 500ml) 500 mls @ 75 mls/hr IV .Q6H40M [facility] Last Admin: 11/14/17 23:43 Dose: Not Given Insulin Detemir (Levemir) 20 units SC BID [facility] Last Admin: 11/11/17 09:50 Dose: Not Given Insulin Human Lispro (Humalog) 0 units SC ACHS [facility] PRN Reason: Protocol Last Admin: 11/14/17 22:31 Dose: Not Given Labetalol HCl (Trandate) 200 mg PO BID [facility] Last Admin: 11/10/17 17:29 Dose: Not Given Levothyroxine Sodium (Synthroid) 175 mcg PO DAILY@0630 [facility] Last Admin: 11/15/17 05:37 Dose: 175 mcg Lidocaine (Lidoderm) 1 ea TD DAILY [facility] Last Admin: 11/14/17 12:26 Dose: 1 ea Morphine Sulfate (Morphine) 6 mg IVP Q6H PRN PRN Reason: Pain, severe (8-10) Last Admin: 11/14/17 02:25 Dose: 6 mg Morphine Sulfate (Morphine) 4 mg IVP Q6 PRN PRN Reason: Pain, moderate (4-7) Last Admin: 11/13/17 20:37 Dose: 4 mg Pantoprazole Sodium (Protonix Ec Tab) 20 mg PO DAILY [facility] Last Admin: 11/14/17 12:25 Dose: 20 mg Sennosides (Senokot Tab) 25.8 mg PO HS [facility] Last Admin: 11/14/17 22:31 Dose: 25.8 mg Sitagliptin Phosphate (Januvia) 50 mg PO BID [facility] - Labs Labs: 11/13/17 05:30 11/14/17 05:35 PT 12.4 Seconds (9.8-13.1) 11/13/17 05:30 INR 1.1 (0.9-1.2) 11/13/17 05:30 APTT 29.4 Seconds (25.6-37.1) 11/10/17 00:35 - Constitutional Appears: Non-toxic, No Acute Distress - Eye Exam Eye Exam: absent: Scleral icterus - ENT Exam ENT Exam: Mucous Membranes Moist - Respiratory Exam Respiratory Exam: Clear to Ausculation Bilateral. absent: Respiratory Distress - Cardiovascular Exam Cardiovascular Exam: RRR, +S1, +S2 - GI/Abdominal Exam GI & Abdominal Exam: Soft. absent: Distended, Tenderness - Exam Exam: absent: Bladder Distension - Extremities Exam Additional comments: no significant leg edema; - Neurological Exam Neurological Exam: Alert, Awake - Psychiatric Exam Psychiatric exam: absent: Agitated Assessment and Plan (1) Acute on chronic renal failure Assessment & Plan: BOO resolved; stable volume and electrolyte status; no evidence of myeloma on workup thus far; still awaiting 24 hr urine study result -continue to hold ARB and diuretics; Status: Acute (2) Anemia Assessment & Plan: On IV iron, monitor; Status: Chronic (3) Renal mass Assessment & Plan: Awaiting MRI and biopsy, will f/u; Status: Acute (4) Hypertension Assessment & Plan: BP controlled on just amlodipine, continue to hold other agents; Status: Acute
[2017-11-15] MEDS: Pantoprazole 20 mg EC Tab PO SCH (08:47)
[2017-11-15] MEDS: Insulin Lispro (humaLOG) 100 Units/ml Inj SC SCH ×4 (08:47→22:32)
[2017-11-15] MEDS: Lactated Ringer's 500 ML IV SCH ×3 (08:48→21:27)
[2017-11-15] MEDS: Lidocaine 5% Patch TD SCH (08:50)
--- NOTE | 2017-11-15 11:55 | CP.PCM.PN ---
Subjective - Date & Time of Evaluation Date of Evaluation: 11/15/17 Time of Evaluation: 12:00 - Subjective Subjective: patient was seen and examined bedside. Feeling better . Pain is better controlled Hemodynamically stable, afebrile No acute issues overnight had MRI spine yesterday under sedation Objective - Vital Signs/Intake and Output Vital Signs (last 24 hours): Temp Pulse Resp BP Pulse Ox 98.6 F 73 20 134/71 98 11/15/17 08:19 11/15/17 08:46 11/15/17 08:19 11/15/17 08:46 11/15/17 08:19 Intake and Output: 11/15/17 11/15/17 06:59 18:59 Intake Total 550 Output Total 1100 Balance -550 - Medications Medications: Current Medications Amlodipine Besylate (Norvasc) 5 mg PO DAILY [facility] Last Admin: 11/15/17 08:46 Dose: 5 mg Atorvastatin Calcium (Lipitor) 20 mg PO HS [facility] Last Admin: 11/14/17 22:31 Dose: 20 mg Cyclobenzaprine HCl (Flexeril) 5 mg PO TID PRN PRN Reason: Muscle spasm Last Admin: 11/11/17 14:35 Dose: 5 mg Gabapentin (Neurontin) 100 mg PO TID [facility] Last Admin: 11/15/17 08:46 Dose: 100 mg Heparin Sodium (Porcine) (Heparin) 5,000 units SC Q12 [facility] PRN Reason: Protocol Last Admin: 11/15/17 08:47 Dose: 5,000 units Iron Sucrose 100 mg/ Sodium (Chloride) 105 mls @ 105 mls/hr IVPB DAILY [facility] Last Admin: 11/14/17 12:25 Dose: 105 mls/hr Lactated Ringer's (Lactated Ringer's 500ml) 500 mls @ 75 mls/hr IV .Q6H40M [facility] Last Admin: 11/15/17 08:48 Dose: Not Given Insulin Detemir (Levemir) 20 units SC BID [facility] Last Admin: 11/11/17 09:50 Dose: Not Given Insulin Human Lispro (Humalog) 0 units SC ACHS [facility] PRN Reason: Protocol Last Admin: 11/15/17 08:47 Dose: 1 u Labetalol HCl (Trandate) 200 mg PO BID [facility] Last Admin: 11/10/17 17:29 Dose: Not Given Levothyroxine Sodium (Synthroid) 175 mcg PO DAILY@0630 [facility] Last Admin: 11/15/17 05:37 Dose: 175 mcg Lidocaine (Lidoderm) 1 ea TD DAILY [facility] Last Admin: 11/15/17 08:50 Dose: 1 ea Morphine Sulfate (Morphine) 6 mg IVP Q6H PRN PRN Reason: Pain, severe (8-10) Last Admin: 11/14/17 02:25 Dose: 6 mg Morphine Sulfate (Morphine) 4 mg IVP Q6 PRN PRN Reason: Pain, moderate (4-7) Last Admin: 11/13/17 20:37 Dose: 4 mg Pantoprazole Sodium (Protonix Ec Tab) 20 mg PO DAILY [facility] Last Admin: 11/15/17 08:47 Dose: 20 mg Sennosides (Senokot Tab) 25.8 mg PO HS [facility] Last Admin: 11/14/17 22:31 Dose: 25.8 mg Sitagliptin Phosphate (Januvia) 50 mg PO BID [facility] - Labs Labs: 11/13/17 05:30 11/14/17 05:35 PT 12.4 Seconds (9.8-13.1) 11/13/17 05:30 INR 1.1 (0.9-1.2) 11/13/17 05:30 APTT 29.4 Seconds (25.6-37.1) 11/10/17 00:35 - Constitutional Appears: Non-toxic, No Acute Distress - Head Exam Head Exam: ATRAUMATIC, NORMAL INSPECTION, NORMOCEPHALIC - Eye Exam Eye Exam: EOMI, Normal appearance, PERRL Pupil Exam: NORMAL ACCOMODATION - ENT Exam ENT Exam: Mucous Membranes Moist, Normal Exam - Neck Exam Neck Exam: Full ROM, Normal Inspection - Respiratory Exam Respiratory Exam: Clear to Ausculation Bilateral, NORMAL BREATHING PATTERN. absent: Rales, Wheezes, Respiratory Distress - Cardiovascular Exam Cardiovascular Exam: REGULAR RHYTHM, RRR, +S1, +S2. absent: JVD - GI/Abdominal Exam GI & Abdominal Exam: Soft, Normal Bowel Sounds. absent: Distended, Guarding, Tenderness, Rebound - Rectal Exam Rectal Exam: Deferred - Extremities Exam Extremities Exam: Full ROM, Normal Capillary Refill, Normal Inspection. absent : Calf Tenderness, Pedal Edema, Tenderness - Back Exam Back Exam: NORMAL INSPECTION. absent: tenderness - Neurological Exam Neurological Exam: Alert, Awake, CN II-XII Intact, Oriented x3 - Psychiatric Exam Psychiatric exam: Normal Affect - Skin Skin Exam: Dry, Normal Color, Warm Assessment and Plan - Assessment and Plan (Free Text) Assessment: 66 years old male with hx of DM II, CKD, DVT and 2 years of Chronic back pain with Sciatica, only ambulating with a wheel chair and assistance. He comes because of worsening of the left lower extremity pain, originating from the left groin and down the thighs to below the knee. Bladder scan in the ED showed no urine in bladder. IN ER BUN / Cr found to be 101/3.8 K 5.3 AG 26. Patient had not been eating and drinking very well.He was admitted in telemetry for acute on chronic renal failure with hyperkalemia and back pain with sciatica Started on IVF with improvement of renal function Cr 2.7. US abdomen showed right kidney lower pole solid mass 4.9 cm Thoracic spine imaging showed :Severe compression deformity of L3 vertebra with diffuse sclerosis suspicious for sclerotic metastasis. Questionable sclerotic focus in the L5 vertebra. MRI renal and thoracic lumbar spine ordered but patient unable to tolerate due to severe pain . Arrangements made for MRI with sedation that was performed yesterday . pain management also consulted for help with pain control At present pain is better controlled Discussed with radiology : MRI spine shows multiple sclerotic and lytic lesions of the spine with retroperitoneal lymphadenopathy consistent with metastatic disease IR consulted for possible Kyphoplasty and L3 biopsy 1. Acute on chronic renal failure Improving with IVF Cr trending down 1.7 Renal US showed solid mass 4.9 cm to lower pole of right kidney suspicious for malignancy. MRI renal ordered without contrast to better evaluate the mass as well. Can not give contrast due to renal failure Hold valsartan and HCTZ Nephro consult appreciated Plasma and urine electrophoresis not elevated PSA highly elevated 1500 suggesting recurrence of prostatic CA . Renal mass suggestive of renal CA 2. Intractable back pain and radiculopathy no urinary retention or saddle anesthesia Xray of spine showed severe compression fracture L 3 and lesion of L5 MRI Thoracic and lumbar spine with sedation performed to better evaluate if the fracture is acute or chronic . Discussed with Dr. Cervantes. Patient has diffuse sclerotic and lytic lesions of the spine compatible with metastatic disease UPEP , SPEP - not elevated PSA 1500 Discussed with oncology . Most likely patient has recurrence of prostate CA and has renal CA. Will need to discuss with urologist about recommendations and nephrectomy since improves survival rate patient will most likely need to be strated on hormonal therapy for prostate Ca and possible chemo Pain at present is better controlled Will discuss with IR if L3 severe fracture is acute and if patient can benefit from kyphoplasty Continue pain management , Flexeril, lidoderm patch , morphine and gabapentin Continue PT/OT 3. Hyperkalemia-- resolved given D50 and Insulin with sodium bicarbonate and calcium Gluconate given in Ed discontinued valsartan/ HCTZ and Demadex Follow electrolytes 4. DM with Hypoglycemia Hgb A1c 8.6 Hold Metformin ,levemir and januvia diabetic diet Accuchecks and insulin coverage 5. Anemia of chronic disease and iron deficiency Hgb 9.2 on Venofer IV 6.Hypothyroidism continue Synthroid TSH - 2 ( controlled) 7. Hx of Prostate Cancer-- most likely has recurrence of prostate CA history of Brachytherapy 2 yeras ago PSA 1500 8. DVT prophylaxis Eliquis on hold started Heparin for now
--- NOTE | 2017-11-15 22:08 | CP.PCM.PN ---
Subjective - Date & Time of Evaluation Date of Evaluation: 11/15/17 Time of Evaluation: 12:15 - Subjective Subjective: Feeling better, pain well controlled Objective - Vital Signs/Intake and Output Vital Signs (last 24 hours): Temp Pulse Resp BP Pulse Ox 97.7 F 83 19 122/69 97 11/15/17 16:12 11/15/17 16:12 11/15/17 16:12 11/15/17 16:12 11/15/17 16:12 Intake and Output: 11/15/17 11/16/17 18:59 06:59 Intake Total 110 Output Total 1000 Balance -890 - Medications Medications: Current Medications Amlodipine Besylate (Norvasc) 5 mg PO DAILY [facility] Last Admin: 11/15/17 08:46 Dose: 5 mg Atorvastatin Calcium (Lipitor) 20 mg PO HS [facility] Last Admin: 11/15/17 21:27 Dose: 20 mg Cyclobenzaprine HCl (Flexeril) 5 mg PO TID PRN PRN Reason: Muscle spasm Last Admin: 11/11/17 14:35 Dose: 5 mg Gabapentin (Neurontin) 100 mg PO TID [facility] Last Admin: 11/15/17 16:39 Dose: 100 mg Heparin Sodium (Porcine) (Heparin) 5,000 units SC Q12 [facility] PRN Reason: Protocol Last Admin: 11/15/17 21:26 Dose: 5,000 units Iron Sucrose 100 mg/ Sodium (Chloride) 105 mls @ 105 mls/hr IVPB DAILY [facility] Last Admin: 11/15/17 12:15 Dose: 105 mls/hr Lactated Ringer's (Lactated Ringer's 500ml) 500 mls @ 75 mls/hr IV .Q6H40M [facility] Last Admin: 11/15/17 21:27 Dose: Not Given Insulin Detemir (Levemir) 20 units SC BID [facility] Last Admin: 11/11/17 09:50 Dose: Not Given Insulin Human Lispro (Humalog) 0 units SC ACHS [facility] PRN Reason: Protocol Last Admin: 11/15/17 16:38 Dose: 3 u Labetalol HCl (Trandate) 200 mg PO BID [facility] Last Admin: 11/10/17 17:29 Dose: Not Given Levothyroxine Sodium (Synthroid) 175 mcg PO DAILY@0630 [facility] Last Admin: 11/15/17 05:37 Dose: 175 mcg Lidocaine (Lidoderm) 1 ea TD DAILY [facility] Last Admin: 11/15/17 08:50 Dose: 1 ea Morphine Sulfate (Morphine) 6 mg IVP Q6H PRN PRN Reason: Pain, severe (8-10) Last Admin: 11/14/17 02:25 Dose: 6 mg Morphine Sulfate (Morphine) 4 mg IVP Q6 PRN PRN Reason: Pain, moderate (4-7) Last Admin: 11/13/17 20:37 Dose: 4 mg Pantoprazole Sodium (Protonix Ec Tab) 20 mg PO DAILY [facility] Last Admin: 11/15/17 08:47 Dose: 20 mg Sennosides (Senokot Tab) 25.8 mg PO HS [facility] Last Admin: 11/15/17 21:27 Dose: 25.8 mg Sitagliptin Phosphate (Januvia) 50 mg PO BID [facility] - Labs Labs: 11/13/17 05:30 11/14/17 05:35 PT 12.4 Seconds (9.8-13.1) 11/13/17 05:30 INR 1.1 (0.9-1.2) 11/13/17 05:30 APTT 29.4 Seconds (25.6-37.1) 11/10/17 00:35 - Head Exam Head Exam: ATRAUMATIC - Eye Exam Eye Exam: Normal appearance - ENT Exam ENT Exam: Mucous Membranes Dry - Respiratory Exam Respiratory Exam: NORMAL BREATHING PATTERN - Cardiovascular Exam Cardiovascular Exam: +S1, +S2 - GI/Abdominal Exam GI & Abdominal Exam: Normal Bowel Sounds Assessment and Plan (1) Prostate cancer Assessment & Plan: hx of prostate cancer treated with brachytherapy diffuse bone metastasis with elevated PSA; recurrence of prostate cancer would benefit from androgen deprivation therapy Status: Acute (2) Renal mass Assessment & Plan: suspicious for renal cell carcinoma bone lesions noted; prostate cancer mets likely but also may have mets from renal cell carcinoma urology evaluation for nephrectomy consideration Status: Acute (3) Bone lesion Assessment & Plan: likely prostate mets ? renal cell metastasis Status: Acute (4) Anemia Assessment & Plan: chronic disease Status: Chronic
--- NOTE | 2017-11-15 22:38 | CP.PCM.PN ---
Subjective - Date & Time of Evaluation Date of Evaluation: 11/15/17 Time of Evaluation: 13:00 - Subjective Subjective: Denies shortness of breath, nausea/vomiting; not ambulating; Objective - Vital Signs/Intake and Output Vital Signs (last 24 hours): Temp Pulse Resp BP Pulse Ox 97.7 F 83 19 122/69 97 11/15/17 16:12 11/15/17 16:12 11/15/17 16:12 11/15/17 16:12 11/15/17 16:12 Intake and Output: 11/15/17 11/16/17 18:59 06:59 Intake Total 110 Output Total 1000 Balance -890 - Medications Medications: Current Medications Amlodipine Besylate (Norvasc) 5 mg PO DAILY [facility] Last Admin: 11/15/17 08:46 Dose: 5 mg Atorvastatin Calcium (Lipitor) 20 mg PO HS [facility] Last Admin: 11/15/17 21:27 Dose: 20 mg Cyclobenzaprine HCl (Flexeril) 5 mg PO TID PRN PRN Reason: Muscle spasm Last Admin: 11/11/17 14:35 Dose: 5 mg Gabapentin (Neurontin) 100 mg PO TID [facility] Last Admin: 11/15/17 16:39 Dose: 100 mg Heparin Sodium (Porcine) (Heparin) 5,000 units SC Q12 [facility] PRN Reason: Protocol Last Admin: 11/15/17 21:26 Dose: 5,000 units Iron Sucrose 100 mg/ Sodium (Chloride) 105 mls @ 105 mls/hr IVPB DAILY [facility] Last Admin: 11/15/17 12:15 Dose: 105 mls/hr Lactated Ringer's (Lactated Ringer's 500ml) 500 mls @ 75 mls/hr IV .Q6H40M [facility] Last Admin: 11/15/17 21:27 Dose: Not Given Insulin Detemir (Levemir) 20 units SC BID [facility] Last Admin: 11/11/17 09:50 Dose: Not Given Insulin Human Lispro (Humalog) 0 units SC ACHS [facility] PRN Reason: Protocol Last Admin: 11/15/17 22:32 Dose: Not Given Labetalol HCl (Trandate) 200 mg PO BID [facility] Last Admin: 11/10/17 17:29 Dose: Not Given Levothyroxine Sodium (Synthroid) 175 mcg PO DAILY@0630 [facility] Last Admin: 11/15/17 05:37 Dose: 175 mcg Lidocaine (Lidoderm) 1 ea TD DAILY [facility] Last Admin: 11/15/17 08:50 Dose: 1 ea Morphine Sulfate (Morphine) 6 mg IVP Q6H PRN PRN Reason: Pain, severe (8-10) Last Admin: 11/14/17 02:25 Dose: 6 mg Morphine Sulfate (Morphine) 4 mg IVP Q6 PRN PRN Reason: Pain, moderate (4-7) Last Admin: 11/15/17 22:08 Dose: 4 mg Pantoprazole Sodium (Protonix Ec Tab) 20 mg PO DAILY [facility] Last Admin: 11/15/17 08:47 Dose: 20 mg Sennosides (Senokot Tab) 25.8 mg PO HS [facility] Last Admin: 11/15/17 21:27 Dose: 25.8 mg Sitagliptin Phosphate (Januvia) 50 mg PO BID [facility] - Labs Labs: 11/13/17 05:30 11/14/17 05:35 PT 12.4 Seconds (9.8-13.1) 11/13/17 05:30 INR 1.1 (0.9-1.2) 11/13/17 05:30 APTT 29.4 Seconds (25.6-37.1) 11/10/17 00:35 - Constitutional Appears: Non-toxic, No Acute Distress - Eye Exam Eye Exam: absent: Scleral icterus - ENT Exam ENT Exam: Mucous Membranes Moist - Respiratory Exam Respiratory Exam: Clear to Ausculation Bilateral. absent: Respiratory Distress - Cardiovascular Exam Cardiovascular Exam: RRR, +S1, +S2 - GI/Abdominal Exam GI & Abdominal Exam: Soft. absent: Distended, Tenderness - Exam Exam: absent: Bladder Distension - Extremities Exam Additional comments: minimal lower leg edema; - Neurological Exam Neurological Exam: Alert, Awake - Psychiatric Exam Psychiatric exam: absent: Agitated - Skin Skin Exam: Warm. absent: Cyanosis Assessment and Plan (1) Acute on chronic renal failure Assessment & Plan: BOO resolved; renal function relatively stable; continue to avoid nephrotoxic agents; continue to hold diuretics/ARB; Status: Acute (2) Anemia Assessment & Plan: Hgb stable but below goal for CKD (10-11 g); discussed with heme today, holding off on EPO due to concern for renal cell CA and possible mets from it; Status: Chronic (3) Renal mass Assessment & Plan: Patient unable to tolerate MRI abd; can consider CT w/ and w/o IV contrast while giving copious IVF for prophylaxis against contrast nephropathy (risk of renal cell CA mets likely more than temporary BOO from contrast); Status: Acute (4) Hypertension Assessment & Plan: BP controlled on just amlodipine, continue same; Status: Chronic
[2017-11-16] MEDS: Lactated Ringer's 500 ML IV SCH ×3 (02:25→15:42)
[2017-11-16] MEDS: Levothyroxine 175 MCG TAB PO SCH (06:28)
[2017-11-16 06:50] LABS: HEMOGLOBIN 9.1 g/dL (12.0-18.0); MEAN CELL VOLUME 89.3 fl (80.0-94.0); MEAN CORPUSCULAR HEMOGLOBIN 29.4 pg (27.0-31.0); MEAN CORPUSCULAR HGB CONC 32.9 g/dL (33.0-37.0); RBC 3.1 Mil/uL (4.40-5.90); RED CELL DISTRIBUTION WIDTH 15.1 % (11.5-14.5); WHITE BLOOD COUNT 6.6 K/uL (4.8-10.8)
[2017-11-16 06:59] LABS: CALCIUM 9.1 mg/dL (8.4-10.2)
[2017-11-16] MEDS: Insulin Lispro (humaLOG) 100 Units/ml Inj SC SCH ×5 (08:33→22:27)
[2017-11-16] MEDS: Lidocaine 5% Patch TD SCH (08:34)
[2017-11-16] MEDS: Pantoprazole 20 mg EC Tab PO SCH (08:35)
--- NOTE | 2017-11-16 10:11 | MRI ---
PROCEDURE: MR LUMBAR SPINE WITHOUT CONTRAST HISTORY: COMPARISON: Thoracic spine MRI without contrast also performed 11/14/2017 and lumbar radiographs 11/10/2017. TECHNIQUE: Multiecho multiplanar sequences were performed through the lumbar spine without the use of intravenous contrast. FINDINGS: There straightening of the lumbar curvature without spondylolisthesis. However, there is a gross fracture of the L3 vertebral body with inhomogeneous signal characteristics internally by well-preserved endplates. The signal changes within into body are heterogeneous and given abnormal signal in the thoracic spine as well as all the lumbar vertebral bodies the largely the upper lumbar spine, the pattern is reflective of a pathological compression fracture. This results in displaced of the posterior cortex into the output into the anterior epidural space resulting in a high-grade central canal stenosis posterior to the mid L3 level, moderate at L3-4 and mild at L2-3. Degenerative changes at the facet joints as well as limited disc bulging contributes to stenoses at the intervertebral disc levels. Otherwise, the conus medullaris appears normal terminating at the L1 vertebral body level with gross Nolberto abnormal retroperitoneal prevertebral soft tissue changes suggestive of lymphadenopathy in the retroperitoneum which particularly prominent at the L2-3 level extending to surround the inferior abdominal aorta. Follow-up abdomen pelvis CT is recommended for greater characterization and definition of these findings. T12-L1: No disc herniation, spinal canal stenosis or neural foraminal narrowing. L1-2: No disc herniation, spinal canal stenosis or neural foraminal narrowing. L2-3: See above. L3-4: See above. L4-5: No disc herniation appreciated. A moderate central stenosis results at L4-5 due to generalized disc osteophyte complex combined with advanced facet joint arthropathy with moderate bilateral neural foraminal stenosis also appreciated on a degenerative basis. L5-S1: No disc herniation. No significant central stenosis. Facet arthropathy is appreciate bilaterally and appears moderate severity but without neural foraminal stenosis at either side. OTHER FINDINGS: None. IMPRESSION: Gross L3 compression fracture and heterogeneous Marrow pattern suggestive of pathological origin resulting in severe central stenosis at the L3 level, moderate L3-4 and mild at L2-3 as discussed above. There is likely diffuse metastasis throughout the lumbar spine. Further characterization by PET-CT or whole-body nuclear bone scan can be performed for global skeletal evaluation. Extensive retroperitoneal lymphadenopathy is identified. Consider follow-up abdomen pelvis CT with contrast for added detail.
--- NOTE | 2017-11-16 10:12 | MRI ---
PROCEDURE: MR THORACIC SPINE WITHOUT CONTRAST HISTORY: COMPARISON: None available. TECHNIQUE: Multiecho multiplanar sequences were performed through the thoracic spine without the use of intravenous contrast. FINDINGS: ALIGNMENT: Normal thoracic kyphosis is appreciated. No definitive fracture or spondylolisthesis is identified. Motion artifacts degrade the quality of imaging however. There are multifocal abnormal areas of increased STIR signal identified throughout the mid to inferior thoracic spine vertebral bodies corresponding to diminished T1 signal intensity. No vertebral body or posterior element deformity is appreciated however there is relatively extensive retroperitoneal lymphadenopathy appreciated in the upper abdomen anterior to the inferior thoracic spine and anterior lumbar spine. Marrow signal changes are felt to be a reflection of metastatic disease on a widespread basis throughout the thoracic spine. A sclerotic lesion is identified at the T11 vertebral body. VERTEBRA: As above. MARROW: As above. PARASPINAL SOFT TISSUES: As above. CORD: Unremarkable thoracic cord. No volume loss, signal abnormality or syrinx. DISCS: Central canal appears widely patent with exception of the T9-10 disc interspace level where a small sub disc central disc herniation overlies generalized disc bulging abutting the ventral cord without deformity and likely impinging ventral nerve roots. Limited multilevel inferior and mid thoracic intervertebral discs are identified bulging at the ventral epidural space without significant stenosis resulting. No suspicious neural foraminal narrowing. OTHER FINDINGS: None. IMPRESSION: Findings most compatible multilevel thoracic metastases throughout the vertebral bodies as discussed above primarily at the mid to inferior levels in a mixed pattern. Extensive restrained lymphadenopathy is appreciated in the upper abdomen anterior to the inferior thoracic and upper lumbar levels as discussed above. Small central disc herniation at T 910 results in limited central canal stenosis and impinges ventral nerve roots likely, without cord deformity. .
--- NOTE | 2017-11-16 14:05 | CP.PCM.PN ---
Subjective - Date & Time of Evaluation Date of Evaluation: 11/16/17 Time of Evaluation: 11:30 - Subjective Subjective: Patient seen and examined bedside. Feeling better. Pain is controlled.no acute issues overnight. Findings of all tests including renal US, PSA , MRI thoracic / lumbar spine explained to patient Informed of potential diagnosis of metastatic prostate Cancer and diagnosis of renal carcinoma. Had long discussion with patient and also called and got information from Patient explains that he had diagnosis of prostate cancer 10 years ago and received radiation therapy at that time. 2 years ago at [facility] [place] diagnosed with prostate CA with spine metastasis,diagnosed with biopsy. He received chemotherapy IV and injections/ week in [place] [facility] with an oncologist. He does not remember the name of his oncologist and will ask his to find it .He also received radiation therapy in [place]. Objective - Vital Signs/Intake and Output Vital Signs (last 24 hours): Temp Pulse Resp BP Pulse Ox 98 F 70 20 126/68 97 11/16/17 08:21 11/16/17 08:35 11/16/17 08:21 11/16/17 08:35 11/16/17 08:21 Intake and Output: 11/16/17 11/16/17 06:59 18:59 Intake Total 500 Output Total 850 Balance -350 - Medications Medications: Current Medications Amlodipine Besylate (Norvasc) 5 mg PO DAILY [facility] Last Admin: 11/16/17 08:35 Dose: 5 mg Atorvastatin Calcium (Lipitor) 20 mg PO HS [facility] Last Admin: 11/15/17 21:27 Dose: 20 mg Cyclobenzaprine HCl (Flexeril) 5 mg PO TID PRN PRN Reason: Muscle spasm Last Admin: 11/11/17 14:35 Dose: 5 mg Gabapentin (Neurontin) 100 mg PO TID [facility] Last Admin: 11/16/17 12:07 Dose: 100 mg Heparin Sodium (Porcine) (Heparin) 5,000 units SC Q12 [facility] PRN Reason: Protocol Last Admin: 11/16/17 08:34 Dose: 5,000 units Iron Sucrose 100 mg/ Sodium (Chloride) 105 mls @ 105 mls/hr IVPB DAILY [facility] Last Admin: 11/16/17 10:44 Dose: 105 mls/hr Lactated Ringer's (Lactated Ringer's 500ml) 500 mls @ 75 mls/hr IV .Q6H40M [facility] Last Admin: 11/16/17 10:46 Dose: Not Given Insulin Detemir (Levemir) 20 units SC BID [facility] Last Admin: 11/11/17 09:50 Dose: Not Given Insulin Human Lispro (Humalog) 0 units SC ACHS [facility] PRN Reason: Protocol Last Admin: 11/16/17 12:06 Dose: 2 u Labetalol HCl (Trandate) 200 mg PO BID [facility] Last Admin: 11/10/17 17:29 Dose: Not Given Levothyroxine Sodium (Synthroid) 175 mcg PO DAILY@0630 [facility] Last Admin: 11/16/17 06:28 Dose: 175 mcg Lidocaine (Lidoderm) 1 ea TD DAILY [facility] Last Admin: 11/16/17 08:34 Dose: 1 ea Morphine Sulfate (Morphine) 6 mg IVP Q6H PRN PRN Reason: Pain, severe (8-10) Last Admin: 11/14/17 02:25 Dose: 6 mg Morphine Sulfate (Morphine) 4 mg IVP Q6 PRN PRN Reason: Pain, moderate (4-7) Last Admin: 11/15/17 22:08 Dose: 4 mg Pantoprazole Sodium (Protonix Ec Tab) 20 mg PO DAILY [facility] Last Admin: 11/16/17 08:35 Dose: 20 mg Sennosides (Senokot Tab) 25.8 mg PO HS [facility] Last Admin: 11/15/17 21:27 Dose: 25.8 mg Sitagliptin Phosphate (Januvia) 50 mg PO BID [facility] - Labs Labs: 11/16/17 06:00 11/16/17 06:00 PT 12.4 Seconds (9.8-13.1) 11/13/17 05:30 INR 1.1 (0.9-1.2) 11/13/17 05:30 APTT 29.4 Seconds (25.6-37.1) 11/10/17 00:35 - Constitutional Appears: Non-toxic, No Acute Distress - Head Exam Head Exam: ATRAUMATIC, NORMAL INSPECTION, NORMOCEPHALIC - Eye Exam Eye Exam: EOMI, Normal appearance, PERRL Pupil Exam: NORMAL ACCOMODATION - ENT Exam ENT Exam: Mucous Membranes Moist, Normal Exam - Neck Exam Neck Exam: Full ROM, Normal Inspection - Respiratory Exam Respiratory Exam: Clear to Ausculation Bilateral, NORMAL BREATHING PATTERN. absent: Rales, Rhonchi, Wheezes - Cardiovascular Exam Cardiovascular Exam: REGULAR RHYTHM, RRR, +S1, +S2. absent: JVD - GI/Abdominal Exam GI & Abdominal Exam: Soft, Normal Bowel Sounds. absent: Distended, Guarding, Tenderness, Rebound - Rectal Exam Rectal Exam: Deferred - Extremities Exam Extremities Exam: Full ROM, Normal Capillary Refill, Normal Inspection. absent : Calf Tenderness, Pedal Edema - Back Exam Back Exam: NORMAL INSPECTION - Neurological Exam Neurological Exam: Alert, Awake, CN II-XII Intact, Oriented x3 - Psychiatric Exam Psychiatric exam: Normal Affect, Normal Mood - Skin Skin Exam: Dry, Intact, Normal Color, Warm Assessment and Plan - Assessment and Plan (Free Text) Assessment: 66 years old male with hx of DM II, CKD, DVT and 2 years of Chronic back pain with Sciatica, only ambulating with a wheel chair and assistance, came in because of worsening of the left lower extremity pain, originating from the left groin and down the thighs to below the knee. Bladder scan in the ED showed no urine in bladder. IN ER BUN / Cr found to be 101/3.8 K 5.3 AG 26. Patient had not been eating and drinking very well.He was admitted in telemetry for acute on chronic renal failure with hyperkalemia and back pain with sciatica Started on IVF with improvement of renal function Cr 1.9 US abdomen showed right kidney lower pole solid mass 4.9 cm Thoracic spine imaging showed :Severe compression deformity of L3 vertebra with diffuse sclerosis suspicious for sclerotic metastasis. Questionable sclerotic focus in the L5 vertebra. MRI renal and thoracic lumbar spine ordered but patient unable to tolerate due to severe pain . Arrangements made for MRI with sedation that was performed . Pain management also consulted for help with pain control At present pain is better controlled Discussed with radiology : Multilevel thoracic metastases throughout the vertebral bodies as discussed above primarily at the mid to inferior levels in a mixed pattern. Extensive restrained lymphadenopathy is appreciated in the upper abdomen anterior to the inferior thoracic and upper lumbar levels as discussed above. Small central disc herniation at T 910 results in limited central canal stenosis and impinges ventral nerve roots likely, without cord deformity. . Gross L3 compression fracture and heterogeneous Marrow pattern suggestive of pathological origin resulting in severe central stenosis at the L3 level, moderate L3-4 and mild at L2-3 as discussed above. There is likely diffuse metastasis throughout the lumbar spine. Further characterization by PET-CT or whole-body nuclear bone scan can be performed for global skeletal evaluation. Extensive retroperitoneal lymphadenopathy is identified. Consider follow-up abdomen pelvis CT with contrast for added detail. Findings of all tests including renal US, PSA , MRI thoracic / lumbar spine explained to patient Informed of potential diagnosis of metastatic prostate Cancer and diagnosis of renal carcinoma. Had long discussion with patient and also called and got information from Patient explains that he had diagnosis of prostate cancer 10 years ago and received radiation therapy at that time. 2 years ago at [facility] [place] was diagnosed with prostate CA with spine metastasis,diagnosed with biopsy. He received chemotherapy IV and injections/ week in [place] with an oncologist. He does not remember the name of his oncologist and will ask his to find it .He also received radiation therapy in [place]. 1. Acute on chronic renal failure Improving with IVF Cr trending down 1.9 Renal US showed solid mass 4.9 cm to lower pole of right kidney suspicious for malignancy. MRI renal ordered without contrast to better evaluate the mass as well but patient could not tolerate . Can not give contrast due to renal failure Hold valsartan and HCTZ Nephro consult appreciated Plasma and urine electrophoresis not elevated PSA highly elevated 1500 suggesting recurrence of prostatic CA . Renal mass suggestive of renal CA 2. Intractable back pain and radiculopathy secondary to metastatic disease of the spine no urinary retention or saddle anesthesia Xray of spine showed severe compression fracture L 3 and lesion of L5 MRI showed Multilevel thoracic metastases throughout the vertebral bodies as discussed above primarily at the mid to inferior levels in a mixed pattern. Extensive restrained lymphadenopathy is appreciated in the upper abdomen anterior to the inferior thoracic and upper lumbar levels as discussed above. Small central disc herniation at T 910 results in limited central canal stenosis and impinges ventral nerve roots likely, without cord deformity. . Gross L3 compression fracture and heterogeneous Marrow pattern suggestive of pathological origin resulting in severe central stenosis at the L3 level, moderate L3-4 and mild at L2-3 as discussed above. There is likely diffuse metastasis throughout the lumbar spine. Further characterization by PET-CT or whole-body nuclear bone scan can be performed for global skeletal evaluation. Extensive retroperitoneal lymphadenopathy is identified. Consider follow-up abdomen pelvis CT with contrast for added detail. Discussed with IR Dr. Parham .based on MRI dfindings patient is not a candidate for kyphoplasty. Discussed possibility of renal mass biopsy and radiologist recommended Ct abdomen and pelvis w/o contrast to evaluate for any lytic lesions to the bones that could potentially be related to renal Ca for biopsy . Ordered CT abdomen and pelvis UPEP , SPEP - not elevated PSA 1500 Discussed with oncology . Most likely patient has recurrence of prostate CA and has renal CA. After discussing again with patient and got informed that he has already metastatic prostate CA diagnosis( diagnosed 2 years ago at [facility] [place] ) and has received Chemo and radiation with an oncologist Will need to discuss with urologist about recommendations for nephrectomy since it improves survival rate patient will most likely need to be started on hormonal therapy for prostate Ca and possible chemo. Will refer to [facility] oncology clinic and his oncologist Pain at present is better controlled d/c Amos catheter today Will discuss with IR if L3 severe fracture is acute and if patient can benefit from kyphoplasty Continue pain management , Flexeril, lidoderm patch , morphine and gabapentin Continue PT/OT. Patient ambulates with wheelchair and walker 3. Hyperkalemia-- resolved given D50 and Insulin with sodium bicarbonate and calcium Gluconate given in Ed discontinued valsartan/ HCTZ and Demadex Follow electrolytes 4. DM with Hypoglycemia Hgb A1c 8.6 Hold Metformin ,levemir and januvia diabetic diet Accuchecks and insulin coverage 5. Anemia of chronic disease and iron deficiency Hgb 9.2 on Venofer IV 6.Hypothyroidism continue Synthroid TSH - 2 ( controlled) 7. Hx of Prostate Cancer-- most likely has recurrence of prostate CA history of Brachytherapy and chemo PSA 1500 8. DVT prophylaxis Eliquis on hold started Heparin for now
--- NOTE | 2017-11-16 16:17 | CT ---
PROCEDURE: CT Abdomen and Pelvis without intravenous contrast HISTORY: r/o lytic mets to the spine COMPARISON: None. TECHNIQUE: Without contrast.. Contrast Dose: 0 Radiation dose: Total exam DLP = Total exam DLP = 1085.64 mGy-cm. This CT exam was performed using one or more of the following dose reduction techniques: Automated exposure control, adjustment of the mA and/or kV according to patient size, and/or use of iterative reconstruction technique. FINDINGS: LOWER THORAX: Multiple small parenchymal and pleural-based nodules at both lung bases, including the lower lobes, lingula and right middle lobe. All 10 mm or less. Strongly suspicious for metastatic disease. Small left pleural effusion. Minimal left lower lobe compressive atelectasis. Trace right pleural effusion. Bilateral gynecomastia. LIVER: Unremarkable. No gross lesion or ductal dilatation. GALLBLADDER AND BILE DUCTS: Unremarkable. PANCREAS: Unremarkable. No gross lesion or ductal dilatation. SPLEEN: Unremarkable. ADRENALS: Unremarkable. No mass. KIDNEYS AND URETERS: Unremarkable. No hydronephrosis. No solid mass. VASCULATURE: Unremarkable. No aortic aneurysm. BOWEL: Unremarkable. No obstruction. No gross mural thickening. APPENDIX: Not identified PERITONEUM: Unremarkable. No free fluid. No free air. LYMPH NODES: Bulky retroperitoneal lymphadenopathy, some nodes with central necrosis. Left-sided pelvic lymphadenopathy. BLADDER: Poorly distended. Thick wall likely due to underdistention. Small amount of gas likely from catheterization. REPRODUCTIVE: Radiation seed implants in prostate bed. BONES: Sclerotic metastases to multiple thoracic and lumbar vertebrae. Severe compression deformity of the L3 vertebral body with bony retropulsion. Please see report of MRI lumbar spine of 11/14/2018. Sclerotic metastasis to both iliac bones. Sclerotic metastasis to left 7th rib. No lytic metastases are identified. . OTHER FINDINGS: None. IMPRESSION: Multiple osseous metastases. Severe compression deformity of the L3 vertebral body. Bulky retroperitoneal and pelvic lymphadenopathy. Multiple pulmonary parenchymal and pleural based nodules suspicious for metastatic disease. Bilateral gynecomastia. Pleural effusion, left greater than right. Radiation seed implants in prostate bed.
--- NOTE | 2017-11-16 22:24 | CP.PCM.PN ---
Subjective - Date & Time of Evaluation Date of Evaluation: 11/16/17 Time of Evaluation: 12:45 - Subjective Subjective: Patient denies shortness of breath; no nausea/vomiting; Objective - Vital Signs/Intake and Output Vital Signs (last 24 hours): Temp Pulse Resp BP Pulse Ox 98.4 F 79 20 139/75 97 11/16/17 16:21 11/16/17 16:21 11/16/17 16:21 11/16/17 16:21 11/16/17 16:21 Intake and Output: 11/16/17 11/17/17 18:59 06:59 Output Total 700 Balance -700 - Medications Medications: Current Medications Amlodipine Besylate (Norvasc) 5 mg PO DAILY [facility] Last Admin: 11/16/17 08:35 Dose: 5 mg Atorvastatin Calcium (Lipitor) 20 mg PO HS [facility] Last Admin: 11/16/17 21:13 Dose: 20 mg Cyclobenzaprine HCl (Flexeril) 5 mg PO TID PRN PRN Reason: Muscle spasm Last Admin: 11/11/17 14:35 Dose: 5 mg Gabapentin (Neurontin) 100 mg PO TID [facility] Last Admin: 11/16/17 17:10 Dose: 100 mg Heparin Sodium (Porcine) (Heparin) 5,000 units SC Q12 [facility] PRN Reason: Protocol Last Admin: 11/16/17 21:10 Dose: 5,000 units Iron Sucrose 100 mg/ Sodium (Chloride) 105 mls @ 105 mls/hr IVPB DAILY [facility] Last Admin: 11/16/17 10:44 Dose: 105 mls/hr Lactated Ringer's (Lactated Ringer's 500ml) 500 mls @ 75 mls/hr IV .Q6H40M [facility] Last Admin: 11/16/17 15:42 Dose: Not Given Insulin Detemir (Levemir) 20 units SC BID [facility] Last Admin: 11/11/17 09:50 Dose: Not Given Insulin Human Lispro (Humalog) 0 units SC ACHS [facility] PRN Reason: Protocol Last Admin: 11/16/17 17:09 Dose: 2 u Labetalol HCl (Trandate) 200 mg PO BID [facility] Last Admin: 11/10/17 17:29 Dose: Not Given Levothyroxine Sodium (Synthroid) 175 mcg PO DAILY@0630 [facility] Last Admin: 11/16/17 06:28 Dose: 175 mcg Lidocaine (Lidoderm) 1 ea TD DAILY [facility] Last Admin: 11/16/17 08:34 Dose: 1 ea Morphine Sulfate (Morphine) 6 mg IVP Q6H PRN PRN Reason: Pain, severe (8-10) Last Admin: 11/14/17 02:25 Dose: 6 mg Morphine Sulfate (Morphine) 4 mg IVP Q6 PRN PRN Reason: Pain, moderate (4-7) Last Admin: 11/16/17 22:11 Dose: 4 mg Pantoprazole Sodium (Protonix Ec Tab) 20 mg PO DAILY [facility] Last Admin: 11/16/17 08:35 Dose: 20 mg Sennosides (Senokot Tab) 25.8 mg PO HS [facility] Last Admin: 11/16/17 21:11 Dose: 25.8 mg Sitagliptin Phosphate (Januvia) 50 mg PO BID [facility] - Labs Labs: 11/16/17 06:00 11/16/17 06:00 PT 12.4 Seconds (9.8-13.1) 11/13/17 05:30 INR 1.1 (0.9-1.2) 11/13/17 05:30 APTT 29.4 Seconds (25.6-37.1) 11/10/17 00:35 - Constitutional Appears: Non-toxic, No Acute Distress - ENT Exam ENT Exam: Mucous Membranes Moist - Respiratory Exam Respiratory Exam: Clear to Ausculation Bilateral. absent: Respiratory Distress - Cardiovascular Exam Cardiovascular Exam: RRR, +S1, +S2 - GI/Abdominal Exam GI & Abdominal Exam: Soft. absent: Distended, Tenderness - Exam Exam: absent: Bladder Distension - Extremities Exam Additional comments: no leg edema; - Neurological Exam Neurological Exam: Alert, Awake - Psychiatric Exam Psychiatric exam: absent: Agitated - Skin Skin Exam: Warm. absent: Cyanosis Assessment and Plan (1) Acute on chronic renal failure Assessment & Plan: Renal function back to baseline; continue to hold diuretics; can restart ARB at low dose for anti-proteinuric effect; Status: Acute (2) Anemia Assessment & Plan: Hgb stable but below goal; holding off on EPO due to possible renal cell CA; Status: Chronic (3) Renal mass Assessment & Plan: Discussed with hospitalist at length; patient was unable to tolerate MRI for better visualization; question of whether to pursue biopsy of mass; however, we do not have services to undertake nephrectomy/resection here at this time; furthermore, patient has his own oncologist (doesn't recall name, will obtain from family); best option may be to have him f/u at [facility] as outpatient; Status: Acute (4) Hypertension Assessment & Plan: BP relatively controlled on amlodipine only; will restart valsartan at lower dose (80 mg daily); Status: Chronic
[2017-11-17] MEDS: Lactated Ringer's 500 ML IV SCH (02:21)
[2017-11-17] MEDS: Insulin Lispro (humaLOG) 100 Units/ml Inj SC SCH ×2 (07:30→12:39)
[2017-11-17 08:35] VITALS: BP 140/75; PULSE 68; RESP 18; TEMP 97.6; O2SAT 98
[2017-11-17] MEDS: Levothyroxine 175 MCG TAB PO SCH (08:43)
[2017-11-17] MEDS: Pantoprazole 20 mg EC Tab PO SCH (09:16)
[2017-11-17] MEDS: Lidocaine 5% Patch TD SCH (09:17)
--- NOTE | 2017-11-17 10:55 | CP.PCM.PN ---
Subjective - Date & Time of Evaluation Date of Evaluation: 11/17/17 Time of Evaluation: 10:51 - Subjective Subjective: Patient reports urine with stop/go flowing, mccormack discontinued; Objective - Vital Signs/Intake and Output Vital Signs (last 24 hours): Temp Pulse Resp BP Pulse Ox 97.6 F 68 18 140/75 98 11/17/17 08:35 11/17/17 08:35 11/17/17 08:35 11/17/17 08:35 11/17/17 08:35 - Medications Medications: Current Medications Amlodipine Besylate (Norvasc) 5 mg PO DAILY [facility] Last Admin: 11/16/17 08:35 Dose: 5 mg Atorvastatin Calcium (Lipitor) 20 mg PO HS [facility] Last Admin: 11/16/17 21:13 Dose: 20 mg Cyclobenzaprine HCl (Flexeril) 5 mg PO TID PRN PRN Reason: Muscle spasm Last Admin: 11/11/17 14:35 Dose: 5 mg Gabapentin (Neurontin) 100 mg PO TID [facility] Last Admin: 11/17/17 09:16 Dose: 100 mg Heparin Sodium (Porcine) (Heparin) 5,000 units SC Q12 [facility] PRN Reason: Protocol Last Admin: 11/16/17 21:10 Dose: 5,000 units Iron Sucrose 100 mg/ Sodium (Chloride) 105 mls @ 105 mls/hr IVPB DAILY [facility] Last Admin: 11/17/17 09:17 Dose: 105 mls/hr Lactated Ringer's (Lactated Ringer's 500ml) 500 mls @ 75 mls/hr IV .Q6H40M [facility] Last Admin: 11/17/17 02:21 Dose: Not Given Insulin Detemir (Levemir) 20 units SC BID [facility] Last Admin: 11/11/17 09:50 Dose: Not Given Insulin Human Lispro (Humalog) 0 units SC ACHS [facility] PRN Reason: Protocol Last Admin: 11/16/17 22:27 Dose: Not Given Labetalol HCl (Trandate) 200 mg PO BID [facility] Last Admin: 11/10/17 17:29 Dose: Not Given Levothyroxine Sodium (Synthroid) 175 mcg PO DAILY@0630 [facility] Last Admin: 11/17/17 08:43 Dose: 175 mcg Lidocaine (Lidoderm) 1 ea TD DAILY [facility] Last Admin: 11/17/17 09:17 Dose: 1 ea Morphine Sulfate (Morphine) 6 mg IVP Q6H PRN PRN Reason: Pain, severe (8-10) Last Admin: 11/14/17 02:25 Dose: 6 mg Morphine Sulfate (Morphine) 4 mg IVP Q6 PRN PRN Reason: Pain, moderate (4-7) Last Admin: 11/16/17 22:11 Dose: 4 mg Pantoprazole Sodium (Protonix Ec Tab) 20 mg PO DAILY [facility] Last Admin: 11/17/17 09:16 Dose: 20 mg Sennosides (Senokot Tab) 25.8 mg PO HS [facility] Last Admin: 11/16/17 21:11 Dose: 25.8 mg Sitagliptin Phosphate (Januvia) 50 mg PO DAILY [facility] Tamsulosin HCl (Flomax) 0.4 mg PO DAILY [facility] Valsartan (Diovan) 80 mg PO DAILY [facility] Last Admin: 11/17/17 09:16 Dose: 80 mg - Labs Labs: 11/16/17 06:00 11/16/17 06:00 PT 12.4 Seconds (9.8-13.1) 11/13/17 05:30 INR 1.1 (0.9-1.2) 11/13/17 05:30 APTT 29.4 Seconds (25.6-37.1) 11/10/17 00:35 - Constitutional Appears: Non-toxic, No Acute Distress - Eye Exam Eye Exam: absent: Scleral icterus - ENT Exam ENT Exam: Mucous Membranes Moist - Respiratory Exam Respiratory Exam: Clear to Ausculation Bilateral. absent: Respiratory Distress - Cardiovascular Exam Cardiovascular Exam: RRR, +S1, +S2 - GI/Abdominal Exam GI & Abdominal Exam: Soft. absent: Distended, Tenderness - Exam Exam: absent: Bladder Distension - Extremities Exam Additional comments: no leg edema - Neurological Exam Neurological Exam: Alert - Psychiatric Exam Psychiatric exam: absent: Agitated - Skin Skin Exam: Warm. absent: Cyanosis Assessment and Plan (1) Acute on chronic renal failure Assessment & Plan: BOO resolved; serum creatinine around baseline; has some proteinuria likely due to DM nephropathy; -resuming valsartan at lower dose (80 mg daily); -continue to hold diuretics, can re-assess as outpatient; -starting flomax 0.4 mg daily for prostate symptoms to avoid reflux/obstructive nephropathy; Status: Acute (2) Anemia Assessment & Plan: Hgb stable, f/u as outpatient; Status: Chronic (3) Renal mass Assessment & Plan: Large R renal mass read on renal US but CT from yesterday only showing questionable lower pole mass but bulky lymphadenopathy; in light of likely metastatic prostate CA, needs close outpatient oncology f/u; Status: Acute (4) Hypertension Assessment & Plan: BP controlled; continue amlodipine 5 mg and valsartan 80 mg daily; Status: Chronic
[2017-11-17 14:54] LABS: ALBUMIN 59.1 Relative %; ALPHA-1 GLOBULIN 6.5 Relative %
--- NOTE | 2017-11-17 17:11 | CP.PCM.DIS ---
Provider - Provider Date of Admission: 11/10/17 02:11 Attending physician: Morales Parsons Primary care physician: Shaik Tee HARRISON Consults: Hematology : DR Mckinney Urology : Dr Megan Rodriguez mgt: Dr Garcia Nephrology : Dr Espino Time Spent in preparation of Discharge (in minutes): 40 Diagnosis - Discharge Diagnosis (1) Intractable low back pain Status: Chronic (2) Prostate cancer metastatic to bone Status: Acute (3) Renal mass Status: Suspected (4) Acute on chronic renal failure Status: Acute (5) Hyperkalemia Status: Acute (6) Lactic acidosis Status: Acute (7) Anemia Status: Chronic (8) Lung nodule Status: Acute (9) Hypertension Status: Chronic (10) DM type 2 (diabetes mellitus, type 2) Status: Chronic (11) History of DVT (deep vein thrombosis) Status: Chronic Hospital Course - Lab Results Lab Results: Most Recent Lab Values WBC 6.6 K/uL (4.8-10.8) 11/16/17 06:00 RBC 3.10 Mil/uL (4.40-5.90) L 11/16/17 06:00 Hgb 9.1 g/dL (12.0-18.0) L 11/16/17 06:00 Hct 27.7 % (35.0-51.0) L 11/16/17 06:00 MCV 89.3 fl (80.0-94.0) 11/16/17 06:00 MCH 29.4 pg (27.0-31.0) 11/16/17 06:00 MCHC 32.9 g/dL (33.0-37.0) L 11/16/17 06:00 RDW 15.1 % (11.5-14.5) H 11/16/17 06:00 Plt Count 239 K/uL (130-400) 11/16/17 06:00 MPV 8.3 fl (7.2-11.7) 11/10/17 00:35 Neut % (Auto) 71.1 % (50.0-75.0) 11/10/17 00:35 Lymph % (Auto) 15.5 % (20.0-40.0) L 11/10/17 00:35 [place] % (Auto) 10.5 % (0.0-10.0) H 11/10/17 00:35 Eos % (Auto) 2.1 % (0.0-4.0) 11/10/17 00:35 Baso % (Auto) 0.8 % (0.0-2.0) 11/10/17 00:35 Neut # (Auto) 7.6 K/uL (1.8-7.0) H 11/10/17 00:35 Lymph # (Auto) 1.7 K/uL (1.0-4.3) 11/10/17 00:35 [place] # (Auto) 1.1 K/uL (0.0-0.8) H 11/10/17 00:35 Eos # (Auto) 0.2 K/uL (0.0-0.7) 11/10/17 00:35 Baso # (Auto) 0.1 K/uL (0.0-0.2) 11/10/17 00:35 PT 12.4 Seconds (9.8-13.1) 11/13/17 05:30 INR 1.1 (0.9-1.2) 11/13/17 05:30 APTT 29.4 Seconds (25.6-37.1) 11/10/17 00:35 pO2 16 mm/Hg (30-55) L 11/10/17 00:39 VBG pH 7.57 (7.32-7.43) H 11/10/17 00:39 VBG pCO2 40 mmHg (40-60) 11/10/17 00:39 VBG HCO3 33.5 mmol/L 11/10/17 00:39 VBG Total CO2 37.8 mmol/L (22-28) H 11/10/17 00:39 VBG O2 Sat (Calc) 31.3 % (40-65) L 11/10/17 00:39 VBG Base Excess 13.3 mmol/L (0.0-2.0) H 11/10/17 00:39 VBG Potassium 5.0 mmol/L (3.6-5.2) 11/10/17 00:39 Sodium 137.0 mmol/L (132-148) 11/10/17 00:39 Chloride 98.0 mmol/L (98-107) 11/10/17 00:39 Glucose 222 mg/dL (75-110) H 11/10/17 00:39 Lactate 3.6 mmol/L (0.7-2.1) H 11/10/17 00:39 FiO2 21.0 % 11/10/17 00:39 Sodium 141 mmol/l (132-148) 11/16/17 06:00 Potassium 4.1 MMOL/L (3.6-5.0) 11/16/17 06:00 Chloride 104 mmol/L (98-107) 11/16/17 06:00 Carbon Dioxide 25 mmol/L (22-30) 11/16/17 06:00 Anion Gap 16 (10-20) 11/16/17 06:00 BUN 28 mg/dl (9-20) H 11/16/17 06:00 Creatinine 1.9 mg/dl (0.8-1.5) H 11/16/17 06:00 Est GFR ( Amer) 43 11/16/17 06:00 Est GFR (Non-Af Amer) 36 11/16/17 06:00 POC Glucose (mg/dL) 297 mg/dL (65-110) H 11/17/17 11:09 Random Glucose 213 mg/dL (75-110) H 11/16/17 06:00 Hemoglobin A1c 8.6 % (4.2-6.5) H 11/10/17 07:29 Calcium 9.1 mg/dL (8.4-10.2) 11/16/17 06:00 Phosphorus 2.5 mg/dl (2.5-4.5) 11/10/17 00:35 Magnesium 2.9 MG/DL (1.6-2.3) H 11/10/17 00:35 Iron 35 ug/dL (49-181) L 11/11/17 06:54 TIBC 261 ug/dL (250-450) 11/11/17 06:54 % Saturation 14 % (20-55) L 11/11/17 06:54 Ferritin 146.0 ng/Ml (17.9-464) 11/11/17 06:54 Total Bilirubin 0.4 mg/dl (0.2-1.3) 11/11/17 06:54 AST 41 U/L (17-59) 11/11/17 06:54 ALT 32 U/L (21-72) 11/11/17 06:54 Alkaline Phosphatase 79 U/L (38-126) 11/11/17 06:54 Total Protein 6.6 G/DL (6.3-8.2) 11/11/17 06:54 Total Protein (PEP) 5.8 g/dL (6.1-8.1) L 11/11/17 06:54 Albumin 3.5 g/dL (3.5-5.0) D 11/11/17 06:54 Albumin (PEP) 3.3 g/dL (3.8-4.8) L 11/11/17 06:54 Globulin 3.0 gm/dL (2.2-3.9) 11/11/17 06:54 Albumin/Globulin Ratio 1.44 11/12/17 11:55 [place]-7-Apzvjjbgd 6.5 Relative % 11/12/17 11:55 Aophn-8-Lyqgahlqn 7.2 Relative % 11/12/17 11:55 Beta Globulins 13.6 Relative % 11/12/17 11:55 Qmep-9-Kfberwet 0.4 g/dL (0.4-0.6) 11/11/17 06:54 Pqld-1-Dkvnzobt 0.3 g/dL (0.2-0.5) 11/11/17 06:54 Gamma Globulins 13.6 Relative % 11/12/17 11:55 Abnorm Protein Band 1 TEST NOT PERFORMED 11/11/17 06:54 Abnorm Protein Band 2 TEST NOT PERFORMED 11/11/17 06:54 Abnorm Protein Band 3 TEST NOT PERFORMED 11/11/17 06:54 Free PSA >17.0 ng/mL 11/10/17 14:45 % Free PSA Not calculated % (calc) (>25) 11/10/17 14:45 Total PSA >1420.0 ng/mL (< or = 4.0) H 11/10/17 14:45 25-OH Vitamin D Total 51.7 NG/ML (30.0-100.0) 11/11/17 06:54 TSH 3rd Generation 2.01 mIU/ML (0.46-4.68) 11/10/17 07:29 Calcium (PTH Intact) 8.8 mg/dL (8.6-10.3) 11/11/17 06:54 PTH w/Ion &Tot Calcium 35 pg/mL (14-64) 11/11/17 06:54 Venous Blood Potassium 5.0 mmol/L (3.6-5.2) 11/10/17 00:39 Urine Color Yellow (YELLOW) 11/10/17 16:40 Urine Clarity Cloudy (Clear) 11/10/17 16:40 Urine pH 6.0 (5.0-8.0) 11/10/17 16:40 Ur Specific [place] 1.014 (1.003-1.030) 11/10/17 16:40 Urine Protein 30 mg/dL (NEGATIVE) 11/10/17 16:40 Urine Glucose (UA) Neg mg/dL (Normal) 11/10/17 16:40 Urine Ketones Negative mg/dL (NEGATIVE) 11/10/17 16:40 Urine Blood Negative (NEGATIVE) 11/10/17 16:40 Urine Nitrate Negative (NEGATIVE) 11/10/17 16:40 Urine Bilirubin Negative (NEGATIVE) 11/10/17 16:40 Urine Urobilinogen 0.2-1.0 mg/dL (0.2-1.0) 11/10/17 16:40 Ur Leukocyte Esterase Neg Rebeca/uL (Negative) 11/10/17 16:40 Urine RBC (Auto) 1 /hpf (0-3) 11/10/17 16:40 Urine Microscopic WBC 1 /hpf (0-5) 11/10/17 16:40 Ur Squamous Epith Cells < 1 /hpf (0-5) 11/10/17 16:40 Urine Bacteria Rare (<OCC) 11/10/17 16:40 Ur Random Creatinine 103.3 mg/dL 11/10/17 16:40 Ur Random Sodium 39 mmol/L 11/10/17 16:40 Urine Creatinine 0.61 g/L 11/12/17 11:55 Ur Creatinine 24 Hour See note g/24 h (0.63-2.50) 11/12/17 11:55 Urine Microalbumin 21.5 mg/dL 11/10/17 16:40 Microalb/Creat Ratio 172 (<30) H 11/10/17 16:40 Ur Total Protein 24 Hr See note mg/24 h (<150) 11/12/17 11:55 Protein/Creat Ratio 24h 759 mg/g creat (</=84) H 11/12/17 11:55 Urine Total Protein 462 mg/L (50-250) H 11/12/17 11:55 Urine Albumin (PEP) 59.1 Relative % 11/12/17 11:55 Ur Protein Fractions See note 11/12/17 11:55 CARMELINA & SPEP Interp See note 11/11/17 06:54 Serum Immunofixation Not detected (Not Detected) 11/11/17 06:54 [place]/Lambda Light Chain (()) 11/11/17 06:54 Free [place] Light Chains 94.9 mg/L (3.3-19.4) H 11/11/17 06:54 Free Lambda Light Chain 64.3 mg/L (5.7-26.3) H 11/11/17 06:54 Free [place]/Lambda Ratio 1.48 (0.26-1.65) 11/11/17 06:54 - Hospital Course Hospital Course: 66 years old male with hx of DM II, CKD, DVT , Prostate CAncer and 2 years of Chronic back pain with Sciatica, only ambulating with a wheel chair and with assistance, came in because of worsening of the left lower extremity pain, originating from the left groin and down the thighs to below the knee. Bladder scan in the ED showed no urine in bladder. IN ER BUN / Cr found to be 101/3.8 K 5.3 AG 26. Patient had not been eating and drinking very well. He was admitted in telemetry for acute on chronic renal failure with hyperkalemia and back pain with sciatica He was started on IVF with improvement of renal function Cr 1.9. US abdomen showed right kidney lower pole solid mass 4.9 cm Thoracic spine imaging showed :Severe compression deformity of L3 vertebra with diffuse sclerosis suspicious for sclerotic metastasis. Questionable sclerotic focus in the L5 vertebra. MRI renal and thoracic lumbar spine ordered but patient unable to tolerate due to severe pain . Arrangements made for MRI with sedation that was performed . Pain management also consulted for help with pain control At present pain is better controlled Discussed with radiology : Multilevel thoracic metastases throughout the vertebral bodies as discussed above primarily at the mid to inferior levels in a mixed pattern. Extensive restrained lymphadenopathy is appreciated in the upper abdomen anterior to the inferior thoracic and upper lumbar levels as discussed above. Small central disc herniation at T 910 results in limited central canal stenosis and impinges ventral nerve roots likely, without cord deformity. . Gross L3 compression fracture and heterogeneous Marrow pattern suggestive of pathological origin resulting in severe central stenosis at the L3 level, moderate L3-4 and mild at L2-3 as discussed above. There is likely diffuse metastasis throughout the lumbar spine. Further characterization by PET-CT or whole-body nuclear bone scan can be performed for global skeletal evaluation. Extensive retroperitoneal lymphadenopathy is identified. Consider follow-up abdomen pelvis CT with contrast for added detail. Findings of all tests including renal US, PSA , MRI thoracic / lumbar spine and CT of abd /pelvis - explained to patient Informed of potential diagnosis of metastatic prostate Cancer and diagnosis of renal carcinoma. Had long discussion with patient and also called and got information from Patient explains that he had diagnosis of prostate cancer 10 years ago and received radiation therapy at that time. 2 years ago at [facility] was diagnosed with prostate CA with spine metastasis,diagnosed with biopsy. He received chemotherapy IV and injections/ week in [place] with an oncologist .He also received radiation therapy in [place]. 1. Acute on chronic renal failure Improving with IVF Cr trending down 1.9 Renal US showed solid mass 4.9 cm to lower pole of right kidney suspicious for malignancy. MRI renal ordered without contrast to better evaluate the mass as well but patient could not tolerate . Can not do CT contrast due to renal failure Nephro consult appreciated Plasma and urine electrophoresis not elevated PSA highly elevated 1500 suggesting recurrence of prostatic CA . Renal mass suggestive of ? renal CA ( explained to pt need for further work up as outpt) 2. Intractable back pain and radiculopathy secondary to metastatic disease of the spine no urinary retention or saddle anesthesia Xray of spine showed severe compression fracture L 3 and lesion of L5 MRI showed Multilevel thoracic metastases throughout the vertebral bodies as discussed above primarily at the mid to inferior levels in a mixed pattern. Extensive restrained lymphadenopathy is appreciated in the upper abdomen anterior to the inferior thoracic and upper lumbar levels as discussed above. Small central disc herniation at T 910 results in limited central canal stenosis and impinges ventral nerve roots likely, without cord deformity. . Gross L3 compression fracture and heterogeneous Marrow pattern suggestive of pathological origin resulting in severe central stenosis at the L3 level, moderate L3-4 and mild at L2-3 as discussed above. There is likely diffuse metastasis throughout the lumbar spine. Further characterization by PET-CT or whole-body nuclear bone scan can be performed for global skeletal evaluation. Extensive retroperitoneal lymphadenopathy is identified. Consider follow-up abdomen pelvis CT with contrast for added detail. Accdg to Dr. Parham based on MRI findings patient is not a candidate for kyphoplasty. UPEP , SPEP - not elevated PSA 1500 Discussed with oncology . Most likely patient has recurrence of prostate CA and has renal CA. Patient now states that he was dx with metastatic prostate CA ( diagnosed 2 years ago at [facility] ) and has received Chemo and radiation with an oncologist patient will most likely need to be started on hormonal therapy for prostate Ca and poss Radiation treatment to the spine - pt states that he will go back anf ff up with his own Oncologist and Urologist and also states that his daughter told him that she wants to bring him to [facility] bec this was where he used to work Pain at present is better controlled d/c Amos catheter Continue pain management , Flexeril, lidoderm patch , morphine and gabapentin , will add Oxycontin as rec by Pain mgt Continue PT/OT. Patient ambulates with wheelchair and walker 3. Hyperkalemia-- resolved given D50 and Insulin with sodium bicarbonate and calcium Gluconate given in Ed Dr Espino rec to restart Losartan but at a low dose 4. DM with Hypoglycemia Hgb A1c 8.[address] Espino rec to start low dose Januvia but d/c Metformin diabetic diet Accuchecks and insulin coverage 5. Anemia of chronic disease and iron deficiency Hgb 9.2 received Venofer IV 6.Hypothyroidism continue Synthroid TSH ( controlled) 7. Hx of Prostate Cancer-- most likely has recurrence of prostate CA with mets history of Brachytherapy and chemo PSA 1500 advised to ff up with his Urologist alesha , may need to be restarted on his Lupron and Raditiox tx to spine 8. DVT prophylaxis cont Eliquis Discharge Exam - Head Exam Head Exam: ATRAUMATIC, NORMAL INSPECTION, NORMOCEPHALIC - Eye Exam Eye Exam: EOMI, Normal appearance Pupil Exam: NORMAL ACCOMODATION - ENT Exam ENT Exam: Mucous Membranes Moist, Normal External Ear Exam - Neck Exam Neck exam: Full Rom - Respiratory Exam Respiratory Exam: NORMAL BREATHING PATTERN. absent: Respiratory Distress - Cardiovascular Exam Cardiovascular Exam: REGULAR RHYTHM, +S1, +S2 - GI/Abdominal Exam GI & Abdominal Exam: Normal Bowel Sounds, Soft. absent: Tenderness - Extremities Exam Extremities exam: normal capillary refill, pedal pulses present - Back Exam Back exam: paraspinal tenderness. absent: CVA tenderness (L), CVA tenderness (R ) - Neurological Exam Neurological exam: Alert, Oriented x3 - Psychiatric Exam Psychiatric exam: Normal Affect, Normal Mood - Skin Skin Exam: Dry, Normal Color, Warm Discharge Plan - Discharge Medications Prescriptions: Cyclobenzaprine [Flexeril] 5 mg PO TID PRN #90 tab PRN Reason: Muscle Spasm Gabapentin [Neurontin] 300 mg PO TID #90 cap Lidocaine 5% [Lidoderm] 1 ea TD DAILY #30 patch oxyCODONE [oxyCONTIN Extended Release Tab] 10 mg PO Q12 #30 tabsr Sennosides A and B [Senokot Tab] 25.8 mg PO HS #30 tab SITagliptin [Januvia] 50 mg PO DAILY #30 tab Tamsulosin [Flomax] 0.4 mg PO DAILY #30 cap Valsartan [Diovan] 80 mg PO DAILY #30 tab - Follow Up Plan Condition: STABLE Disposition: HOME/ ROUTINE Instructions: Prostate Cancer (DC) Additional Instructions: ff up with own Oncologist and Urologist alesha - need further work up for ? Renal Mass and would possibly need Radiation tx for Mets to spine and poss Lupron tx ff up with PMD Dr Soto alesha Referrals: Shaik Oliveira MD [Primary Care Provider] -
--- NOTE | 2017-11-17 20:12 | PN ---
DATE: 11/17/2017 SUBJECTIVE: The patient is currently resting comfortably at the bedside today. He is voiding jenifer urine well without complaints. Additional history obtained for this patient is a known prostate cancer patient with metastatic disease to the thoracic spine followed by Dr. Oliveira at [facility]. His total PSA this admission was 1420, which is markedly elevated consistent with metastatic prostate cancer. The abdominal MRI was not able to be done. DIAGNOSTIC IMPRESSION: For this patient: 1. Metastatic prostate cancer. 2. Possible right renal mass. PLAN: Plan for this patient is to have the patient just follow up with Dr. Oliveira and his oncologist for treatment of his metastatic prostate cancer. Jesus Guzman MD MTDD
== END 2017-11-17 17:15 | disposition home or self-care (01) | DRG 683 ==
LOC: H.ER 22:49 → H.ERHOLD 11-10 02:11 → H.TEL 11-10 04:21 → H.MEDSURG1 11-12 15:50
PROVIDERS: ADMIT Internal Medicine; ATTEND Internal Medicine
PROC: 3E0234Z Introduction of Serum, Toxoid and Vaccine into Muscle, Percutaneous Approach (ICD-10-PCS; 2017-11-10)
PROC: B03BZZZ Magnetic Resonance Imaging (MRI) of Spinal Cord (ICD-10-PCS; principal; 2017-11-14 07:30)
DX: N17.9 Acute kidney failure, unspecified (principal); I12.0 Hypertensive chronic kidney disease with stage 5 chronic kidney disease or end stage renal disease; E87.4 Mixed disorder of acid-base balance; C64.9 Malignant neoplasm of unspecified kidney, except renal pelvis; C79.51 Secondary malignant neoplasm of bone; M48.56XA Collapsed vertebra, not elsewhere classified, lumbar region, initial encounter for fracture; N18.5 Chronic kidney disease, stage 5; E87.5 Hyperkalemia; G89.29 Other chronic pain; E83.52 Hypercalcemia; D50.9 Iron deficiency anemia, unspecified; D63.1 Anemia in chronic kidney disease; E03.9 Hypothyroidism, unspecified; E11.22 Type 2 diabetes mellitus with diabetic chronic kidney disease; E11.65 Type 2 diabetes mellitus with hyperglycemia; E11.649 Type 2 diabetes mellitus with hypoglycemia without coma; E11.21 Type 2 diabetes mellitus with diabetic nephropathy; E78.5 Hyperlipidemia, unspecified; E78.00 Pure hypercholesterolemia, unspecified; M48.061 Spinal stenosis, lumbar region without neurogenic claudication; M54.42 Lumbago with sciatica, left side; N40.0 Benign prostatic hyperplasia without lower urinary tract symptoms; R91.1 Solitary pulmonary nodule; Z85.46 Personal history of malignant neoplasm of prostate; Z79.01 Long term (current) use of anticoagulants; Z79.4 Long term (current) use of insulin; Z86.718 Personal history of other venous thrombosis and embolism; Z23 Encounter for immunization; Z92.21 Personal history of antineoplastic chemotherapy; Z92.3 Personal history of irradiation; Z74.01 Bed confinement status; Z99.3 Dependence on wheelchair

== ENCOUNTER 2017-12-05 14:39 | Observation (INO) | payer MEDICAID, OTHER ==
[2017-12-05 14:40] VITALS: BMI 34.4
--- NOTE | 2017-12-05 16:04 | ED PDOC ---
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 Patient reports swelling below the knee b/l and claims its also painful, he also noted abdominal distention but no pain. Patient was prescribed diuretics and is taking them daily. In the past patient was on chemo and radiation but currently is not. He also reports chronic difficulty urinating but denies any fever, chills, nausea, vomit, diarrhea or headache. No further medical complaints. PMD: Shaik Oliveira [place] [facility] [place] Medical History Reviewed: Historical Data, Nursing Documentation, Vital Signs Vital Signs: Last Vital Signs Temp 98.5 F 12/05/17 14:48 Pulse 102 H 12/05/17 14:48 Resp 18 12/05/17 14:48 BP 127/70 12/05/17 14:48 Pulse Ox 98 12/05/17 14:48 - Medical History PMH: Arthritis (back pain, r knee pain), Diabetes, Deep Vein Thrombosis, HTN, Hypercholesterolemia, Hypothyroidism, Chronic Kidney Disease Other PMH: Prostate CA - Surgical History Surgical History: Hernia Repair - Family History Family History: States: Unknown Family Hx - Social History Current smoker - smoking cessation education provided: No Alcohol: None Drugs: Denies - Immunization History Hx Tetanus Toxoid Vaccination: No Hx Influenza Vaccination: Yes Hx Pneumococcal Vaccination: Yes - Home Medications Home Medications: Ambulatory Orders Medication Instructions Recorded Apixaban [Eliquis] 5 mg PO Q12 11/10/17 Levothyroxine Sodium [Synthroid] 175 mcg PO DAILY 11/10/17 Omeprazole 20 mg PO DAILY 11/10/17 Rosuvastatin Calcium [Crestor] 10 mg PO HS 11/10/17 amLODIPine [Norvasc] 5 mg PO DAILY 11/10/17 Gabapentin [Neurontin] 300 mg PO TID #90 cap 11/17/17 Sennosides A and B [Senokot Tab] 25.8 mg PO HS #30 tab 11/17/17 Tamsulosin [Flomax] 0.4 mg PO DAILY #30 cap 11/17/17 Cyclobenzaprine [Flexeril] 10 mg PO Q8 PRN 12/05/17 Dexamethasone [Decadron] 4 mg PO DAILY 12/05/17 Lactulose [Generlac] 30 ml PO Q12 PRN 12/05/17 Torsemide [Demadex] 20 mg PO DAILY 12/05/17 oxyCODONE [oxyCODONE Immediate 10 mg PO Q12 PRN 12/05/17 Release Tab] Docusate [Colace] 100 mg PO BID #60 cap 12/06/17 Insulin Glargine, Recombina 25 unit SQ BID #0 12/06/17 [Lantus] - Allergies Allergies/Adverse Reactions: Allergies Allergy/AdvReac Type Severity Reaction Status Date / Time No Known Allergies Allergy Verified 12/05/17 14:48 Wells Criteria for PE - Wells Criteria for Pulmonary Embolism Clinical Signs and Symptoms of DVT: Yes P.E is #1 Diagnosis, or Equally Likely: No Heart Rate >100: No Immobilization at least 3 days;Surgery previous 4 weeks: No Previous, objectively diagnosed PE or DVT: No Hemoptysis: No Malignancy w/treatment within 6 months, or palliative: No Total Score: 3 Review of Systems ROS Statement: Except As Marked, All Systems Reviewed And Found Negative Constitutional: Negative for: Fever, Chills Gastrointestinal: Positive for: Other (abdominal distention). Negative for: Nausea, Vomiting, Abdominal Pain, Diarrhea Genitourinary Male: Positive for: Other (chronic urinary retention ) Musculoskeletal: Positive for: Leg Pain (b/l leg swelling) Neurological: Negative for: Headache Physical Exam - Reviewed Nursing Documentation Reviewed: Yes Vital Signs Reviewed: Yes - Physical Exam Appears: Positive for: Non-toxic, No Acute Distress (comfortable) Head Exam: Positive for: ATRAUMATIC, NORMOCEPHALIC Skin: Positive for: Normal Color, Warm, Dry Eye Exam: Positive for: Normal appearance, EOMI, PERRL ENT: Positive for: Normal ENT Inspection Neck: Positive for: Painless ROM, Supple Cardiovascular/Chest: Positive for: Regular Rate, Rhythm Respiratory: Positive for: Normal Breath Sounds. Negative for: Respiratory Distress Gastrointestinal/Abdominal: Positive for: Soft, Distended. Negative for: Tenderness Back: Positive for: Other (paraspinal lower back tenderness ) Extremity: Positive for: Normal ROM (upper and lower extremities), Swelling (b/ l pitting edema below the knee. Edema symmetric, no redness, wound or discharge. ), Other (upper extremities normal). Negative for: Calf Tenderness (b/l) Neurologic/Psych: Positive for: Alert, Oriented. Negative for: Motor/Sensory Deficits - Laboratory Results Result Diagrams: 12/06/17 04:20 12/06/17 07:20 - ECG ECG: Positive for: Interpreted By Me, Viewed By Me ECG Rhythm: Positive for: Normal QRS, Normal ST Segment, Sinus Rhythm. Negative for: ST/T Changes Rate: 89 O2 Sat by Pulse Oximetry: 98 (RA) Pulse Ox Interpretation: Normal - Critical Care Total Time (In Min): 30 Documented Critical Care: Time excludes all time spent performint seperately billable procedures Medical Decision Making Medical Decision Making: Initial impression: leg swelling and abdominal distention. Differential includes : anasarca from acute renal failure, obstructive uropathy. r/o DVT of both extremities, metastatic disease of the abdomen, ascites Initial Plan: --EKG --B-Type Natriuretic Peptide --BMP --Troponin I --Uric Acid --CBC w/ differential --Chest portable [RAD] --Duplex lower extrm vein bilat [US] --Reevaluation 16:23 CXR FINDINGS: LUNGS: No active pulmonary disease. PLEURA: No significant pleural effusion identified, no pneumothorax apparent. CARDIOVASCULAR: No radiographic findings to suggest acute or significant cardiovascular disease. OSSEOUS STRUCTURES: No significant abnormalities. VISUALIZED UPPER ABDOMEN: Normal. OTHER FINDINGS: None. IMPRESSION: No active disease. No significant interval change compared to the prior examination(s). 16:55 Extremity Ultrasound FINDINGS: COMMON FEMORAL VEIN: Right CFV: Unremarkable. Left CFV: Unremarkable. SUPERFICIAL FEMORAL VEIN: Right SFV: Unremarkable. Left SFV: Unremarkable. POPLITEAL VEIN: Right Popliteal: Unremarkable. Left Popliteal: Unremarkable. POSTERIOR TIBIAL VEIN: Right PTV: Unremarkable. Left PTV: Unremarkable. OTHER FINDINGS: None. IMPRESSION: No evidence of deep venous thrombosis. 1850 Labs revealed hyperkalemia Ordered calcium gluconate IV insulin IV d50 IV albuterol INH kayexalate PO [address] Mayo who recommends IVF 75cc/hr, mccormack if bladder is full, and kayexalate. 1730 Bladder scan revealed over 900 cc urine retention. 1740 Procedure: Urinary catheterization Coude urinary catheter 20 was inserted in sterile fashion. Successful with large urinary output. No complications. Tolerated well. [address] Barrientos who recommends patient to follow up outpatient with his primary urologist. 1850 CT Abd / Pelvis FINDINGS: LOWER THORAX: Small pulmonary nodules at the lung bases unchanged. Resolution of left pleural effusion and improved aeration the visualized lower lung lucas. LIVER: Unremarkable. No gross lesion or ductal dilatation. GALLBLADDER AND BILE DUCTS: Unremarkable. PANCREAS: Unremarkable. No gross lesion or ductal dilatation. SPLEEN: Unremarkable. ADRENALS: Unremarkable. No mass. KIDNEYS AND URETERS: Unremarkable. No hydronephrosis. No solid mass. VASCULATURE: Unremarkable. No aortic aneurysm. BOWEL: Constipation without fecal impaction or obstruction. (Severe). There is a component of fecal impaction as well. APPENDIX: Unremarkable. Normal appendix. PERITONEUM: Unremarkable. No free fluid. No free air. LYMPH NODES: Bulky retroperitoneal and to lesser extent pelvic adenopathy. Similar findings identified previously. BLADDER: Unremarkable. REPRODUCTIVE: Intra-prostatic seeds related to brachytherapy. Mccormack catheter at also identified decompressing the urinary bladder. BONES: Widely disseminated sclerotic metastatic disease throughout visualized thoracolumbar spine, visualize lower ribs. L3 compression fracture a finding identified on prior lumbar MRI performed 11/14. Less extensive sclerotic metastatic disease identified in the pelvis. OTHER FINDINGS: None. IMPRESSION: 1. Severe constipation and fecal impaction. This is worse than that seen previously. This likely accounts for a greater degree of abdominal distension. 2. Stable abdominal retroperitoneal and pelvic adenopathy. 3. Stable osseous metastatic disease. 4. Resolution of left pleural effusion and left lower lobe infiltrate Scribe Attestation: Documented by Víctor Meyers, acting as a scribe for Ross Ortiz MD Provider Scribe Attestation: All medical record entries made by the Scribe were at my direction and personally dictated by me. I have reviewed the chart and agree that the record accurately reflects my personal performance of the history, physical exam, medical decision making, and the department course for this patient. I have also personally directed, reviewed, and agree with the discharge instructions and disposition. Procedures - Time-Out Type of Procedure: urinary catheter Site of Procedure: bladder Correct Patient (with visual ID + MR# on ID Band): Yes Correct Procedure: Yes Correct Site Marked: Yes X-Ray Marked: No Medication Reconciliation / Bloodwork / Allergies Checked: Yes Physician Name: [place] Disposition - Clinical Impression Clinical Impression: ARF (acute renal failure), Obstructive uropathy, Anasarca, Hyperkalemia, Prostate cancer, UTI (urinary tract infection), Fecal impaction - Patient ED Disposition Is Patient to be Admitted: Yes Discussed With : Gerardo Caicedo Doctor Will See Patient In The: ED Counseled Patient/Family Regarding: Studies Performed, Diagnosis - Disposition Disposition Time: 17:00 Condition: FAIR - Pt Status Changed To: Hospital Disposition Of: Inpatient - Admit Certification Admit to Inpatient:: After my assessment, the patient will require hospitalization for at least two midnights. This is because of the severity of symptoms shown, intensity of services needed, and/or the medical risk in this patient being treated as an outpatient. - POA Present On Arrival: None, Poor Glycemic Control
[2017-12-05 16:24] LABS: BASO % 0.4 % (0.0-2.0); EOS # 0.3 K/uL (0.0-0.7); EOS % 2.5 % (0.0-4.0); HEMOGLOBIN 10.4 g/dL (12.0-18.0); LYMPH # 0.9 K/uL (1.0-4.3); LYMPH % 8.1 % (20.0-40.0); MEAN CELL VOLUME 90.4 fl (80.0-94.0); MEAN CORPUSCULAR HEMOGLOBIN 29.1 pg (27.0-31.0); MEAN CORPUSCULAR HGB CONC 32.2 g/dL (33.0-37.0); MEAN PLATELET VOLUME 9.1 fl (7.2-11.7); MONO # 1.4 K/uL (0.0-0.8); MONO % 12.9 % (0.0-10.0); NEUT # 8.1 K/uL (1.8-7.0); NEUT % 76.1 % (50.0-75.0); PLATELET COUNT 274 K/uL (130-400); RBC 3.58 Mil/uL (4.40-5.90); RED CELL DISTRIBUTION WIDTH 16.5 % (11.5-14.5); WHITE BLOOD COUNT 10.7 K/uL (4.8-10.8)
--- NOTE | 2017-12-05 16:25 | RAD ---
HISTORY: Dyspnea. COMPARISON: 11/10/2017 FINDINGS: LUNGS: No active pulmonary disease. PLEURA: No significant pleural effusion identified, no pneumothorax apparent. CARDIOVASCULAR: No radiographic findings to suggest acute or significant cardiovascular disease. OSSEOUS STRUCTURES: No significant abnormalities. VISUALIZED UPPER ABDOMEN: Normal. OTHER FINDINGS: None. IMPRESSION: No active disease. No significant interval change compared to the prior examination(s).
[2017-12-05 16:51] LABS: B-TYPE NATRIURETIC PEPTIDE 128 pg/ml (0-900)
--- NOTE | 2017-12-05 16:56 | US ---
PROCEDURE: KeyBilateral lower extremity venous duplex Doppler. HISTORY: leg swelling pain COMPARISON: None available. TECHNIQUE: Bilateral common femoral, superficial femoral, popliteal and posterior tibial veins were evaluated. Flow was assessed with color Doppler, compressibility, assessment of phasic flow and augmentation response. FINDINGS: COMMON FEMORAL VEIN: Right CFV: Unremarkable. Left CFV: Unremarkable. SUPERFICIAL FEMORAL VEIN: Right SFV: Unremarkable. Left SFV: Unremarkable. POPLITEAL VEIN: Right Popliteal: Unremarkable. Left Popliteal: Unremarkable. POSTERIOR TIBIAL VEIN: Right PTV: Unremarkable. Left PTV: Unremarkable. OTHER FINDINGS: None. IMPRESSION: No evidence of deep venous thrombosis.
[2017-12-05 16:58] LABS: BLOOD UREA NITROGEN 117 mg/dl (9-20); CALCIUM 9.7 mg/dL (8.4-10.2); GFR AFRICAN-AMERICAN 28; GFR NON-AFRICAN AMERICAN 23; URIC ACID 9.9 mg/Dl (3.5-8.5)
[2017-12-05] MEDS ORDERED: Albuterol 0.083% Inhal Sol (2.5 mg/3 mL) UD INH STA (16:59)
[2017-12-05] MEDS ORDERED: Sod Polystyrene Sulf 15 gm/60 ml Susp PO ONE (17:00)
[2017-12-05] MEDS ORDERED: Dextrose 50% SYRINGE Inj (50 ml) IVP ONE (17:00)
[2017-12-05] MEDS ORDERED: Insulin Regular 100 units/ml IV STA (17:00)
[2017-12-05 17:02] LABS: EOSINOPHIL 6 % (0-7); LYMPHOCYTE 7 % (20-50); METAMYELOCYTE 1 % (0-0); MONOCYTE 6 % (0-10); NEUTROPHIL 74 % (42-75); REACTIVE LYMPHOCYTES 6 % (0-0); TOTAL CELLS COUNTED 100
[2017-12-05 17:05] LABS: ANISOCYTOSIS SLIGHT; MICROCYTOSIS SLIGHT; POIKILOCYTOSIS SLIGHT; STOMATOCYTES SLIGHT
[2017-12-05 17:06] LABS: GIANT PLATELETS PRESENT; LARGE PLATELETS PRESENT; OVALOCYTES SLIGHT; PLATELET CLUMPS PRESENT; TEARDROP CELLS SLIGHT
[2017-12-05 17:08] LABS: PLATELET ESTIMATE NORMAL (NORMAL)
[2017-12-05] MEDS ORDERED: Sodium Chloride 0.9% 1,000 ML IV SCH (17:15)
[2017-12-05] MEDS ORDERED: Lactulose 10 gm/15 ml (Rectal Use) PR PRN (17:45)
[2017-12-05] MEDS ORDERED: oxyCODONE 10 mg Immediate Release Tab PO PRN (17:45)
[2017-12-05] MEDS ORDERED: INSULIN GLARGINE RECOMBINA 20 UNIT SQ SCH (17:45)
[2017-12-05] MEDS ORDERED: Albuterol-Ipratrop 3 mg / 0.5 (3 ml) UD INH PRN (18:06)
--- NOTE | 2017-12-05 18:21 | CP.PCM.HP ---
History of Present Illness - History of Present Illness History of Present Illness: CC: Leg swelling This is a 66 year old male with pmh of DM II, CKD, DVT , Prostate Cancer with metastatic disease to the abdomen and vertebrae, s/p radiation therapy in the past, who presents to the ED with abdominal and bilateral lower extremity swelling getting progressively worse for the last 5 days along with acute on chronic lumbosacral back pain. The patient is accompanied by his daughters in the room. The patient has previously been treated for prostate CA at [facility] and was diagnosed 11 years ago. In the ED he was found to have anasarca with diffuse edema and some shortness of breath. He was also noted to have acute on chronic renal failure with a BUN of 117 and Cr of 2.8, unsure if this is obstructive uropathy due to cancer or due to dehydration from low po intake. He is also found to have hyperkalemia of 5.8 without EKG changes; he was given D50 and insulin, calcium gluconate, and kayexelate. Patient is hemodynamically stable for observation placement on telemetry. Patient denies chest pain, shortness of breath, fevers, chills, nausea, vomiting, diarrhea, headache. All of the patient's and/or family's questions were answered at the bedside. Primary care physician: Shaik eTe HARRISON Present on Admission - Present on Admission Any Indicators Present on Admission: Yes History of DVT/PE: Yes History of Uncontrolled Diabetes: Yes Review of Systems - Review of Systems Review of Systems: A 12 point review of systems was conducted and found to be negative other than what was mentioned in the HPI. Past Patient History - Infectious Disease Hx of Infectious Diseases: None - Past Medical History & Family History Past Medical History?: Yes - Past Social History Smoking Status: Never Smoked Alcohol: None Drugs: Denies - CARDIAC Hx Hypercholesterolemia: Yes Hx Hypertension: Yes - PULMONARY Hx Respiratory Disorders: No - NEUROLOGICAL Hx Neurological Disorder: No - HEENT Hx HEENT Problems: No - RENAL Hx Chronic Kidney Disease: Yes - ENDOCRINE/METABOLIC Hx Hypothyroidism: Yes - HEMATOLOGICAL/ONCOLOGICAL Hx Blood Disorders: Yes Hx Cancer: Yes (prostatic 7 yrs ago) - INTEGUMENTARY Hx Dermatological Problems: No - MUSCULOSKELETAL/RHEUMATOLOGICAL Hx Arthritis: Yes (back pain, r knee pain) - GASTROINTESTINAL Hx Gastrointestinal Disorders: No - GENITOURINARY/GYNECOLOGICAL Hx Genitourinary Disorders: Yes Hx Prostate Cancer: Yes (7 years ago) - PSYCHIATRIC Hx Psychophysiologic Disorder: No Hx Substance Use: No - ANESTHESIA Hx Anesthesia: Yes Hx Anesthesia Reactions: No Meds Allergies/Adverse Reactions: Allergies Allergy/AdvReac Type Severity Reaction Status Date / Time No Known Allergies Allergy Verified 12/05/17 14:48 Physical Exam - Additional Findings Additional findings: Physical exam: Constitutional- cooperative, awake, alert Head- NCAT, PERRL Eye- PERRL, EOMI ENT- normal exam, MMM. Neck- normal inspection, supple, no JVD Respiratory- no wheezes, rales bilaterally Cardiovascular- RRR, +S1, +S2 no MRG GI/Abdominal- + Anasarca. normal bowel sounds, soft, no mass, no hsm Skin- warm, dry Extremities Exam- + 3 pitting edema bilateral lower extremity with venous stasis discoloration normal capillary refill, normal inspection Neurological Exam- alert, awake, oriented, although appears lethargic Psych- normal mood, normal affect Results - Vital Signs Recent Vital Signs: Last Vital Signs Temp 98.5 F 12/05/17 14:48 Pulse 89 12/05/17 18:08 Resp 17 12/05/17 17:20 BP 125/78 12/05/17 17:20 Pulse Ox 98 12/05/17 18:08 - Labs Result Diagrams: 12/05/17 16:00 12/05/17 16:00 Labs: Laboratory Results - last 24 hr 12/05/17 12/05/17 16:00 16:00 WBC 10.7 D RBC 3.58 L Hgb 10.4 L Hct 32.4 L MCV 90.4 MCH 29.1 MCHC 32.2 L RDW 16.5 H Plt Count 274 MPV 9.1 Neut % (Auto) 76.1 H Lymph % (Auto) 8.1 L [place] % (Auto) 12.9 H Eos % (Auto) 2.5 Baso % (Auto) 0.4 Neut # (Auto) 8.1 H Lymph # (Auto) 0.9 L [place] # (Auto) 1.4 H Eos # (Auto) 0.3 Baso # (Auto) 0.0 Neutrophils % (Manual) 74 Lymphocytes % (Manual) 7 L Reactive Lymphs % 6 H Monocytes % (Manual) 6 Eosinophils % (Manual) 6 Metamyelocytes % 1 H Platelet Estimate Normal Plt Clumps, EDTA Present Large Platelets Present Giant Platelets Present Poikilocytosis (manual Slight Basophilic Stippling Slight Anisocytosis (manual) Slight Microcytosis (manual) Slight Tear Drop Cells Slight Ovalocytes Slight Stomatocytes Slight Sodium 139 Potassium 5.8 H Chloride 96 L Carbon Dioxide 26 Anion Gap 23 H BUN 117 H* D Creatinine 2.8 H Est GFR ( Amer) 28 Est GFR (Non-Af Amer) 23 Random Glucose 266 H Uric Acid 9.9 H Calcium 9.7 Troponin I < 0.0120 NT-Pro-B Natriuret Pep 128 Assessment & Plan - Assessment and Plan (Free Text) Plan: This is a 66 year old male with pmh of DM II, CKD, DVT , Prostate Cancer with metastatic disease to the abdomen and vertebrae, s/p radiation therapy in the past, who presents to the ED with abdominal and bilateral lower extremity swelling getting progressively worse for the last 5 days along with acute on chronic lumbosacral back pain. He is being placed on tele/obs due to acute renal failure and secondary hyperkalemia 1. Acute on chronic renal failure - BUN/CR 117/2.8 - Obstructive uropathy due to prostate cancer vs prerenal azotemia secondary to dehydration and poor po intake - Urinary catheter being placed - Continue gentle hydration - Hold ARB, HCTZ, torsemide. - Nephro consult appreciated - MRI on previous admission was unable to be performed - Plasma and urine electrophoresis was not elevated on last admission. - Patient very likely has recurrence of prostatic cancer. There is also a renal mass known from previous admission suspicious for concomitant renal carcinoma, although patient will need further workup as an outpatient 2. Acute on chronic back pain and radiculopathy secondary to metastatic disease of the spine From last admission: MRI showed Multilevel thoracic metastases throughout the vertebral bodies as discussed above primarily at the mid to inferior levels in a mixed pattern. Extensive restrained lymphadenopathy is appreciated in the upper abdomen anterior to the inferior thoracic and upper lumbar levels as discussed above. Small central disc herniation at T 910 results in limited central canal stenosis and impinges ventral nerve roots likely, without cord deformity. . Gross L3 compression fracture and heterogeneous Marrow pattern suggestive of pathological origin resulting in severe central stenosis at the L3 level, moderate L3-4 and mild at L2-3 as discussed above. There is likely diffuse metastasis throughout the lumbar spine. Further characterization by PET-CT or whole-body nuclear bone scan can be performed for global skeletal evaluation. Extensive retroperitoneal lymphadenopathy is identified. Consider follow-up abdomen pelvis CT with contrast for added detail. - Patient not a candidate for kyphoplasty based on MRI findings UPEP , SPEP - not elevated PSA 1500 Patient was encouraged to go to [facility] on last admission as he needs close follow up with his own oncologist; he was told to follow up there for Leuprolide therapy but unfortunately he did not follow up. - continue home pain medications 3. Hyperkalemia given D50 and Insulin and calcium Gluconate and kayexelate given in Ed 5.8 -due to renal failure - Nephrology consultation as above 4. Type 2 DM with neuropathy - Restart home insulin - insulin sliding scale - Continue Gabapentin 300 mg po TID 5. Hypothyroidism - Continue Synthroid 6. Hyperlipidemia - Continue statin 7. Essential hypertension - continue Norvasc - Hydralazine IV PRN - Holding other antihypertensives due to acute renal failrue 8. DVT prophylaxis - Sascha
[2017-12-05] MEDS: Sodium Chloride 0.45% 1,000 ML IV SCH (18:22)
--- NOTE | 2017-12-05 18:52 | CT ---
PROCEDURE: CT Abdomen and Pelvis without intravenous contrast HISTORY: abdominal distention COMPARISON: 11/16/2017 CT abdomen and pelvis TECHNIQUE: Unenhanced study. Neither oral nor intravenous contrast administered. Total exam DLP = Total exam DLP = 961.55 mGy-cm. This CT exam was performed using one or more of the following dose reduction techniques: Automated exposure control, adjustment of the mA and/or kV according to patient size, and/or use of iterative reconstruction technique. FINDINGS: LOWER THORAX: Small pulmonary nodules at the lung bases unchanged. Resolution of left pleural effusion and improved aeration the visualized lower lung lucas. LIVER: Unremarkable. No gross lesion or ductal dilatation. GALLBLADDER AND BILE DUCTS: Unremarkable. PANCREAS: Unremarkable. No gross lesion or ductal dilatation. SPLEEN: Unremarkable. ADRENALS: Unremarkable. No mass. KIDNEYS AND URETERS: Unremarkable. No hydronephrosis. No solid mass. VASCULATURE: Unremarkable. No aortic aneurysm. BOWEL: Constipation without fecal impaction or obstruction. (Severe). There is a component of fecal impaction as well. APPENDIX: Unremarkable. Normal appendix. PERITONEUM: Unremarkable. No free fluid. No free air. LYMPH NODES: Bulky retroperitoneal and to lesser extent pelvic adenopathy. Similar findings identified previously. BLADDER: Unremarkable. REPRODUCTIVE: Intra-prostatic seeds related to brachytherapy. Amos catheter at also identified decompressing the urinary bladder. BONES: Widely disseminated sclerotic metastatic disease throughout visualized thoracolumbar spine, visualize lower ribs. L3 compression fracture a finding identified on prior lumbar MRI performed 11/14/2017. Less extensive sclerotic metastatic disease identified in the pelvis. OTHER FINDINGS: None. IMPRESSION: 1. Severe constipation and fecal impaction. This is worse than that seen previously. This likely accounts for a greater degree of abdominal distension. 2. Stable abdominal retroperitoneal and pelvic adenopathy. 3. Stable osseous metastatic disease. 4. Resolution of left pleural effusion and left lower lobe infiltrate
[2017-12-05] MEDS ORDERED: cefTRIAXone (Rocephin) 1 gm Inj ONE (19:33)
[2017-12-05] MEDS ORDERED: Patient's Own Med (Rosuvastatin Calcium [Crestor] 10 MG) PO SCH (22:00)
[2017-12-05] MEDS: Insulin Detemir 100 Units/ml Inj SC SCH (22:44)
[2017-12-05] MEDS: Insulin Lispro (humaLOG) 100 Units/ml Inj SC SCH (22:44)
[2017-12-06] MEDS ORDERED: Insulin Lispro (humaLOG) 100 Units/ml Inj SC STA (00:01)
[2017-12-06 05:27] LABS: HEMOGLOBIN 9.5 g/dL (12.0-18.0); MEAN CELL VOLUME 89.3 fl (80.0-94.0); MEAN CORPUSCULAR HEMOGLOBIN 29.8 pg (27.0-31.0); MEAN CORPUSCULAR HGB CONC 33.3 g/dL (33.0-37.0); RBC 3.18 Mil/uL (4.40-5.90); RED CELL DISTRIBUTION WIDTH 16.4 % (11.5-14.5)
[2017-12-06] MEDS: Levothyroxine 175 MCG TAB PO SCH (05:54)
[2017-12-06] MEDS: Sodium Chloride 0.45% 1,000 ML IV SCH (05:54)
[2017-12-06] MEDS: Insulin Lispro (humaLOG) 100 Units/ml Inj SC SCH ×4 (05:59→22:45)
[2017-12-06 07:49] LABS: ALBUMIN 3.3 g/dL (3.5-5.0); CALCIUM 9.3 mg/dL (8.4-10.2)
[2017-12-06] MEDS ORDERED: Lactulose 10 gm/15 ml Syrup PO ONE (08:00)
[2017-12-06] MEDS: Insulin Detemir 100 Units/ml Inj SC SCH ×2 (08:57→21:34)
[2017-12-06] MEDS: Pantoprazole 20 mg EC Tab PO SCH (08:59)
--- NOTE | 2017-12-06 11:12 | CP.PCM.CON ---
History of Present Illness - History of Present Illness History of Present Illness: pt is seen and examined, follow up consult is dictated #[id number] Past Patient History - Infectious Disease Hx of Infectious Diseases: None - Past Medical History & Family History Past Medical History?: Yes - Past Social History Smoking Status: Never Smoked - CARDIAC Hx Cardiac Disorders: Yes (HTN, high cholesterol) Hx Hypercholesterolemia: Yes Hx Hypertension: Yes - PULMONARY Hx Respiratory Disorders: No - NEUROLOGICAL Hx Neurological Disorder: No - HEENT Hx HEENT Problems: No - RENAL Hx Chronic Kidney Disease: Yes - ENDOCRINE/METABOLIC Hx Endocrine Disorders: Yes (dm) Hx Diabetes Mellitus Type 2: Yes - HEMATOLOGICAL/ONCOLOGICAL Hx Blood Disorders: No Hx AIDS: No Hx Human Immunodeficiency Virus (HIV): No - INTEGUMENTARY Hx Dermatological Problems: No - MUSCULOSKELETAL/RHEUMATOLOGICAL Hx Musculoskeletal Disorders: Yes Hx Arthritis: Yes Hx Falls: No - GASTROINTESTINAL Hx Gastrointestinal Disorders: No - GENITOURINARY/GYNECOLOGICAL Hx Genitourinary Disorders: Yes (prostate ca) Hx Prostate Cancer: Yes - PSYCHIATRIC Hx Psychophysiologic Disorder: No Hx Substance Use: No - SURGICAL HISTORY Hx Surgeries: No - ANESTHESIA Hx Anesthesia: Yes Hx Anesthesia Reactions: No Meds Home Medications: Home Medication List Medication Instructions Recorded Confirmed Type Docusate [Colace] 100 mg PO BID #60 cap 12/06/17 Rx Insulin Glargine, Recombina 25 unit SQ BID #0 12/06/17 12/05/17 Rx [Lantus] Allergies/Adverse Reactions: Allergies Allergy/AdvReac Type Severity Reaction Status Date / Time No Known Allergies Allergy Verified 12/05/17 14:48 - Medications Medications: Current Medications Albuterol/Ipratropium (Duoneb 3 Mg/0.5 Mg (3 Ml) Ud) 3 ml INH RQ6 PRN PRN Reason: Shortness of Breath Amlodipine Besylate (Norvasc) 5 mg PO DAILY [facility] Last Admin: 12/06/17 08:58 Dose: 5 mg Apixaban (Eliquis) 5 mg PO Q12 [facility] PRN Reason: Protocol Last Admin: 12/06/17 08:50 Dose: 5 mg Atorvastatin Calcium (Lipitor) 20 mg PO HS [facility] Last Admin: 12/05/17 22:45 Dose: 20 mg Cyclobenzaprine HCl (Flexeril) 10 mg PO Q8 PRN PRN Reason: Muscle spasm Dexamethasone (Decadron) 4 mg PO DAILY [facility] Last Admin: 12/06/17 08:49 Dose: 4 mg Docusate Sodium (Colace) 100 mg PO BID [facility] Last Admin: 12/06/17 08:49 Dose: 100 mg Gabapentin (Neurontin) 300 mg PO TID [facility] Last Admin: 12/06/17 08:58 Dose: 300 mg Hydralazine HCl (Apresoline) 10 mg IV Q6 PRN PRN Reason: Systolic Blood Pressure Sodium Chloride (Sodium Chloride 0.45%) 1,000 mls @ 75 mls/hr IV .[id number] [facility] Stop: 12/06/17 17:20 Last Admin: 12/06/17 05:54 Dose: 75 mls/hr Insulin Detemir (Levemir) 20 units SC BID@0900,2100 [facility] Last Admin: 12/06/17 08:57 Dose: 20 units Insulin Human Lispro (Humalog) 0 units SC ACCU-CHECK [facility] PRN Reason: Protocol Last Admin: 12/06/17 05:59 Dose: 4 units Lactulose (Enulose) 20 gm PO Q12 PRN PRN Reason: Constipation Levothyroxine Sodium (Synthroid) 175 mcg PO DAILY@0630 [facility] Last Admin: 12/06/17 05:54 Dose: 175 mcg Oxycodone HCl (Oxycodone Immediate Release Tab) 10 mg PO Q12 PRN PRN Reason: Pain, severe (8-10) Pantoprazole Sodium (Protonix Ec Tab) 20 mg PO DAILY [facility] Last Admin: 12/06/17 08:59 Dose: 20 mg Sennosides (Senokot Tab) 25.8 mg PO HS [facility] Last Admin: 12/05/17 22:45 Dose: 25.8 mg Tamsulosin HCl (Flomax) 0.4 mg PO DAILY [facility] Last Admin: 12/06/17 08:55 Dose: 0.4 mg Results - Vital Signs Recent Vital Signs: Last Vital Signs Temp 98.2 F 12/06/17 07:57 Pulse 81 12/06/17 08:58 Resp 18 12/06/17 07:57 BP 136/88 12/06/17 08:58 Pulse Ox 99 12/06/17 07:57 - Labs Result Diagrams: 12/06/17 04:20 12/06/17 07:20 Labs: Laboratory Results - last 24 hr 12/05/17 12/05/17 12/05/17 16:00 16:00 22:11 WBC 10.7 D RBC 3.58 L Hgb 10.4 L Hct 32.4 L MCV 90.4 MCH 29.1 MCHC 32.2 L RDW 16.5 H Plt Count 274 MPV 9.1 Neut % (Auto) 76.1 H Lymph % (Auto) 8.1 L Rich % (Auto) 12.9 H Eos % (Auto) 2.5 Baso % (Auto) 0.4 Neut # (Auto) 8.1 H Lymph # (Auto) 0.9 L Rich # (Auto) 1.4 H Eos # (Auto) 0.3 Baso # (Auto) 0.0 Neutrophils % (Manual) 74 Lymphocytes % (Manual) 7 L Reactive Lymphs % 6 H Monocytes % (Manual) 6 Eosinophils % (Manual) 6 Metamyelocytes % 1 H Platelet Estimate Normal Plt Clumps, EDTA Present Large Platelets Present Giant Platelets Present Poikilocytosis (manual Slight Basophilic Stippling Slight Anisocytosis (manual) Slight Microcytosis (manual) Slight Tear Drop Cells Slight Ovalocytes Slight Stomatocytes Slight Sodium 139 Potassium 5.8 H Chloride 96 L Carbon Dioxide 26 Anion Gap 23 H BUN 117 H* D Creatinine 2.8 H Est GFR ( Amer) 28 Est GFR (Non-Af Amer) 23 POC Glucose (mg/dL) 400 H* Random Glucose 266 H Uric Acid 9.9 H Calcium 9.7 Total Bilirubin AST ALT Alkaline Phosphatase Troponin I < 0.0120 NT-Pro-B Natriuret Pep 128 Total Protein Albumin Globulin Albumin/Globulin Ratio 12/05/17 12/06/17 12/06/17 23:48 01:02 04:02 WBC RBC Hgb Hct MCV MCH MCHC RDW Plt Count MPV Neut % (Auto) Lymph % (Auto) Rich % (Auto) Eos % (Auto) Baso % (Auto) Neut # (Auto) Lymph # (Auto) Rich # (Auto) Eos # (Auto) Baso # (Auto) Neutrophils % (Manual) Lymphocytes % (Manual) Reactive Lymphs % Monocytes % (Manual) Eosinophils % (Manual) Metamyelocytes % Platelet Estimate Plt Clumps, EDTA Large Platelets Giant Platelets Poikilocytosis (manual Basophilic Stippling Anisocytosis (manual) Microcytosis (manual) Tear Drop Cells Ovalocytes Stomatocytes Sodium Potassium Chloride Carbon Dioxide Anion Gap BUN Creatinine Est GFR ( Amer) Est GFR (Non-Af Amer) POC Glucose (mg/dL) 401 H* 369 H 259 H Random Glucose Uric Acid Calcium Total Bilirubin AST ALT Alkaline Phosphatase Troponin I NT-Pro-B Natriuret Pep Total Protein Albumin Globulin Albumin/Globulin Ratio 12/06/17 12/06/17 04:20 07:20 WBC 10.0 RBC 3.18 L Hgb 9.5 L Hct 28.4 L MCV 89.3 MCH 29.8 MCHC 33.3 RDW 16.4 H Plt Count 240 MPV Neut % (Auto) Lymph % (Auto) Rich % (Auto) Eos % (Auto) Baso % (Auto) Neut # (Auto) Lymph # (Auto) Rich # (Auto) Eos # (Auto) Baso # (Auto) Neutrophils % (Manual) Lymphocytes % (Manual) Reactive Lymphs % Monocytes % (Manual) Eosinophils % (Manual) Metamyelocytes % Platelet Estimate Plt Clumps, EDTA Large Platelets Giant Platelets Poikilocytosis (manual Basophilic Stippling Anisocytosis (manual) Microcytosis (manual) Tear Drop Cells Ovalocytes Stomatocytes Sodium 139 Potassium 4.7 Chloride 99 Carbon Dioxide 25 Anion Gap 20 BUN 100 H* Creatinine 2.3 H Est GFR ( Amer) 35 Est GFR (Non-Af Amer) 29 POC Glucose (mg/dL) Random Glucose 259 H Uric Acid Calcium 9.3 Total Bilirubin 0.2 AST 24 ALT 42 Alkaline Phosphatase 111 Troponin I NT-Pro-B Natriuret Pep Total Protein 6.5 Albumin 3.3 L Globulin 3.2 Albumin/Globulin Ratio 1.0
[2017-12-06] MEDS ORDERED: Chlorhexidine Gluconate 1 APPL/PKT TP ONE (12:25)
[2017-12-06] MEDS ORDERED: Mineral Oil Enema 135 ml PR ONE ×2 (14:39→14:40)
--- NOTE | 2017-12-06 18:26 | CP.PCM.PN ---
Subjective - Date & Time of Evaluation Date of Evaluation: 12/06/17 Time of Evaluation: 18:00 - Subjective Subjective: Pt seen several times abd pain better however fecal impaction noted on CT of abd- laxatives, suppository , enema ordered - per RN pt had evacuated some large hard BM Amos cath d/c to assess if there is urinary retention - pt denies retention at home - ? sec to meds in pt with large prostate no CP no SOB no saddle anesthesia Back pain controlled Objective - Vital Signs/Intake and Output Vital Signs (last 24 hours): Temp Pulse Resp BP Pulse Ox 97.9 F 82 20 123/74 99 12/06/17 15:39 12/06/17 15:39 12/06/17 15:39 12/06/17 15:39 12/06/17 15:39 Intake and Output: 12/06/17 12/06/17 06:59 18:59 Intake Total 1000 2300 Output Total 2500 2000 Balance -1500 300 - Medications Medications: Current Medications Albuterol/Ipratropium (Duoneb 3 Mg/0.5 Mg (3 Ml) Ud) 3 ml INH RQ6 PRN PRN Reason: Shortness of Breath Amlodipine Besylate (Norvasc) 5 mg PO DAILY [facility] Last Admin: 12/06/17 08:58 Dose: 5 mg Apixaban (Eliquis) 5 mg PO Q12 [facility] PRN Reason: Protocol Last Admin: 12/06/17 08:50 Dose: 5 mg Atorvastatin Calcium (Lipitor) 20 mg PO HS [facility] Last Admin: 12/05/17 22:45 Dose: 20 mg Cyclobenzaprine HCl (Flexeril) 10 mg PO Q8 PRN PRN Reason: Muscle spasm Dexamethasone (Decadron) 4 mg PO DAILY [facility] Last Admin: 12/06/17 08:49 Dose: 4 mg Docusate Sodium (Colace) 100 mg PO BID [facility] Last Admin: 12/06/17 16:53 Dose: 100 mg Finasteride (Proscar) 5 mg PO DAILY [facility] Last Admin: 12/06/17 12:21 Dose: 5 mg Gabapentin (Neurontin) 300 mg PO TID [facility] Last Admin: 12/06/17 17:16 Dose: 300 mg Insulin Detemir (Levemir) 25 units SC BID@0900,2100 [facility] Insulin Human Lispro (Humalog) 0 units SC ACCU-CHECK [facility] PRN Reason: Protocol Last Admin: 12/06/17 16:54 Dose: 3 units Lactulose (Enulose) 20 gm PO Q12 PRN PRN Reason: Constipation Levothyroxine Sodium (Synthroid) 175 mcg PO DAILY@0630 [facility] Last Admin: 12/06/17 05:54 Dose: 175 mcg Oxycodone HCl (Oxycodone Immediate Release Tab) 10 mg PO Q12 PRN PRN Reason: Pain, severe (8-10) Last Admin: 12/06/17 12:10 Dose: 10 mg Pantoprazole Sodium (Protonix Ec Tab) 20 mg PO DAILY [facility] Last Admin: 12/06/17 08:59 Dose: 20 mg Sennosides (Senokot Tab) 25.8 mg PO HS [facility] Last Admin: 12/05/17 22:45 Dose: 25.8 mg Tamsulosin HCl (Flomax) 0.4 mg PO DAILY [facility] Last Admin: 12/06/17 08:55 Dose: 0.4 mg - Labs Labs: 12/06/17 04:20 12/06/17 07:20 - Constitutional Appears: Chronically Ill - Head Exam Head Exam: ATRAUMATIC, NORMAL INSPECTION, NORMOCEPHALIC - Eye Exam Eye Exam: EOMI, Normal appearance Pupil Exam: NORMAL ACCOMODATION - ENT Exam ENT Exam: Mucous Membranes Moist, Normal External Ear Exam - Neck Exam Neck Exam: Full ROM. absent: Meningismus - Respiratory Exam Respiratory Exam: NORMAL BREATHING PATTERN. absent: Respiratory Distress - Cardiovascular Exam Cardiovascular Exam: REGULAR RHYTHM, +S1, +S2 - GI/Abdominal Exam GI & Abdominal Exam: Distended, Tenderness, Normal Bowel Sounds - Extremities Exam Extremities Exam: Normal Capillary Refill, Pedal Edema. absent: Calf Tenderness - Back Exam Back Exam: Full ROM. absent: CVA tenderness (L), CVA tenderness (R), vertebral tenderness - Neurological Exam Neurological Exam: Alert, Awake, Oriented x3 - Psychiatric Exam Psychiatric exam: Normal Affect, Normal Mood - Skin Skin Exam: Dry, Normal Color, Warm Assessment and Plan - Assessment and Plan (Free Text) Assessment: This is a 66 year old male with pmh of DM II, CKD, DVT , Prostate Cancer with metastatic disease to the abdomen and vertebrae, s/p radiation therapy in the past, who presents to the ED with abdominal pain and bilateral lower extremity swelling getting progressively worse for the last 5 days along with acute on chronic lumbosacral back pain. He complains of constipation and no BM x 10 days. Labs done in ED showed Hyperkalemia and worsening of his CKD. Amos cath placed in ED = drained 1400ml urine. CT of abdomen :1. Severe constipation and fecal impaction. This is worse than that seen previously. This likely accounts for a greater degree of abdominal distension. 2. Stable abdominal retroperitoneal and pelvic adenopathy. 3. Stable osseous metastatic disease. 4. Resolution of left pleural effusion and left lower lobe infiltrate 1. Acute on chronic renal failure with hyperkalemia - BUN/CR 117/2.8 now Crea 2.3 - Obstructive uropathy due to prostate cancer vs prerenal azotemia secondary to dehydration and poor po intake- case discussed with Dr Mayo who felt this was more prerenal - Urinary catheter placed drained 1400ml urine - Hold ARB, HCTZ, torsemide. - Nephro consult appreciated - Plasma and urine electrophoresis was not elevated on last admission. - Patient very likely has recurrence of prostatic cancer. There is also a renal mass known from previous admission suspicious for concomitant renal carcinoma, although patient will need further workup as an outpatient 2. Acute on chronic back pain and radiculopathy secondary to metastatic disease of the spine From last admission: MRI showed Multilevel thoracic metastases throughout the vertebral bodies as discussed above primarily at the mid to inferior levels in a mixed pattern. Extensive restrained lymphadenopathy is appreciated in the upper abdomen anterior to the inferior thoracic and upper lumbar levels as discussed above. Small central disc herniation at T 910 results in limited central canal stenosis and impinges ventral nerve roots likely, without cord deformity. . Gross L3 compression fracture and heterogeneous Marrow pattern suggestive of pathological origin resulting in severe central stenosis at the L3 level, moderate L3-4 and mild at L2-3 as discussed above. There is likely diffuse metastasis throughout the lumbar spine. Further characterization by PET-CT or whole-body nuclear bone scan can be performed for global skeletal evaluation. Extensive retroperitoneal lymphadenopathy is identified. Consider follow-up abdomen pelvis CT with contrast for added detail. - Patient not a candidate for kyphoplasty based on MRI findings UPEP , SPEP - not elevated PSA 1500 Patient was encouraged to go back to his Urologist on last admission as he needs close follow up with his own oncologist; he was told to follow up there for Leuprolide therapy - continue home pain medications - no saddle anesthesia 3. Hyperkalemia given D50 and Insulin and calcium Gluconate and kayexelate given in ED K=5.8 4. Fecal Impaction likely sec to Opiates - started Lactulose, Colace , Senna - pt also received Dulcolax suppository - Tap water enema 5. ? Urinary Retention prob sec to opiates in pt with Prostate CA - Amos placed - will d/c and check for residuals, retention might resolve after pt's fecal impaction resolves - start Floamx and Proscar 6. Type 2 DM with neuropathy - Restart home insulin- increase Levemir to 25 units bid - insulin sliding scale - Continue Gabapentin 300 mg po TID 7. Hypothyroidism - Continue Synthroid 8. Hyperlipidemia - Continue statin 9. Essential hypertension - continue Norvasc - Hold diuretics due to BOO 10. hx of DVT on Eliquis for life 11. Metastatic Prostate CA - ff up with own Urologist and Oncologist - may need to be restarted on LUprona dn Radiotx 12. ? Renal Mass needs further work up as outpt all of these explained to and patient with help of a foreign language interpreter DVT prophylaxis - Eliquis
--- NOTE | 2017-12-07 05:34 | CON ---
DATE: 12/06/2017 RENAL CONSULTATION LOCATION: The patient is located in room number 404, bed 2. CONSULTATION REQUESTED BY: Elie Caicedo DO REASON FOR CONSULTATION: Acute renal failure and hyperkalemia for further evaluation. HISTORY OF PRESENT ILLNESS: Mr. Crain is a 66-year-old male with a past medical history significant for type 2 diabetes, chronic kidney disease, DVT, prostate cancer with a metastatic disease to the abdomen and vertebrae status post radiation therapy in the past, who presented to the Emergency Room with abdominal pain and bilateral lower extremity swelling increasing progressively and worse for the last 5 days prior to the admission and also lower back pain. The patient was treated for prostate CA at [facility] and was diagnosed 11 years ago. In the Emergency Room, the patient was found to have elevated BUN and creatinine and hyperkalemia and obstructive uropathy was suspected and status post Amos catheter placement. The patient was given 50 insulin, calcium equivalent Kayexalate in Emergency Room yesterday. The patient is feeling slightly better, not in distress. Denies any chest pain. Denies any shortness of breath. Denies fever, chills, nausea, vomiting, diarrhea, or headache. PAST MEDICAL HISTORY: Significant for type 2 diabetes, CKD, DVT, prostate CA of the metastasis to the vertebrae. PAST SURGICAL HISTORY: Status post radiation therapy and status post hernia repair. ALLERGIES: NO KNOWN DRUG ALLERGIES. SOCIAL HISTORY: Denies any smoking, alcohol or drug. PERSONAL HISTORY: He is and has 3 children. FAMILY HISTORY: Not significant. CURRENT MEDICATIONS: Include as follows: Colace 100 mg p.o. b.i.d., Decadron 4 mg p.o. daily, DuoNeb inhaler 3 mL every 6 hours, Eliquis 5 mg p.o. every 12 hours, lactulose 20 g p.o. every 12 hours, Flexeril 10 mg p.o. every 8 hours, Flomax 0.4 mg p.o. daily, Humalog sliding scale, Levemir 25 units subcutaneous b.i.d, Lipitor 20 mg p.o. at bedtime, gabapentin 300 mg p.o. t.i.d., Norvasc 5 mg daily, oxycodone 10 mg p.o. every 12 hours, Proscar 5 mg daily, Protonix 20 mg p.o. daily, Senokot p.o. at bedtime, and levothyroxine 175 mcg p.o. daily. REVIEW OF SYSTEMS: Significant for bilateral leg swelling and lower back pain. PHYSICAL EXAMINATION: VITAL SIGNS: This morning blood pressure of 136/88, pulse of 81, respirations of 20, temperature of 97.9, and oxygen saturation of 98%. Height is 5 feet 7 inches and weight is 180 pounds. GENERAL: Mr. Crain is a 66-year-old male, moderately built and moderately nourished, not in any acute distress. HEENT: Pupils are normally reactive to light and accommodation. Conjunctivae are pink. Sclerae are anicteric. Tongue is moist. Trachea is midline. LUNGS: Symmetric on both sides. Bilateral breath sounds present. Clear to auscultation. CARDIOVASCULAR SYSTEM: [place] at the fifth intercostal space in the midclavicular line. S1 and S2 audible. No murmur or gallop. ABDOMEN: Normal in appearance, soft, tympanic, and distended. No guarding. No rigidity. No hepatosplenomegaly. CENTRAL NERVOUS SYSTEM: The patient is alert, awake, and oriented x3. Nonfocal neuro examination. Cranial nerves II through XII grossly within normal limits. Sensory and motor system is within normal limits. EXTREMITIES: No cyanosis. No clubbing. No edema. LABORATORY DATA: Include as follows; as of 12/06/2017, WBC of 10, hemoglobin of 9.5, hematocrit of 28.4, and platelets of 240. Sodium of 139, potassium of 4.7, chloride of 199, CO2 of 25, BUN of 100, creatinine of 2.3, glucose of 259, calcium of 9.3, total bilirubin of 0.3, AST of 24, ALT of 242, and alkaline phosphatase of 111. Total protein of 6.5 and albumin of 3.3. On admission, 12/05/2017, WBC of 10.7, hemoglobin of 10.5, hematocrit of 32.4, and platelets of 274. Sodium of 139, potassium of 5.8, chloride of 96, CO2 of 26, BUN of 170, creatinine of 2.8, glucose of 266, calcium of 9.7, and uric acid is 9.9. Troponin is 0.012 and pro-BNP is 128. Other laboratory data, chest x-ray as of 12/05/2017 no active disease, no significant interval change compare to the prior examination. Extremity Doppler: No evidence of DVT. CT of the abdomen and pelvis as of 12/05/2017, a small pulmonary nodule at the lung base unchanged, resolution of the left pleural effusion and improved aeration and the visualized lower lung lucas and severe constipation and fecal impaction this is worse than that seen previously and is likely going for a greater degree of abdominal distention. Stable abdominal retroperitoneal and pelvic lymphadenopathy, stable osseous metastatic disease. Resolution of the left pleural effusion and left lower lobe infiltrate. Spleen is unremarkable, pancreas is unremarkable, gallbladder is unremarkable, liver unremarkable, no gross lesions or ductal dilatation. Kidneys and ureters are unremarkable. No hydronephrosis and no solid mass. ASSESSMENT: In summary, Mr. Crain is a 66-year-old elderly male with a history of type 2 diabetes, chronic kidney disease, metastatic prostate cancer, status post radiation therapy, chronic kidney disease, hyperlipidemia, and hyperthyroidism who was admitted with bilateral lower extremity swelling and lower back pain. 1. Metastatic prostate cancer. 2. Chronic kidney disease. 3. Hyperkalemia most likely secondary to worsening renal function and cannot rule out obstructive uropathy. PLAN: Continue IV fluids, half-normal saline at 70 mL per hours. Continue to monitor BMP and continue analgesic as needed. We will follow with you. Thank you for allowing me to participate in your patient's care. Increased azotemia is most likely secondary to steroids. Case discussed with in rounds. Soraya Skinner MD
[2017-12-07] MEDS: Levothyroxine 175 MCG TAB PO SCH (06:50)
[2017-12-07 08:09] VITALS: RESP 20
[2017-12-07] MEDS: Insulin Lispro (humaLOG) 100 Units/ml Inj SC SCH ×2 (08:20→12:29)
[2017-12-07] MEDS: Insulin Detemir 100 Units/ml Inj SC SCH (08:22)
[2017-12-07] MEDS: Pantoprazole 20 mg EC Tab PO SCH (08:24)
--- NOTE | 2017-12-07 08:50 | CP.PCM.PN ---
Subjective - Date & Time of Evaluation Date of Evaluation: 12/07/17 Time of Evaluation: 08:49 - Subjective Subjective: pt is seen and examined, follow up consult is dictated #[id number] check bmp Objective - Vital Signs/Intake and Output Vital Signs (last 24 hours): Temp Pulse Resp BP Pulse Ox 97.6 F 74 20 132/70 99 12/07/17 08:08 12/07/17 08:23 12/07/17 08:08 12/07/17 08:23 12/07/17 08:08 - Medications Medications: Current Medications Albuterol/Ipratropium (Duoneb 3 Mg/0.5 Mg (3 Ml) Ud) 3 ml INH RQ6 PRN PRN Reason: Shortness of Breath Amlodipine Besylate (Norvasc) 5 mg PO DAILY [facility] Last Admin: 12/07/17 08:23 Dose: 5 mg Apixaban (Eliquis) 5 mg PO Q12 [facility] PRN Reason: Protocol Last Admin: 12/07/17 08:17 Dose: 5 mg Atorvastatin Calcium (Lipitor) 20 mg PO HS [facility] Last Admin: 12/06/17 21:32 Dose: 20 mg Cyclobenzaprine HCl (Flexeril) 10 mg PO Q8 PRN PRN Reason: Muscle spasm Dexamethasone (Decadron) 4 mg PO DAILY [facility] Last Admin: 12/07/17 08:17 Dose: 4 mg Docusate Sodium (Colace) 100 mg PO BID [facility] Last Admin: 12/06/17 16:53 Dose: 100 mg Finasteride (Proscar) 5 mg PO DAILY [facility] Last Admin: 12/07/17 08:23 Dose: 5 mg Gabapentin (Neurontin) 300 mg PO TID [facility] Last Admin: 12/07/17 08:23 Dose: 300 mg Insulin Detemir (Levemir) 25 units SC BID@0900,2100 [facility] Last Admin: 12/07/17 08:22 Dose: 25 units Insulin Human Lispro (Humalog) 0 units SC ACCU-CHECK [facility] PRN Reason: Protocol Last Admin: 12/07/17 08:20 Dose: 3 units Lactulose (Enulose) 20 gm PO Q12 [facility] Last Admin: 12/07/17 08:17 Dose: 20 gm Levothyroxine Sodium (Synthroid) 175 mcg PO DAILY@0630 [facility] Last Admin: 12/07/17 06:50 Dose: 175 mcg Oxycodone HCl (Oxycodone Immediate Release Tab) 10 mg PO Q12 PRN PRN Reason: Pain, severe (8-10) Last Admin: 12/06/17 12:10 Dose: 10 mg Pantoprazole Sodium (Protonix Ec Tab) 20 mg PO DAILY [facility] Last Admin: 12/07/17 08:24 Dose: 20 mg Sennosides (Senokot Tab) 25.[address] [facility] Last Admin: 12/06/17 21:33 Dose: 25.8 mg Tamsulosin HCl (Flomax) 0.4 mg PO DAILY [facility] Last Admin: 12/07/17 08:18 Dose: 0.4 mg - Labs Labs: 12/06/17 04:20 12/06/17 07:20
[2017-12-07 11:29] LABS: CALCIUM 9.5 mg/dL (8.4-10.2)
[2017-12-07 13:32] VITALS: BP 128/70; PULSE 79; TEMP 98; O2SAT 98
--- NOTE | 2017-12-07 14:19 | CP.PCM.DIS ---
Provider - Provider Date of Admission: 12/05/17 17:10 Attending physician: Elie Caicedo DO Primary care physician: Dr. Shaik Oliveira Consults: Nephrology consult Time Spent in preparation of Discharge (in minutes): 15 Hospital Course - Lab Results Lab Results: Micro Results 12/05/17 19:00 Urine,Mccormack Urine Culture - Final Klebsiella Pneumoniae Ssp Pneu Most Recent Lab Values WBC 10.0 K/uL (4.8-10.8) 12/06/17 04:20 RBC 3.18 Mil/uL (4.40-5.90) L 12/06/17 04:20 Hgb 9.5 g/dL (12.0-18.0) L 12/06/17 04:20 Hct 28.4 % (35.0-51.0) L 12/06/17 04:20 MCV 89.3 fl (80.0-94.0) 12/06/17 04:20 MCH 29.8 pg (27.0-31.0) 12/06/17 04:20 MCHC 33.3 g/dL (33.0-37.0) 12/06/17 04:20 RDW 16.4 % (11.5-14.5) H 12/06/17 04:20 Plt Count 240 K/uL (130-400) 12/06/17 04:20 MPV 9.1 fl (7.2-11.7) 12/05/17 16:00 Neut % (Auto) 76.1 % (50.0-75.0) H 12/05/17 16:00 Lymph % (Auto) 8.1 % (20.0-40.0) L 12/05/17 16:00 [place] % (Auto) 12.9 % (0.0-10.0) H 12/05/17 16:00 Eos % (Auto) 2.5 % (0.0-4.0) 12/05/17 16:00 Baso % (Auto) 0.4 % (0.0-2.0) 12/05/17 16:00 Neut # (Auto) 8.1 K/uL (1.8-7.0) H 12/05/17 16:00 Lymph # (Auto) 0.9 K/uL (1.0-4.3) L 12/05/17 16:00 [place] # (Auto) 1.4 K/uL (0.0-0.8) H 12/05/17 16:00 Eos # (Auto) 0.3 K/uL (0.0-0.7) 12/05/17 16:00 Baso # (Auto) 0.0 K/uL (0.0-0.2) 12/05/17 16:00 Neutrophils % (Manual) 74 % (42-75) 12/05/17 16:00 Lymphocytes % (Manual) 7 % (20-50) L 12/05/17 16:00 Reactive Lymphs % 6 % (0-0) H 12/05/17 16:00 Monocytes % (Manual) 6 % (0-10) 12/05/17 16:00 Eosinophils % (Manual) 6 % (0-7) 12/05/17 16:00 Metamyelocytes % 1 % (0-0) H 12/05/17 16:00 Platelet Estimate Normal (NORMAL) 12/05/17 16:00 Plt Clumps, EDTA Present 12/05/17 16:00 Large Platelets Present 12/05/17 16:00 Giant Platelets Present 12/05/17 16:00 Poikilocytosis (manual Slight 12/05/17 16:00 Basophilic Stippling Slight 12/05/17 16:00 Anisocytosis (manual) Slight 12/05/17 16:00 Microcytosis (manual) Slight 12/05/17 16:00 Tear Drop Cells Slight 12/05/17 16:00 Ovalocytes Slight 12/05/17 16:00 Stomatocytes Slight 12/05/17 16:00 Sodium 144 mmol/l (132-148) 12/07/17 10:55 Potassium 4.7 MMOL/L (3.6-5.0) 12/07/17 10:55 Chloride 102 mmol/L (98-107) 12/07/17 10:55 Carbon Dioxide 28 mmol/L (22-30) 12/07/17 10:55 Anion Gap 19 (10-20) 12/07/17 10:55 BUN 79 mg/dl (9-20) H 12/07/17 10:55 Creatinine 2.1 mg/dl (0.8-1.5) H 05/10/18 10:55 Est GFR ( Amer) 39 12/07/17 10:55 Est GFR (Non-Af Amer) 32 12/07/17 10:55 POC Glucose (mg/dL) 207 mg/dL (65-110) H 12/07/17 10:53 Random Glucose 218 mg/dL (75-110) H 12/07/17 10:55 Uric Acid 9.9 mg/Dl (3.5-8.5) H 12/05/17 16:00 Calcium 9.5 mg/dL (8.4-10.2) 12/07/17 10:55 Total Bilirubin 0.2 mg/dl (0.2-1.3) 12/06/17 07:20 AST 24 U/L (17-59) 12/06/17 07:20 ALT 42 U/L (21-72) 12/06/17 07:20 Alkaline Phosphatase 111 U/L (38-126) 12/06/17 07:20 Troponin I < 0.0120 ng/mL (0.00-0.120) 12/05/17 16:00 NT-Pro-B Natriuret Pep 128 pg/ml (0-900) 12/05/17 16:00 Total Protein 6.5 G/DL (6.3-8.2) 12/06/17 07:20 Albumin 3.3 g/dL (3.5-5.0) L 12/06/17 07:20 Globulin 3.2 gm/dL (2.2-3.9) 12/06/17 07:20 Albumin/Globulin Ratio 1.0 (1.0-2.1) 12/06/17 07:20 - Hospital Course Hospital Course: 66 year old male with PMH of DM II, CKD, DVT , Prostate Cancer with metastatic disease to the abdomen and vertebrae, s/p radiation therapy in the past, presented to the ED with abdominal pain and bilateral lower extremity swelling getting progressively worse for the last 5 days along with acute on chronic lumbosacral back pain. He complains of constipation and no BM x 10 days. Labs done in ED showed Hyperkalemia and worsening of his CKD BUN/Cr 117/2.8 Mccormack cath placed in ED = drained 1400ml urine. CT of abdomen showed 1. Severe constipation and fecal impaction. This is worse than that seen previously. This likely accounts for a greater degree of abdominal distension. 2. Stable abdominal retroperitoneal and pelvic adenopathy. 3. Stable osseous metastatic disease. 4. Resolution of left pleural effusion and left lower lobe infiltrate Patient was placed under observation in telemetry for acute omn Chronic renal failure and intractable abdominal pain He was started on stool softener regiment with fleet enema, lactulose, Colace with large BM evacuation and resolution of abdominal pain Started on Flomax and Proscar for urinary retention after Mccormack placement. Able to void freely after Mccormack removal with improvement of his kidney function from 117/2.8 --- 79 / 2.1 Patient at present is hemodynamically stable . Abdominal pain resolved and able to void freely . Will discharge patient home and advise to follow up with PMD and his oncologist 1. Acute on chronic renal failure with hyperkalemia most likely a combination of obstructive uropathy on prerenal azotemia improved Able to void freely after Mccormack removal BUN/CR improved from 117/2,.8 -- 79/2.1 Continue Proscar and Flomax nephro consult was appreciated Patient very likely has recurrence of prostatic cancer. There is also a renal mass known from previous admission suspicious for concomitant renal carcinoma, although patient will need further workup as an outpatient 2. Acute on chronic back pain and radiculopathy secondary to metastatic disease of the spine From last admission: MRI showed Multilevel thoracic metastases throughout the vertebral bodies as discussed above primarily at the mid to inferior levels in a mixed pattern. Extensive restrained lymphadenopathy is appreciated in the upper abdomen anterior to the inferior thoracic and upper lumbar levels as discussed above. Small central disc herniation at T 910 results in limited central canal stenosis and impinges ventral nerve roots likely, without cord deformity. . Gross L3 compression fracture and heterogeneous Marrow pattern suggestive of pathological origin resulting in severe central stenosis at the L3 level, moderate L3-4 and mild at L2-3 as discussed above. There is likely diffuse metastasis throughout the lumbar spine. Further characterization by PET-CT or whole-body nuclear bone scan can be performed for global skeletal evaluation. Extensive retroperitoneal lymphadenopathy is identified. Consider follow-up abdomen pelvis CT with contrast for added detail. Patient not a candidate for kyphoplasty based on MRI findings UPEP , SPEP - not elevated PSA 1500 Patient was encouraged to go back to his Urologist and oncologist on last admission as he needs close follow up with his own oncologist; he was told to follow up there for Leuprolide therapy continue home pain medications no saddle anesthesia 3. Hyperkalemia given D50 and Insulin and calcium Gluconate and kayexelate given in ED K=5.8 4. Fecal Impaction likely sec to Opiates started Lactulose, Colace , Senna with improvement pt also received Dulcolax suppository 5. ? Urinary Retention prob sec to opiates in pt with Prostate CA resolved and voiding freely after mccormack removal Continue Flomax and Proscar 6. Type 2 DM with neuropathy Levemir to 25 units bid Continue Gabapentin 300 mg po TID 7. Hypothyroidism Continue Synthroid 8. Hyperlipidemia Continue statin 9. Essential hypertension controlled continue Norvasc Hold diuretics due to BOO 10. hx of DVT on Eliquis for life 11. Metastatic Prostate CA ff up with own Urologist and Oncologist may need to be restarted on LUpron and Radiotx 12. ? 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 absent: Rales, Rhonchi, Wheezes - Cardiovascular Exam Cardiovascular Exam: REGULAR RHYTHM, RRR, +S1, +S2. absent: JVD - GI/Abdominal Exam GI & Abdominal Exam: Normal Bowel Sounds, Soft. absent: Distended, Guarding, Rebound, Tenderness - Rectal Exam Rectal Exam: Deferred - Extremities Exam Extremities exam: normal capillary refill, normal inspection, pedal pulses present - Back Exam Back exam: NORMAL INSPECTION - Neurological Exam Neurological exam: Alert, CN II-XII Intact - Psychiatric Exam Psychiatric exam: Normal Affect - Skin Skin Exam: Dry, Normal Color, Warm Discharge Plan - Discharge Medications Prescriptions: Docusate [Colace] 100 mg PO BID #60 cap - Follow Up Plan Condition: IMPROVED Disposition: HOME/ ROUTINE Patient education suggested?: Yes Instructions: Acute Kidney Failure (DC), Urinary Obstruction (DC), Prostate Cancer (DC) Additional Instructions: follow up with pmd and oncologist in 1 week follow up with urologist in 1 week Referrals: Shaik Oliveira MD [Medical Doctor] - Madeline Skinner MD [Staff Provider] -
--- NOTE | 2017-12-08 09:47 | PN ---
DATE: 12/07/2017 FOLLOWUP RENAL CONSULTATION LOCATION: Patient is located in room 404, bed 2. REASON FOR FOLLOWUP: Acute renal failure, chronic kidney disease and for further evaluation. SUBJECTIVE: Mr. Crain is a 66-year-old elderly male with a past medical history significant for type 2 diabetes, chronic kidney disease, metastatic prostate CA with chronic kidney disease who was admitted with chief complaints of bilateral leg swelling and back pain and also found to have increased potassium and renal failure. Patient is feeling slightly better today, not in acute distress. Denies any headache, dizziness. Denies any chest pain, palpitation. Denies any fever or cough. Patient has a good bowel movement, not in acute distress. OBJECTIVE: VITAL SIGNS: This morning as follows; blood pressure 132/70, pulse 74, respirations about 20, temperature 98, saturation 98%. Height 5 feet 7 inches, weight is 180 pounds. GENERAL: Mr. Crain is a 66-year-old elderly male moderately built, moderate nourished, not in acute distress. HEENT: Pupils normal, reactive to light and accommodation. Conjunctivae pink. Sclerae anicteric. Tongue is moist. Trachea is midline. LUNGS: Symmetric on both sides. Bilateral breath sound is present. Clear to auscultation. CVS: [place] at the fifth intercostal space, midclavicular line. S1 and S2 audible. No murmur or gallop. ABDOMEN: Slightly distended and soft, tympanic. No guarding. No rigidity. No hepatosplenomegaly. 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 Nonfocal neuro examination. Cranial nerves II-XII grossly intact. Sensory and motor system is within normal limits. EXTREMITIES: No cyanosis, no clubbing. The patient has 1 to 2+ edema in both lower extremities. CURRENT MEDICATIONS: Include as follows; Eliquis 5 mg p.o. every 12 hours, lactulose 30 mL p.o. every 12 hours, oxycodone 10 mg p.o. every 12 hours, Norvasc 5 mg daily, Flomax 0.4 mg p.o. daily, Senokot 25.8 mg p.o. at bedtime, Crestor 10 mg at bedtime, omeprazole 20 mg p.o. daily, levothyroxine 175 mcg p.o. daily, Lantus 25 units subcu b.i.d., Neurontin 300 mg p.o. t.i.d., Flexeril 10 mg p.o. every 8 hours, and Colace 100 mg p.o. b.i.d. LABORATORY DATA: Include as follows; as of 12/07/2017; sodium 144, potassium 4.7, chloride 102, CO2 of 28, BUN 79, creatinine 2.1, glucose 218, calcium 9.5, and urine culture is positive for Klebsiella pneumonia. IMPRESSION: In summary, Mr. Crain is a 66-year-old elderly male with history of hypertension, diabetes, prostate cancer, chronic kidney disease, deep venous thrombosis and metastatic prostate cancer, who was admitted with abdominal distention, bilateral leg swelling and lower back pain, increased BUN and creatinine, and hyperkalemia. 1. Acute renal failure on chronic kidney disease. 2. Hyperkalemia secondary worsening renal function. 3. Metastatic prostate cancer. 4. Rule out urinary tract infection. PLAN: Continue his current medications. Follow up urine culture and sensitivity report and antibiotics as per sensitivity. We will follow up with you. Thank you for allowing me to participate in your patient's care. Soraya Skinner MD
--- NOTE | 2017-12-08 12:08 | CARD ---
APPROVED REPORT EKG Measurement Heart [id number] <Conclusion> Normal sinus rhythm Normal ECG
== END 2017-12-07 14:00 | disposition home or self-care (01) ==
LOC: H.ER 14:39 → H.ERHOLD 17:10 → INTOOBSV 17:10 → H.TEL 21:04
PROVIDERS: ADMIT Internal Medicine; ATTEND Internal Medicine
DX: K56.41 Fecal impaction (principal); C79.51 Secondary malignant neoplasm of bone; E03.9 Hypothyroidism, unspecified; E11.22 Type 2 diabetes mellitus with diabetic chronic kidney disease; E78.00 Pure hypercholesterolemia, unspecified; E87.5 Hyperkalemia; G89.29 Other chronic pain; N17.9 Acute kidney failure, unspecified; Z86.718 Personal history of other venous thrombosis and embolism; E11.40 Type 2 diabetes mellitus with diabetic neuropathy, unspecified; E78.5 Hyperlipidemia, unspecified; E86.0 Dehydration; C79.89 Secondary malignant neoplasm of other specified sites; Z92.3 Personal history of irradiation; R59.0 Localized enlarged lymph nodes; R91.8 Other nonspecific abnormal finding of lung field; I12.9 Hypertensive chronic kidney disease with stage 1 through stage 4 chronic kidney disease, or unspecified chronic kidney disease; N18.9 Chronic kidney disease, unspecified; M48.56XA Collapsed vertebra, not elsewhere classified, lumbar region, initial encounter for fracture; Z85.46 Personal history of malignant neoplasm of prostate
CPT/HCPCS: 36415; 71045; 74176; 80048; 80053; 82948; 83880; 84484; 84550; 85025; 85027; 87086; 87181; 93970; 96365; 96374; 99285; G0378; J0610; J0696; J1940; J7030; J8540

== ENCOUNTER 2017-12-15 14:47 | Observation (INO) | payer MEDICAID, MEDICARE, SELFPAY ==
[2017-12-15 14:48] VITALS: BMI 34.4
--- NOTE | 2017-12-15 16:16 | ED PDOC ---
HPI: General Adult Time Seen by Provider: 12/15/17 15:43 Chief Complaint (Nursing): GI Problem Chief Complaint (Provider): Constipation History Per: Patient History/Exam Limitations: no limitations Onset/Duration Of Symptoms: Days (10x) Current Symptoms Are (Timing): Still Present Additional Complaint(s): 66 year old male with diabetes and prostate cancer presents to the ED complaining of constipation onset 10 days. Reports of taking medication without any relief. PMD: Shaik Oliveira Past Medical History Reviewed: Historical Data, Nursing Documentation, Vital Signs Vital Signs: Last Vital Signs Temp 98.6 F 12/15/17 14:58 Pulse 110 H 12/15/17 16:35 Resp 18 12/15/17 16:35 BP 138/80 12/15/17 16:35 Pulse Ox 97 12/15/17 17:15 - Medical History PMH: Arthritis, Diabetes, Deep Vein Thrombosis, HTN, Hypercholesterolemia, Hypothyroidism, Chronic Kidney Disease Denies: HIV - Surgical History Surgical History: Hernia Repair - Family History Family History: States: Unknown Family Hx - Immunization History Hx Tetanus Toxoid Vaccination: No Hx Influenza Vaccination: Yes Hx Pneumococcal Vaccination: Yes - Home Medications Home Medications: Ambulatory Orders Medication Instructions Recorded Apixaban [Eliquis] 5 mg PO Q12 11/10/17 Levothyroxine Sodium [Synthroid] 175 mcg PO DAILY 11/10/17 Omeprazole 20 mg PO DAILY 11/10/17 Rosuvastatin Calcium [Crestor] 10 mg PO HS 11/10/17 amLODIPine [Norvasc] 5 mg PO DAILY 11/10/17 Gabapentin [Neurontin] 300 mg PO TID #90 cap 11/17/17 Sennosides A and B [Senokot Tab] 25.8 mg PO HS #30 tab 11/17/17 Tamsulosin [Flomax] 0.4 mg PO DAILY #30 cap 11/17/17 Cyclobenzaprine [Flexeril] 10 mg PO Q8 PRN 12/05/17 Lactulose [Generlac] 30 ml PO Q12 PRN 12/05/17 oxyCODONE [oxyCODONE Immediate 10 mg PO Q12 PRN 12/05/17 Release Tab] Docusate [Colace] 100 mg PO BID #60 cap 12/06/17 Insulin Glargine, Recombina 25 unit SQ BID #0 12/06/17 [Lantus] - Allergies Allergies/Adverse Reactions: Allergies Allergy/AdvReac Type Severity Reaction Status Date / Time No Known Allergies Allergy Verified 12/05/17 14:48 Review of Systems ROS Statement: Except As Marked, All Systems Reviewed And Found Negative Gastrointestinal: Positive for: Constipation Physical Exam - Reviewed Nursing Documentation Reviewed: Yes Vital Signs Reviewed: Yes - Physical Exam Appears: Positive for: Well, Non-toxic, No Acute Distress Head Exam: Positive for: ATRAUMATIC, NORMAL INSPECTION, NORMOCEPHALIC Skin: Positive for: Normal Color, Warm, Dry Eye Exam: Positive for: EOMI, Normal appearance, PERRL ENT: Positive for: Normal ENT Inspection Neck: Positive for: Normal, Painless ROM, Supple. Negative for: Decreased ROM Cardiovascular/Chest: Positive for: Regular Rate, Rhythm. Negative for: Murmur Respiratory: Positive for: Normal Breath Sounds. Negative for: Decreased Breath Sounds, Accessory Muscle Use, Respiratory Distress Gastrointestinal/Abdominal: Positive for: Normal Exam, Bowel Sounds, Soft, Hernia (reducible ventral ). Negative for: Tenderness, Guarding, Rebound Back: Positive for: Normal Inspection. Negative for: L CVA Tenderness, R CVA Tenderness Extremity: Positive for: Normal ROM. Negative for: Tenderness, Pedal Edema, Deformity Neurologic/Psych: Positive for: Alert, Oriented (x3). Negative for: Motor/ Sensory Deficits - Laboratory Results Result Diagrams: 12/15/17 16:47 12/15/17 16:47 - ECG O2 Sat by Pulse Oximetry: 97 (RA) Pulse Ox Interpretation: Normal Medical Decision Making Medical Decision Making: Time: 155 Initial Impression: Constipation Initial Plan: --EKG --CMP --ED Urine Dipstick --CBC W/ Differential --PTT --Prothrombin Time --Abdomen w/ Chest [RAD] --Glucose, Blood, POC --Reevaluation Time: 1657 ABDOMEN W/ CHEST [RAD] RESULTS FINDINGS: BOWEL: Distended colon. Constipation without fecal impaction or obstruction. BONES: Normal. OTHER FINDINGS: Single-view chest: No active pulmonary disease. No radiographic findings to suggest acute or significant cardiovascular disease. IMPRESSION: Colonic distension, constipation. No free air visualized. Scribe Attestation: Documented by Gilberto Luke, acting as a scribe for Jen Isabel MD Provider Scribe Attestation: All medical record entries made by the Scribe were at my direction and personally dictated by me. I have reviewed the chart and agree that the record accurately reflects my personal performance of the history, physical exam, medical decision making, and the department course for this patient. I have also personally directed, reviewed, and agree with the discharge instructions and disposition. Time: 1823 Plan: -- CT Abd & Pelvis w/o PO or IV Contrast Scribe Attestation: Documented by Pedro Alejandra, acting as a scribe for Dr. Jen Isabel MD. Provider Scribe Attestation: All medical record entries made by the Scribe were at my direction and personally dictated by me. I have reviewed the chart and agree that the record accurately reflects my personal performance of the history, physical exam, medical decision making, and the department course for this patient. I have also personally directed, reviewed, and agree with the discharge instructions and disposition. Disposition - Disposition Condition: STABLE Forms: Tyk[employer] (Namibian)
[2017-12-15] MEDS ORDERED: Sodium Chloride 0.9% 1,000 ML IV STA (16:47)
--- NOTE | 2017-12-15 16:59 | RAD ---
HISTORY: Constipation COMPARISON: No prior. FINDINGS: BOWEL: Distended colon. Constipation without fecal impaction or obstruction. BONES: Normal. OTHER FINDINGS: Single-view chest: No active pulmonary disease. No radiographic findings to suggest acute or significant cardiovascular disease. IMPRESSION: Colonic distension, constipation. No free air visualized.
[2017-12-15 17:00] LABS: BASO # 0.1 K/uL (0.0-0.2); BASO % 1.3 % (0.0-2.0); EOS # 0.4 K/uL (0.0-0.7); EOS % 4.2 % (0.0-4.0); HEMOGLOBIN 10.2 g/dL (12.0-18.0); LYMPH # 1.6 K/uL (1.0-4.3); MEAN CELL VOLUME 90.7 fl (80.0-94.0); MEAN CORPUSCULAR HEMOGLOBIN 29.6 pg (27.0-31.0); MEAN CORPUSCULAR HGB CONC 32.6 g/dL (33.0-37.0); MEAN PLATELET VOLUME 8.6 fl (7.2-11.7); MONO # 0.9 K/uL (0.0-0.8); MONO % 9.2 % (0.0-10.0); NEUT # 6.4 K/uL (1.8-7.0); NEUT % 68.3 % (50.0-75.0); RBC 3.43 Mil/uL (4.40-5.90); RED CELL DISTRIBUTION WIDTH 16.6 % (11.5-14.5); WHITE BLOOD COUNT 9.4 K/uL (4.8-10.8)
[2017-12-15 17:11] LABS: ALBUMIN 3.7 g/dL (3.5-5.0); CALCIUM 9.6 mg/dL (8.4-10.2)
[2017-12-15 17:16] LABS: ALB/GLOB RATIO 1.1 (1.0-2.1)
[2017-12-15 17:48] LABS: SQUAMOUS EPITHIAL 1 /hpf (0-5); URINE BACTERIA MANY (<OCC); URINE BILIRUBIN NEGATIVE (NEGATIVE); URINE BLOOD NEGATIVE (NEGATIVE); URINE CLARITY CLOUDY (Clear); URINE COLOR YELLOW (YELLOW); URINE GLUCOSE (UA) 50 mg/dL (Normal); URINE LEUKOCYTE ESTERASE LARGE Leu/uL (Negative); URINE PROTEIN 30 mg/dL (NEGATIVE); URINE UROBILINOGEN 0.2-1.0 mg/dL (0.2-1.0); WBC CLUMPS FEW /hpf
[2017-12-15 18:26] LABS: PROTHROMBIN TIME 12.6 Seconds (9.8-13.1)
[2017-12-15 18:27] LABS: INR 1.1 (0.9-1.2); PARTIAL THROMBOPLASTIN TIME 31.2 Seconds (25.6-37.1)
--- NOTE | 2017-12-15 20:20 | CT ---
EXAM: CT Abdomen and Pelvis Without Intravenous Contrast EXAM DATE/TIME: 12/15/2017 6:24 PM CLINICAL HISTORY: 66 years old, male; Signs and symptoms; Constipation; Prior surgery; Surgery date: 6+ months; Surgery type: Hernia repair; Patient HX: Prostate ca. TECHNIQUE: Axial computed tomography images of the abdomen and pelvis without intravenous contrast. All CT scans at this facility use one or more dose reduction techniques, viz.: automated exposure control; ma/kV adjustment per patient size (including targeted exams where dose is matched to indication; i.e. head); or iterative reconstruction technique. Coronal and sagittal reformatted images were created and reviewed. COMPARISON: CT - ABD PELVIS W/O PO OR IV CONT 2017-11-16 15:19 FINDINGS: Artifacts: Streak artifact degrades image quality. Motion artifact degrades image quality. Lower thorax: The heart is mildly enlarged. There is scarring at the lung bases. There is nodular pleural thickening. There are multiple small parenchymal pulmonary nodules. ABDOMEN: Liver: unremarkable Gallbladder and bile ducts: unremarkable Pancreas: Pancreas is mildly atrophic. Spleen: unremarkable Adrenals: There is nodular thickening of both adrenals. Kidneys and ureters: unremarkable Stomach and bowel: Stomach is almost empty. Rotation is normal. There is no small bowel obstruction. Ileocecal region is unremarkable. Appendix and terminal ileum are unremarkable.There is a large amount of stool in the colon. PELVIS: Appendix: See stomach and bowel Bladder: Bladder is distended. Reproductive: Prostate is mildly enlarged. There are multiple metallic seeds in the prostate. Seminal vesicles are unremarkable. ABDOMEN and PELVIS: Intraperitoneal space:There is no free air or free fluid. Bones/joints: There is bony metastatic disease with multiple sclerotic lesions. There is pathologic fracture at L3, unchanged. Soft tissues: There is mild body wall edema. Vasculature: There are vascular calcifications. Lymph nodes: There is bulky iliac adenopathy. There is bulky retroperitoneal adenopathy. There is a peripheral pleural adenopathy. IMPRESSION: Bulky adenopathy consistent with metastatic disease; bony metastatic disease; prominent prostate with multiple metallic radiation seeds; constipation; pulmonary nodules consistent with metastases Additional nonemergent findings as described above.
[2017-12-15] MEDS ORDERED: Sod Polystyrene Sulf 15 gm/60 ml Susp PO STA (20:45)
[2017-12-15] MEDS ORDERED: Bisacodyl 5mg EC Tab PO STA (20:48)
[2017-12-15] MEDS ORDERED: Sod Polystyrene Sulf 15 gm/60 ml Susp ONE (20:57)
[2017-12-15] MEDS ORDERED: Ciprofloxacin 400mg/200ml D5W 400 MG/200 ML BAG IVPB STA (21:05)
[2017-12-15] MEDS ORDERED: Ciprofloxacin 400mg/200ml D5W 400 MG/200 ML BAG IVPB ONE (21:13)
--- NOTE | 2017-12-16 00:16 | CT ---
EXAM: CT Head Without Intravenous Contrast EXAM DATE/TIME: 12/15/2017 11:19 PM CLINICAL HISTORY: 66 years old, male; Signs and symptoms; Altered mental status/memory loss; Additional info: Metastatic prostate cancer TECHNIQUE: Axial computed tomography images of the head/brain without intravenous contrast. All CT scans at this facility use one or more dose reduction techniques, viz.: automated exposure control; ma/kV adjustment per patient size (including targeted exams where dose is matched to indication; i.e. head); or iterative reconstruction technique. Coronal and sagittal reformatted images were created and reviewed. COMPARISON: There are no prior studies for comparison. FINDINGS: Artifacts: Streak artifact degrades image quality. Motion artifact degrades image quality. Brain: There is prominence of sulci, gyri and ventricles. There is no midline shift. There are no intra-axial or extra axial mass lesions or areas of hemorrhage. Gutierrez-white differentiation is maintained. Ventricles: See above. Bony structures: Cranial vault is intact. Soft tissues: unremarkable Sinuses: There is no acute sinusitis. Ears and mastoids: Middle ears and mastoids unremarkable. Orbits: Orbital contents are unremarkable. IMPRESSION: Mild atrophy, no acute intracranial abnormality
[2017-12-16] MEDS ORDERED: oxyCODONE 10 mg Immediate Release Tab PO PRN (01:35)
[2017-12-16] MEDS ORDERED: Lactulose 10 gm/15 ml (Rectal Use) PR PRN (01:42)
--- NOTE | 2017-12-16 02:04 | CP.PCM.HP ---
History of Present Illness - History of Present Illness History of Present Illness: PCP: Tee Ballard MD Chief Complaint: Chronic Constipation/ Left lower extremity pain/AMS The Patient was seen and examined in the ED HPI: The patient is a poor historian because of the severe pain. The Hx is obtained from his and after review of the medical records. He is a 66 years old male with hx of DM II, CKD, DVT and 2 years of Chronic back pain with Sciatica, only ambulating with a wheel chair and assistance, last admitted on 12/05/17 and Dx 12/07/17 with Dx of radicular pain to the left thigh secondary to Metastatic disease to the spine. He comes because of constipation for 10 days and the laxative he has is not working. He still has significant pain at the left lower extremity. He refers severe dysuria on trying to urinate. His referred that the patient has intermittent Altered mental Status PMH: Arthritis (back pain, r knee pain), Herneated disc, Spinal stenosis; DVT; , DM 11, HTN, HLD, Hypothyroidism, CKD; BPH; prostate cancer PSH: Umbilical hernia repair SH: Alcohol in the past; No cigarette use; No illegal drug use; live with ; Allergies: NKDA Medication: Reviewed Present on Admission - Present on Admission Any Indicators Present on Admission: No History of DVT/PE: No History of Uncontrolled Diabetes: No Urinary Catheter: No Decubitus Ulcer Present: No Review of Systems - Review of Systems Systems not reviewed;Unavailable: Acuity of Condition (of systems limited) Review of Systems: Review of systems limited because of the poor response from the patient. - Constitutional Constitutional: absent: Fever, Headache - EENT Nose/Mouth/Throat: absent: Epistaxis, Nasal Congestion - Cardiovascular Cardiovascular: Leg Edema. absent: Chest Pain - Respiratory Respiratory: absent: Cough, Dyspnea - Psychiatric Psychiatric: Panic Attacks - Hematologic/Lymphatic Hematologic: absent: Easy Bleeding, Easy Bruising Past Patient History - Infectious Disease Hx of Infectious Diseases: None - Past Medical History & Family History Past Medical History?: Yes - Past Social History Smoking Status: Never Smoked Chewing Tobacco Use: No Cigar Use: No Home Situation {Lives}: With Family - CARDIAC Hx Hypercholesterolemia: Yes Hx Hypertension: Yes - PULMONARY Hx Respiratory Disorders: No - NEUROLOGICAL Hx Neurological Disorder: No - HEENT Hx HEENT Problems: No - RENAL Hx Chronic Kidney Disease: Yes - ENDOCRINE/METABOLIC Hx Hypothyroidism: Yes - HEMATOLOGICAL/ONCOLOGICAL Hx Anemia: Yes Hx Human Immunodeficiency Virus (HIV): No - INTEGUMENTARY Hx Dermatological Problems: No - MUSCULOSKELETAL/RHEUMATOLOGICAL Hx Arthritis: Yes - GASTROINTESTINAL Hx Gastrointestinal Disorders: No - GENITOURINARY/GYNECOLOGICAL Hx Genitourinary Disorders: Yes (prostate ca) Hx Prostate Cancer: Yes - PSYCHIATRIC Hx Psychophysiologic Disorder: No Hx Substance Use: No - SURGICAL HISTORY Hx Surgeries: No Other/Comment: Umbilical hernia repair - ANESTHESIA Hx Anesthesia: Yes Hx Anesthesia Reactions: No Meds Home Medications: Home Medication List Medication Instructions Recorded Confirmed Type Ciprofloxacin [Cipro] 500 mg PO BID #9 tab 12/15/17 Rx Polyethylene Glycol 3350 [Miralax] 1 tbs PO DAILY PRN #1 bottle 12/15/17 Rx Allergies/Adverse Reactions: Allergies Allergy/AdvReac Type Severity Reaction Status Date / Time No Known Allergies Allergy Verified 12/05/17 14:48 Physical Exam - Constitutional Appears: No Acute Distress - Head Exam Head Exam: ATRAUMATIC, NORMAL INSPECTION, NORMOCEPHALIC - Eye Exam Eye Exam: EOMI, PERRL Pupil Exam: NORMAL ACCOMODATION, PERRL - ENT Exam ENT Exam: Mucous Membranes Moist, Normal Exam, Normal External Ear Exam - Neck Exam Neck exam: Positive for: Full Rom, Normal Inspection. Negative for: Lymphadenopathy - Respiratory Exam Respiratory Exam: absent: Rales, Rhonchi, Wheezes - Cardiovascular Exam Cardiovascular Exam: REGULAR RHYTHM, +S1, +S2 - GI/Abdominal Exam GI & Abdominal Exam: absent: Soft Additional comments: obese abdomen, soft mild generalized tenderness, No rebound, no guarding - Rectal Exam Rectal Exam: Deferred - Extremities Exam Extremities exam: Positive for: normal inspection - Neurological Exam Neurological exam: Alert, CN II-XII Intact, Reflexes Normal Additional comments: Oriented to person and place - Psychiatric Exam Psychiatric exam: Flat Affect - Skin Skin Exam: Dry, Intact, Normal Color, Warm Results - Vital Signs Recent Vital Signs: Last Vital Signs Temp 98.7 F 12/16/17 01:37 Pulse 106 H 12/16/17 01:37 Resp 18 12/16/17 01:37 BP 155/78 H 12/16/17 01:37 Pulse Ox 97 12/16/17 01:37 - Labs Result Diagrams: 12/15/17 16:47 12/15/17 16:47 Labs: Laboratory Results - last 24 hr 12/15/17 12/15/17 12/15/17 16:09 16:47 16:47 WBC 9.4 RBC 3.43 L Hgb 10.2 L Hct 31.1 L MCV 90.7 MCH 29.6 MCHC 32.6 L RDW 16.6 H Plt Count 217 MPV 8.6 Neut % (Auto) 68.3 Lymph % (Auto) 17.0 L [place] % (Auto) 9.2 Eos % (Auto) 4.2 H Baso % (Auto) 1.3 Neut # (Auto) 6.4 Lymph # (Auto) 1.6 [place] # (Auto) 0.9 H Eos # (Auto) 0.4 Baso # (Auto) 0.1 PT INR APTT Sodium 139 Potassium 5.3 H Chloride 100 Carbon Dioxide 27 Anion Gap 17 BUN 81 H Creatinine 2.1 H Est GFR ( Amer) 39 Est GFR (Non-Af Amer) 32 POC Glucose (mg/dL) 197 H Random Glucose 191 H Calcium 9.6 Total Bilirubin 0.5 AST 39 ALT 36 Alkaline Phosphatase 118 Total Protein 7.2 Albumin 3.7 Globulin 3.5 Albumin/Globulin Ratio 1.1 Urine Color Urine Clarity Urine pH Ur Specific [place] Urine Protein Urine Glucose (UA) Urine Ketones Urine Blood Urine Nitrate Urine Bilirubin Urine Urobilinogen Ur Leukocyte Esterase Urine RBC (Auto) Urine WBC Clumps (Auto) Urine Microscopic WBC Ur Squamous Epith Cells Urine Bacteria 12/15/17 12/15/17 12/15/17 17:11 17:30 22:06 WBC RBC Hgb Hct MCV MCH MCHC RDW Plt Count MPV Neut % (Auto) Lymph % (Auto) [place] % (Auto) Eos % (Auto) Baso % (Auto) Neut # (Auto) Lymph # (Auto) [place] # (Auto) Eos # (Auto) Baso # (Auto) PT 12.6 INR 1.1 APTT 31.2 Sodium Potassium Chloride Carbon Dioxide Anion Gap BUN Creatinine Est GFR ( Amer) Est GFR (Non-Af Amer) POC Glucose (mg/dL) 135 H Random Glucose Calcium Total Bilirubin AST ALT Alkaline Phosphatase Total Protein Albumin Globulin Albumin/Globulin Ratio Urine Color Yellow Urine Clarity Cloudy Urine pH 6.0 Ur Specific [place] 1.014 Urine Protein 30 Urine Glucose (UA) 50 Urine Ketones Negative Urine Blood Negative Urine Nitrate Negative Urine Bilirubin Negative Urine Urobilinogen 0.2-1.0 Ur Leukocyte Esterase Large Urine RBC (Auto) 4 H Urine WBC Clumps (Auto) Few H Urine Microscopic WBC 363 H Ur Squamous Epith Cells 1 Urine Bacteria Many H - Imaging and Cardiology CT scan - head Status: Image reviewed by me (No inttrea), Report reviewed by me Additional comment: No Intracraneal Abnormalities Chest x-ray Status: Image reviewed by me, Report reviewed by me Additional comment: No active pulmonary disease Abdomen X Ray Additional comment: Colonic Distention constipation Assessment & Plan - Assessment and Plan (Free Text) Assessment: #. Constipation #. Metabolic Encephalopathy #. Renal failure #. Anemia OF chronic #. Hyperkalemia #. Acute on chronic renal failure #. DM with Hyperglycemia #. Metastatic Prostatic disease Plan: 66 years old male with hx of DM II, CKD, DVT and 2 years of Chronic back pain with Sciatica, last admitted on 12/05/17 and Dx 12/07/17 with Dx of radicular pain to the left thigh secondary to Metastatic disease to the spine. He comes because of constipation for 10 days and the laxative he has is not working. His referred that the patient has intermittent Altered mental Status #. Constipation Secondary to Opiodes analgesics - CT abdomen shows constipation - Consult Dr Librado Irving Enema - Senokot/ Dulcolax/ Colace/ Lactulose #. Metabolic Encephalopathy due to the metastatic Prostate Cancer/ Renal failure and dehydration/ Constipation - CT head shows no significant abnormality - Treat all of the Above #. Acute on chronic Renal failure - IV fluids - Follow renal labs #. Anemia OF chronic Disease - follow HB #. Hyperkalemia secondary to Renal failure - follow electrolytes #. DM with Hyperglycemia - Regular insulin sliding scale according to accucheck - Levemir #. Metastatic Prostatic disease - Conservative management #. hypothyroidism - continue Synthroid - TSH #. DVT prophylaxis; no SCD because of hx of DVT #.Code Status: Full - Date & Time Date: 12/16/17 Time: 02:04
[2017-12-16] MEDS: Sodium Chloride 0.9% 1,000 ML IV SCH ×2 (03:11→12:45)
[2017-12-16] MEDS: Levothyroxine 175 MCG TAB PO SCH (05:40)
[2017-12-16] MEDS: Insulin Regular 100 units/ml SC SCH ×4 (07:00→22:23)
[2017-12-16] MEDS ORDERED: Lactulose 10 gm/15 ml (Rectal Use) PR SCH (09:00)
[2017-12-16] MEDS: Ciprofloxacin 400mg/200ml D5W 400 MG/200 ML BAG IVPB SCH ×2 (09:41→22:13)
[2017-12-16] MEDS: Pantoprazole 40 mg EC Tab PO SCH (09:46)
[2017-12-16 10:14] LABS: BASO # 0.1 K/uL (0.0-0.2); BASO % 0.8 % (0.0-2.0); EOS # 0.4 K/uL (0.0-0.7); EOS % 4.9 % (0.0-4.0); HEMOGLOBIN 9.5 g/dL (12.0-18.0); LYMPH # 1.1 K/uL (1.0-4.3); LYMPH % 15.1 % (20.0-40.0); MEAN CELL VOLUME 89.6 fl (80.0-94.0); MEAN CORPUSCULAR HEMOGLOBIN 30.4 pg (27.0-31.0); MEAN CORPUSCULAR HGB CONC 33.9 g/dL (33.0-37.0); MEAN PLATELET VOLUME 8.5 fl (7.2-11.7); MONO # 0.9 K/uL (0.0-0.8); NEUT % 67.2 % (50.0-75.0); NRBC % 0.1 % (0.0-0.0); RBC 3.13 Mil/uL (4.40-5.90); RED CELL DISTRIBUTION WIDTH 16.4 % (11.5-14.5); WHITE BLOOD COUNT 7.4 K/uL (4.8-10.8)
[2017-12-16 10:32] LABS: CALCIUM 9.1 mg/dL (8.4-10.2)
[2017-12-16] MEDS: POLYETHYLENE GLYCOL 3350 17 GM/Dose PACKET PO SCH ×3 (11:15→16:36)
--- NOTE | 2017-12-16 13:40 | CP.PCM.CON ---
<David Matthews - Last Filed: 12/16/17 13:49> History of Present Illness - History of Present Illness History of Present Illness: PGY Initial GI Consult Maximo Crain is a 66 yo M with PMH of DM and hypothyroidism presents complaining of right leg pain, 10 days of constipation. Pt has had multiple admissions for constipation. He has been taking oxycodone at home for chronic back pain due to metastatic disease. He states that he has been taking laxatives at home. His abdominal pain is intermittent, only when he feels the urge to defecate. He denies diarrhea, hematochezia, melena, weight loss, fevers , chills, night sweats, dysuria. He endorses a normal appetite. He reports that he previously had constipation, and had an enema which helped, and is now requesting the same. Throughout the encounter, patient appeared uncomfortable and was irritated that we were not directly addressing his leg pain, and were instead focused on his constipation. Patient reportedly had colonoscopy 5 years ago, and was advised to have repeat colonoscopy after 5 years, but did not recall the findings 12-point ROS was obtained and was negative except as in HPI PMH: DM, HTN, Hypercholesterolemia, Hypothyroidism, CKD, BPH, DVT (Per chart review; patient only endorsed DM and hypothyroidism during encounter) PSH: None Soc: Denies tobacco, alcohol, or illicits FHx: Unknown Past Patient History - Infectious Disease Hx of Infectious Diseases: None - Past Medical History & Family History Past Medical History?: Yes - Past Social History Smoking Status: Never Smoked Chewing Tobacco Use: No Cigar Use: No Home Situation {Lives}: With Family - CARDIAC Hx Hypercholesterolemia: Yes Hx Hypertension: Yes - PULMONARY Hx Respiratory Disorders: No - NEUROLOGICAL Hx Neurological Disorder: No - HEENT Hx HEENT Problems: No - RENAL Hx Chronic Kidney Disease: Yes - ENDOCRINE/METABOLIC Hx Hypothyroidism: Yes - HEMATOLOGICAL/ONCOLOGICAL Hx Anemia: Yes Hx Human Immunodeficiency Virus (HIV): No - INTEGUMENTARY Hx Dermatological Problems: No - MUSCULOSKELETAL/RHEUMATOLOGICAL Hx Arthritis: Yes - GASTROINTESTINAL Hx Gastrointestinal Disorders: No - GENITOURINARY/GYNECOLOGICAL Hx Genitourinary Disorders: Yes (prostate ca) Hx Prostate Cancer: Yes - PSYCHIATRIC Hx Psychophysiologic Disorder: No Hx Substance Use: No - SURGICAL HISTORY Hx Surgeries: No Other/Comment: Umbilical hernia repair - ANESTHESIA Hx Anesthesia: Yes Hx Anesthesia Reactions: No Meds Home Medications: Home Medication List Medication Instructions Recorded Confirmed Type Ciprofloxacin [Cipro] 500 mg PO BID #9 tab 12/15/17 Rx Polyethylene Glycol 3350 [Miralax] 1 tbs PO DAILY PRN #1 bottle 12/15/17 Rx Allergies/Adverse Reactions: Allergies Allergy/AdvReac Type Severity Reaction Status Date / Time No Known Allergies Allergy Verified 12/05/17 14:48 - Medications Medications: Current Medications Amlodipine Besylate (Norvasc) 5 mg PO DAILY [facility] Last Admin: 12/16/17 09:45 Dose: 5 mg Apixaban (Eliquis) 5 mg PO Q12 [facility] PRN Reason: Protocol Last Admin: 12/16/17 09:42 Dose: 5 mg Atorvastatin Calcium (Lipitor) 20 mg PO HS [facility] Cyclobenzaprine HCl (Flexeril) 10 mg PO Q8 PRN PRN Reason: Muscle spasm Gabapentin (Neurontin) 300 mg PO TID [facility] Last Admin: 12/16/17 13:15 Dose: 300 mg Ciprofloxacin (Cipro 400mg/200ml Dsw) 400 mg in 200 mls @ 200 mls/hr IVPB Q12 [facility] PRN Reason: Protocol Last Admin: 12/16/17 09:41 Dose: 200 mls/hr Sodium Chloride (Sodium Chloride 0.9%) 1,000 mls @ 100 mls/hr IV .Q10H [facility] Stop: 12/17/17 02:43 Last Admin: 12/16/17 12:45 Dose: 100 mls/hr Insulin Detemir (Levemir) 25 units SC HS [facility] Insulin Human Regular (Humulin R) 0 units SC ACHS [facility] PRN Reason: Protocol Last Admin: 12/16/17 13:12 Dose: 2 units Lactulose (Enulose) 20 gm PO BID [facility] Last Admin: 12/16/17 10:01 Dose: 20 gm Levothyroxine Sodium (Synthroid) 175 mcg PO DAILY@0630 [facility] Last Admin: 12/16/17 05:40 Dose: 175 mcg Oxycodone HCl (Oxycodone Immediate Release Tab) 10 mg PO Q12 PRN PRN Reason: Pain, severe (8-10) Pantoprazole Sodium (Protonix Ec Tab) 40 mg PO DAILY [facility] Last Admin: 12/16/17 09:46 Dose: 40 mg Polyethylene Glycol (Miralax) 17 gm PO TID [facility] Last Admin: 12/16/17 11:15 Dose: 17 gm Sennosides (Senokot Tab) 25.8 mg PO [facility] Tamsulosin HCl (Flomax) 0.4 mg PO DAILY [facility] Last Admin: 12/16/17 09:43 Dose: 0.4 mg Physical Exam - Constitutional Appears: Well, No Acute Distress, Confused - Head Exam Head Exam: ATRAUMATIC, NORMOCEPHALIC - Eye Exam Eye Exam: Normal appearance - ENT Exam ENT Exam: Mucous Membranes Moist - Respiratory Exam Respiratory Exam: Clear to Auscultation Bilateral, NORMAL BREATHING PATTERN. absent: Prolonged Expiratory Phase, Rales, Rhonchi, Wheezes, Respiratory Distress - Cardiovascular Exam Cardiovascular Exam: REGULAR RHYTHM, +S1, +S2 - GI/Abdominal Exam GI & Abdominal Exam: Distended, Normal Bowel Sounds, Soft. absent: Guarding, Hernia, Organomegaly, Rebound, Rigid - Extremities Exam Extremities exam: Negative for: joint swelling, pedal edema - Neurological Exam Neurological exam: Altered - Psychiatric Exam Psychiatric exam: Normal Affect, Normal Mood - Skin Skin Exam: Dry, Intact, Normal Color, Warm Results - Vital Signs Recent Vital Signs: Last Vital Signs Temp 98 F 12/16/17 12:08 Pulse 95 H 12/16/17 12:08 Resp 18 12/16/17 12:08 BP 131/85 12/16/17 12:08 Pulse Ox 99 12/16/17 12:08 - Labs Result Diagrams: 12/16/17 08:35 12/16/17 08:35 Labs: Laboratory Results - last 24 hr 12/15/17 12/15/17 12/15/17 16:09 16:47 16:47 WBC 9.4 RBC 3.43 L Hgb 10.2 L Hct 31.1 L MCV 90.7 MCH 29.6 MCHC 32.6 L RDW 16.6 H Plt Count 217 MPV 8.6 Neut % (Auto) 68.3 Lymph % (Auto) 17.0 L [place] % (Auto) 9.2 Eos % (Auto) 4.2 H Baso % (Auto) 1.3 Neut # (Auto) 6.4 Lymph # (Auto) 1.6 [place] # (Auto) 0.9 H Eos # (Auto) 0.4 Baso # (Auto) 0.1 PT INR APTT Sodium 139 Potassium 5.3 H Chloride 100 Carbon Dioxide 27 Anion Gap 17 BUN 81 H Creatinine 2.1 H Est GFR ( Amer) 39 Est GFR (Non-Af Amer) 32 POC Glucose (mg/dL) 197 H Random Glucose 191 H Calcium 9.6 Total Bilirubin 0.5 AST 39 ALT 36 Alkaline Phosphatase 118 Total Protein 7.2 Albumin 3.7 Globulin 3.5 Albumin/Globulin Ratio 1.1 Urine Color Urine Clarity Urine pH Ur Specific [place] Urine Protein Urine Glucose (UA) Urine Ketones Urine Blood Urine Nitrate Urine Bilirubin Urine Urobilinogen Ur Leukocyte Esterase Urine RBC (Auto) Urine WBC Clumps (Auto) Urine Microscopic WBC Ur Squamous Epith Cells Urine Bacteria 12/15/17 12/15/17 12/15/17 17:11 17:30 22:06 WBC RBC Hgb Hct MCV MCH MCHC RDW Plt Count MPV Neut % (Auto) Lymph % (Auto) [place] % (Auto) Eos % (Auto) Baso % (Auto) Neut # (Auto) Lymph # (Auto) [place] # (Auto) Eos # (Auto) Baso # (Auto) PT 12.6 INR 1.1 APTT 31.2 Sodium Potassium Chloride Carbon Dioxide Anion Gap BUN Creatinine Est GFR ( Amer) Est GFR (Non-Af Amer) POC Glucose (mg/dL) 135 H Random Glucose Calcium Total Bilirubin AST ALT Alkaline Phosphatase Total Protein Albumin Globulin Albumin/Globulin Ratio Urine Color Yellow Urine Clarity Cloudy Urine pH 6.0 Ur Specific [place] 1.014 Urine Protein 30 Urine Glucose (UA) 50 Urine Ketones Negative Urine Blood Negative Urine Nitrate Negative Urine Bilirubin Negative Urine Urobilinogen 0.2-1.0 Ur Leukocyte Esterase Large Urine RBC (Auto) 4 H Urine WBC Clumps (Auto) Few H Urine Microscopic WBC 363 H Ur Squamous Epith Cells 1 Urine Bacteria Many H 12/16/17 12/16/17 12/16/17 05:11 08:35 08:35 WBC 7.4 RBC 3.13 L Hgb 9.5 L Hct 28.0 L MCV 89.6 MCH 30.4 MCHC 33.9 RDW 16.4 H Plt Count 203 MPV 8.5 Neut % (Auto) 67.2 Lymph % (Auto) 15.1 L [place] % (Auto) 12.0 H Eos % (Auto) 4.9 H Baso % (Auto) 0.8 Neut # (Auto) 5.0 Lymph # (Auto) 1.1 [place] # (Auto) 0.9 H Eos # (Auto) 0.4 Baso # (Auto) 0.1 PT INR APTT Sodium 143 Potassium 4.7 Chloride 102 Carbon Dioxide 30 Anion Gap 16 BUN 66 H Creatinine 1.9 H Est GFR ( Amer) 43 Est GFR (Non-Af Amer) 36 POC Glucose (mg/dL) 97 Random Glucose 79 Calcium 9.1 Total Bilirubin AST ALT Alkaline Phosphatase Total Protein Albumin Globulin Albumin/Globulin Ratio Urine Color Urine Clarity Urine pH Ur Specific [place] Urine Protein Urine Glucose (UA) Urine Ketones Urine Blood Urine Nitrate Urine Bilirubin Urine Urobilinogen Ur Leukocyte Esterase Urine RBC (Auto) Urine WBC Clumps (Auto) Urine Microscopic WBC Ur Squamous Epith Cells Urine Bacteria 12/16/17 11:08 WBC RBC Hgb Hct MCV MCH MCHC RDW Plt Count MPV Neut % (Auto) Lymph % (Auto) [place] % (Auto) Eos % (Auto) Baso % (Auto) Neut # (Auto) Lymph # (Auto) [place] # (Auto) Eos # (Auto) Baso # (Auto) PT INR APTT Sodium Potassium Chloride Carbon Dioxide Anion Gap BUN Creatinine Est GFR ( Amer) Est GFR (Non-Af Amer) POC Glucose (mg/dL) 208 H Random Glucose Calcium Total Bilirubin AST ALT Alkaline Phosphatase Total Protein Albumin Globulin Albumin/Globulin Ratio Urine Color Urine Clarity Urine pH Ur Specific [place] Urine Protein Urine Glucose (UA) Urine Ketones Urine Blood Urine Nitrate Urine Bilirubin Urine Urobilinogen Ur Leukocyte Esterase Urine RBC (Auto) Urine WBC Clumps (Auto) Urine Microscopic WBC Ur Squamous Epith Cells Urine Bacteria Assessment & Plan - Assessment and Plan (Free Text) Assessment: Maximo Crain is a 66 yo M with PMH of DM and hypothyroidism presents complaining of right leg pain, 10 days of constipation Acute on Chronic Constipation Renal mass Hx of prostate Ca Plan: -recommend water enema -start miralax TID -consider Relistor x1 -pain management as per primary team -diet as tolerated -no indication for any GI procedure at this time -continue miralax TID at home, especially on narcotics D/W Dr. Roth <Baltazar Roth - Last Filed: 12/16/17 18:37> Meds - Medications Medications: Current Medications Amlodipine Besylate (Norvasc) 5 mg PO DAILY [facility] Last Admin: 12/16/17 09:45 Dose: 5 mg Apixaban (Eliquis) 5 mg PO Q12 [facility] PRN Reason: Protocol Last Admin: 12/16/17 09:42 Dose: 5 mg Atorvastatin Calcium (Lipitor) 20 mg PO HS [facility] Cyclobenzaprine HCl (Flexeril) 10 mg PO Q8 PRN PRN Reason: Muscle spasm Gabapentin (Neurontin) 300 mg PO TID [facility] Last Admin: 12/16/17 16:37 Dose: 300 mg Ciprofloxacin (Cipro 400mg/200ml Dsw) 400 mg in 200 mls @ 200 mls/hr IVPB Q12 [facility] PRN Reason: Protocol Last Admin: 12/16/17 09:41 Dose: 200 mls/hr Sodium Chloride (Sodium Chloride 0.9%) 1,000 mls @ 100 mls/hr IV .Q10H [facility] Stop: 12/17/17 02:43 Last Admin: 12/16/17 12:45 Dose: 100 mls/hr Insulin Detemir (Levemir) 25 units SC [facility] Insulin Human Regular (Humulin R) 0 units SC ACHS [facility] PRN Reason: Protocol Last Admin: 12/16/17 16:34 Dose: 1 units Lactulose (Enulose) 20 gm PO BID [facility] Last Admin: 12/16/17 16:34 Dose: 20 gm Levothyroxine Sodium (Synthroid) 175 mcg PO DAILY@0630 [facility] Last Admin: 12/16/17 05:40 Dose: 175 mcg Oxycodone HCl (Oxycodone Immediate Release Tab) 10 mg PO Q12 PRN PRN Reason: Pain, severe (8-10) Pantoprazole Sodium (Protonix Ec Tab) 40 mg PO DAILY [facility] Last Admin: 12/16/17 09:46 Dose: 40 mg Polyethylene Glycol (Miralax) 17 gm PO TID [facility] Last Admin: 12/16/17 16:36 Dose: 17 gm Sennosides (Senokot Tab) 25.8 mg PO HS [facility] Tamsulosin HCl (Flomax) 0.4 mg PO DAILY [facility] Last Admin: 12/16/17 09:43 Dose: 0.4 mg Results - Vital Signs Recent Vital Signs: Last Vital Signs Temp 97.4 F L 12/16/17 16:01 Pulse 95 H 05/19/18 16:01 Resp 18 12/16/17 16:01 BP 140/87 12/16/17 16:01 Pulse Ox 99 12/16/17 16:01 - Labs Result Diagrams: 12/16/17 08:35 12/16/17 08:35 Labs: Laboratory Results - last 24 hr 12/15/17 12/15/17 12/16/17 16:09 22:06 05:11 WBC RBC Hgb Hct MCV MCH MCHC RDW Plt Count MPV Neut % (Auto) Lymph % (Auto) [place] % (Auto) Eos % (Auto) Baso % (Auto) Neut # (Auto) Lymph # (Auto) [place] # (Auto) Eos # (Auto) Baso # (Auto) Sodium Potassium Chloride Carbon Dioxide Anion Gap BUN Creatinine Est GFR ( Amer) Est GFR (Non-Af Amer) POC Glucose (mg/dL) 197 H 135 H 97 Random Glucose Calcium 12/16/17 12/16/17 12/16/17 08:35 08:35 11:08 WBC 7.4 RBC 3.13 L Hgb 9.5 L Hct 28.0 L MCV 89.6 MCH 30.4 MCHC 33.9 RDW 16.4 H Plt Count 203 MPV 8.5 Neut % (Auto) 67.2 Lymph % (Auto) 15.1 L [place] % (Auto) 12.0 H Eos % (Auto) 4.9 H Baso % (Auto) 0.8 Neut # (Auto) 5.0 Lymph # (Auto) 1.1 [place] # (Auto) 0.9 H Eos # (Auto) 0.4 Baso # (Auto) 0.1 Sodium 143 Potassium 4.7 Chloride 102 Carbon Dioxide 30 Anion Gap 16 BUN 66 H Creatinine 1.9 H Est GFR ( Amer) 43 Est GFR (Non-Af Amer) 36 POC Glucose (mg/dL) 208 H Random Glucose 79 Calcium 9.1 Attending/Attestation - Attestation I have personally seen and examined this patient.: Yes I have fully participated in the care of the patient.: Yes I have reviewed all pertinent clinical information: Yes Notes (Text): 12/16/17 18:37 66 year old male with opiod induced constipation in the setting of metastatic cancer. REcommend miralax tid, relistor, and enema.
[2017-12-16] MEDS ORDERED: Insulin Detemir 100 Units/ml Inj SC SCH (22:00)
[2017-12-17] MEDS: Sodium Chloride 0.9% 1,000 ML IV SCH (00:06)
[2017-12-17] MEDS: Levothyroxine 175 MCG TAB PO SCH (06:31)
[2017-12-17] MEDS: Insulin Regular 100 units/ml SC SCH ×2 (06:34→13:19)
[2017-12-17 08:03] VITALS: RESP 18
[2017-12-17] MEDS: Pantoprazole 40 mg EC Tab PO SCH (09:11)
[2017-12-17] MEDS: POLYETHYLENE GLYCOL 3350 17 GM/Dose PACKET PO SCH ×2 (09:11→13:12)
[2017-12-17] MEDS: Ciprofloxacin 400mg/200ml D5W 400 MG/200 ML BAG IVPB SCH (09:12)
--- NOTE | 2017-12-17 10:44 | CP.PCM.DIS ---
Provider - Provider Date of Admission: 12/16/17 00:14 Attending physician: Morales Parsons Primary care physician: Dr Juan Pablo Oliveira Consults: GI : DR Roth Time Spent in preparation of Discharge (in minutes): 35 Diagnosis - Discharge Diagnosis (1) Constipation Status: Acute (2) Fecal impaction Status: Acute (3) Acute on chronic renal failure Status: Acute (4) UTI (urinary tract infection) Status: Acute (5) History of prostate cancer Status: Acute (6) DM type 2 (diabetes mellitus, type 2) Status: Chronic (7) History of DVT (deep vein thrombosis) Status: Chronic Hospital Course - Lab Results Lab Results: Micro Results 12/15/17 17:11 Urine,Clean Catch Urine Culture - Final Klebsiella Pneumoniae Ssp Pneu Most Recent Lab Values WBC 7.4 K/uL (4.8-10.8) 12/16/17 08:35 RBC 3.13 Mil/uL (4.40-5.90) L 12/16/17 08:35 Hgb 9.5 g/dL (12.0-18.0) L 12/16/17 08:35 Hct 28.0 % (35.0-51.0) L 12/16/17 08:35 MCV 89.6 fl (80.0-94.0) 12/16/17 08:35 MCH 30.4 pg (27.0-31.0) 12/16/17 08:35 MCHC 33.9 g/dL (33.0-37.0) 12/16/17 08:35 RDW 16.4 % (11.5-14.5) H 12/16/17 08:35 Plt Count 203 K/uL (130-400) 12/16/17 08:35 MPV 8.5 fl (7.2-11.7) 12/16/17 08:35 Neut % (Auto) 67.2 % (50.0-75.0) 12/16/17 08:35 Lymph % (Auto) 15.1 % (20.0-40.0) L 12/16/17 08:35 Tift % (Auto) 12.0 % (0.0-10.0) H 12/16/17 08:35 Eos % (Auto) 4.9 % (0.0-4.0) H 12/16/17 08:35 Baso % (Auto) 0.8 % (0.0-2.0) 12/16/17 08:35 Neut # (Auto) 5.0 K/uL (1.8-7.0) 12/16/17 08:35 Lymph # (Auto) 1.1 K/uL (1.0-4.3) 12/16/17 08:35 Tift # (Auto) 0.9 K/uL (0.0-0.8) H 12/16/17 08:35 Eos # (Auto) 0.4 K/uL (0.0-0.7) 12/16/17 08:35 Baso # (Auto) 0.1 K/uL (0.0-0.2) 12/16/17 08:35 PT 12.6 Seconds (9.8-13.1) 12/15/17 17:30 INR 1.1 (0.9-1.2) 12/15/17 17:30 APTT 31.2 Seconds (25.6-37.1) 12/15/17 17:30 Sodium 143 mmol/l (132-148) 12/16/17 08:35 Potassium 4.7 MMOL/L (3.6-5.0) 12/16/17 08:35 Chloride 102 mmol/L (98-107) 12/16/17 08:35 Carbon Dioxide 30 mmol/L (22-30) 12/16/17 08:35 Anion Gap 16 (10-20) 12/16/17 08:35 BUN 66 mg/dl (9-20) H 12/16/17 08:35 Creatinine 1.9 mg/dl (0.8-1.5) H 12/16/17 08:35 Est GFR ( Amer) 43 12/16/17 08:35 Est GFR (Non-Af Amer) 36 12/16/17 08:35 POC Glucose (mg/dL) 208 mg/dL (65-110) H 12/16/17 11:08 Random Glucose 79 mg/dL (75-110) 12/16/17 08:35 Calcium 9.1 mg/dL (8.4-10.2) 12/16/17 08:35 Total Bilirubin 0.5 mg/dl (0.2-1.3) 12/15/17 16:47 AST 39 U/L (17-59) 12/15/17 16:47 ALT 36 U/L (21-72) 12/15/17 16:47 Alkaline Phosphatase 118 U/L (38-126) 12/15/17 16:47 Total Protein 7.2 G/DL (6.3-8.2) 12/15/17 16:47 Albumin 3.7 g/dL (3.5-5.0) 12/15/17 16:47 Globulin 3.5 gm/dL (2.2-3.9) 12/15/17 16:47 Albumin/Globulin Ratio 1.1 (1.0-2.1) 12/15/17 16:47 Urine Color Yellow (YELLOW) 12/15/17 17:11 Urine Clarity Cloudy (Clear) 12/15/17 17:11 Urine pH 6.0 (5.0-8.0) 12/15/17 17:11 Ur Specific [place] 1.014 (1.003-1.030) 12/15/17 17:11 Urine Protein 30 mg/dL (NEGATIVE) 12/15/17 17:11 Urine Glucose (UA) 50 mg/dL (Normal) 12/15/17 17:11 Urine Ketones Negative mg/dL (NEGATIVE) 12/15/17 17:11 Urine Blood Negative (NEGATIVE) 12/15/17 17:11 Urine Nitrate Negative (NEGATIVE) 12/15/17 17:11 Urine Bilirubin Negative (NEGATIVE) 12/15/17 17:11 Urine Urobilinogen 0.2-1.0 mg/dL (0.2-1.0) 12/15/17 17:11 Ur Leukocyte Esterase Large Rebeca/uL (Negative) 12/15/17 17:11 Urine RBC (Auto) 4 /hpf (0-3) H 12/15/17 17:11 Urine WBC Clumps (Auto) Few /hpf (NONE) H 12/15/17 17:11 Urine Microscopic WBC 363 /hpf (0-5) H 12/15/17 17:11 Ur Squamous Epith Cells 1 /hpf (0-5) 12/15/17 17:11 Urine Bacteria Many (<OCC) H 12/15/17 17:11 - Hospital Course Hospital Course: 66 years old male with hx of Metastatic Prostate Cancer with mets to the Spine on Chronic Opiates for pain, Hx of DM II, CKD, DVT on Eliquis comes because of constipation for 10 days. He has been taking Colace, Senna and Lactulose at home however constipation persisted. 1. Constipation Secondary to Opiates - CT abdomen shows constipation -GI consulted - discussed case with DR Roth- recommended Relistor however not available in our pharmacy. He recommended starting Miralax TID ( ok to use despite REnal Insuff accdg to GI) - Tap water Enema - Pt had several large BM in the hospital - will d/c home on Miralax tid 2. Metabolic Encephalopathy due to the metastatic Prostate Cancer/ Renal failure and dehydration/ Constipation/UTI - CT head shows no significant abnormality - Pt's mental status improved - alert, oriented x 3 3. Acute on chronic Renal failure - IV fluids 4. Anemia OF chronic Disease - stable H/H 5. DM with Hyperglycemia - Regular insulin sliding scale according to accucheck - Levemir 5. Metastatic Prostatic disease - Pt follows up with his own Oncologist and Urologist as outpt 6. hypothyroidism - continue Synthroid 7. History of DVT cont Eliquis 8. UTI - Urine c/s : Klebsiella - Pt received IV Cipro , will cont pt on PO CIpro #. DVT prophylaxis- pt is on Eliquis #.Code Status: Full Surrogate Decision maker - spouse Lora Discharge Exam - Head Exam Head Exam: ATRAUMATIC, NORMAL INSPECTION, NORMOCEPHALIC - Eye Exam Eye Exam: EOMI, Normal appearance Pupil Exam: NORMAL ACCOMODATION - ENT Exam ENT Exam: Mucous Membranes Moist, Normal External Ear Exam - Neck Exam Neck exam: Full Rom - Respiratory Exam Respiratory Exam: NORMAL BREATHING PATTERN. absent: Respiratory Distress - Cardiovascular Exam Cardiovascular Exam: REGULAR RHYTHM, +S1, +S2 - GI/Abdominal Exam GI & Abdominal Exam: Normal Bowel Sounds, Soft. absent: Tenderness - Extremities Exam Extremities exam: full ROM, normal capillary refill, pedal pulses present - Back Exam Back exam: absent: CVA tenderness (L), CVA tenderness (R), paraspinal tenderness , vertebral tenderness - Neurological Exam Neurological exam: Alert, CN II-XII Intact, Oriented x3, Reflexes Normal - Psychiatric Exam Psychiatric exam: Normal Affect, Normal Mood - Skin Skin Exam: Dry, Normal Color, Warm Discharge Plan - Discharge Medications Prescriptions: Ciprofloxacin HCl [Cipro] 500 mg PO DAILY #7 tablet Polyethylene Glycol 3350 [Miralax] 17 gm PO TID #100 packet - Follow Up Plan Condition: IMPROVED Disposition: HOME/ ROUTINE Instructions: Constipation, Adult (DC), Urinary Tract Infection in Men (DC) Additional Instructions: ff up with Oncologist alesha ff up with Urology alesha ff up with PMD in 1 wk Referrals: Shaik Oliveira MD [Family Provider] -
--- NOTE | 2017-12-17 11:16 | CP.PCM.PN ---
<David Matthews - Last Filed: 12/17/17 11:17> Subjective - Date & Time of Evaluation Date of Evaluation: 12/17/17 Time of Evaluation: 09:00 - Subjective Subjective: PGY4 pt seen and examine bedside Denies any abd pain tolerating diet No other complaints ROS: 12 point ROS conductd, neg other than above Objective - Vital Signs/Intake and Output Vital Signs (last 24 hours): Temp Pulse Resp BP Pulse Ox 98.1 F 96 H 18 143/77 98 12/17/17 08:02 12/17/17 09:11 12/17/17 08:02 12/17/17 09:11 12/17/17 08:02 Intake and Output: 12/17/17 12/17/17 06:59 18:59 Intake Total 1000 Output Total 300 Balance 700 - Medications Medications: Current Medications Amlodipine Besylate (Norvasc) 5 mg PO DAILY [facility] Last Admin: 12/17/17 09:11 Dose: 5 mg Apixaban (Eliquis) 5 mg PO Q12 TERESA PRN Reason: Protocol Last Admin: 12/17/17 09:11 Dose: 5 mg Atorvastatin Calcium (Lipitor) 20 mg PO HS [facility] Last Admin: 12/16/17 22:15 Dose: 20 mg Cyclobenzaprine HCl (Flexeril) 10 mg PO Q8 PRN PRN Reason: Muscle spasm Last Admin: 12/17/17 09:10 Dose: 10 mg Gabapentin (Neurontin) 300 mg PO TID [facility] Last Admin: 12/17/17 09:11 Dose: 300 mg Ciprofloxacin (Cipro 400mg/200ml Dsw) 400 mg in 200 mls @ 200 mls/hr IVPB Q12 TERESA PRN Reason: Protocol Last Admin: 12/17/17 09:12 Dose: 200 mls/hr Insulin Detemir (Levemir) 25 units SC HS [facility] Last Admin: 12/16/17 22:21 Dose: 25 units Insulin Human Regular (Humulin R) 0 units SC ACHS [facility] PRN Reason: Protocol Last Admin: 12/17/17 06:34 Dose: 1 unit Lactulose (Enulose) 20 gm PO BID [facility] Last Admin: 12/17/17 09:10 Dose: 20 gm Levothyroxine Sodium (Synthroid) 175 mcg PO DAILY@0630 [facility] Last Admin: 12/17/17 06:31 Dose: 175 mcg Oxycodone HCl (Oxycodone Immediate Release Tab) 10 mg PO Q12 PRN PRN Reason: Pain, severe (8-10) Pantoprazole Sodium (Protonix Ec Tab) 40 mg PO DAILY [facility] Last Admin: 12/17/17 09:11 Dose: 40 mg Polyethylene Glycol (Miralax) 17 gm PO TID [facility] Last Admin: 12/17/17 09:11 Dose: 17 gm Sennosides (Senokot Tab) 25.8 mg PO HS [facility] Last Admin: 12/16/17 22:17 Dose: 25.8 mg Tamsulosin HCl (Flomax) 0.4 mg PO DAILY [facility] Last Admin: 12/17/17 09:11 Dose: 0.4 mg - Labs Labs: 12/16/17 08:35 12/16/17 08:35 PT 12.6 Seconds (9.8-13.1) 12/15/17 17:30 INR 1.1 (0.9-1.2) 12/15/17 17:30 APTT 31.2 Seconds (25.6-37.1) 12/15/17 17:30 - Constitutional Appears: Well, No Acute Distress - Head Exam Head Exam: ATRAUMATIC, NORMOCEPHALIC - Eye Exam Eye Exam: Normal appearance - ENT Exam ENT Exam: Mucous Membranes Moist, Normal Exam - Neck Exam Neck Exam: Normal Inspection - Respiratory Exam Respiratory Exam: Clear to Ausculation Bilateral, NORMAL BREATHING PATTERN. absent: Rhonchi, Wheezes, Respiratory Distress - Cardiovascular Exam Cardiovascular Exam: REGULAR RHYTHM, +S1, +S2 - GI/Abdominal Exam GI & Abdominal Exam: Soft, Normal Bowel Sounds. absent: Distended, Firm, Guarding, Rigid, Tenderness, Organomegaly, Rebound - Extremities Exam Extremities Exam: absent: Joint Swelling, Pedal Edema - Neurological Exam Neurological Exam: Alert, Awake, Oriented x3 - Psychiatric Exam Psychiatric exam: Normal Affect, Normal Mood - Skin Skin Exam: Dry, Intact, Normal Color, Warm Assessment and Plan - Assessment and Plan (Free Text) Assessment: Maximo Crain is a 66 yo M with PMH of DM and hypothyroidism presents complaining of right leg pain, 10 days of constipation Acute on Chronic Constipation Renal mass Hx of prostate Ca Plan: -continue miralax TID -pain management as per primary team -diet as tolerated -no indication for any GI procedure at this time -continue miralax TID at home, especially on narcotics -will sign off D/W Dr. Roth <Baltazar Roth - Last Filed: 12/18/17 12:06> Objective - Vital Signs/Intake and Output Vital Signs (last 24 hours): Temp Pulse Resp BP Pulse Ox 97.5 F L 90 18 130/75 97 12/17/17 12:00 12/17/17 12:00 12/17/17 12:00 12/17/17 12:00 12/17/17 12:00 - Labs Labs: 12/16/17 08:35 12/16/17 08:35 PT 12.6 Seconds (9.8-13.1) 12/15/17 17:30 INR 1.1 (0.9-1.2) 12/15/17 17:30 APTT 31.2 Seconds (25.6-37.1) 12/15/17 17:30 Attending/Attestation - Attestation I have personally seen and examined this patient.: Yes I have fully participated in the care of the patient.: Yes I have reviewed all pertinent clinical information, including history, physical exam and plan: Yes Notes (Text): 12/17/17 12:05 66m with OIC in the setting of metastatic prostate ca s/p relistor. Improving constipation. Continue bowel regimen with miralax.
[2017-12-17 12:01] VITALS: BP 130/75; PULSE 90; TEMP 97.5; O2SAT 97
--- NOTE | 2017-12-18 07:06 | CARD ---
APPROVED REPORT EKG Measurement Heart [id number] <Conclusion> Sinus tachycardia Possible Left atrial enlargement Borderline ECG
== END 2017-12-17 14:14 | disposition home or self-care (01) ==
LOC: H.ER 14:47 → H.ERHOLD 12-16 00:14 → H.TEL 12-16 01:07
PROVIDERS: ADMIT Internal Medicine; ATTEND Internal Medicine
DX: K59.03 Drug induced constipation (principal); T40.605A Adverse effect of unspecified narcotics, initial encounter; E11.65 Type 2 diabetes mellitus with hyperglycemia; E87.5 Hyperkalemia; N17.9 Acute kidney failure, unspecified; N18.9 Chronic kidney disease, unspecified; E03.9 Hypothyroidism, unspecified; E11.22 Type 2 diabetes mellitus with diabetic chronic kidney disease; I12.9 Hypertensive chronic kidney disease with stage 1 through stage 4 chronic kidney disease, or unspecified chronic kidney disease; D63.8 Anemia in other chronic diseases classified elsewhere; E78.00 Pure hypercholesterolemia, unspecified; E78.5 Hyperlipidemia, unspecified; N40.0 Benign prostatic hyperplasia without lower urinary tract symptoms; Z86.718 Personal history of other venous thrombosis and embolism; N28.89 Other specified disorders of kidney and ureter; N39.0 Urinary tract infection, site not specified; Z79.01 Long term (current) use of anticoagulants; C79.51 Secondary malignant neoplasm of bone; B96.1 Klebsiella pneumoniae [K. pneumoniae] as the cause of diseases classified elsewhere; G93.41 Metabolic encephalopathy; C61 Malignant neoplasm of prostate; G89.3 Neoplasm related pain (acute) (chronic); E86.0 Dehydration
CPT/HCPCS: 36415; 70450; 74022; 74176; 80048; 80053; 81003; 82948; 85025; 85610; 85730; 87086; 87181; 96365; 99285; G0378; J0744; J2060; J7040

== ENCOUNTER 2018-04-11 14:48 | Emergency (ER) | payer MEDICARE, MEDICAID, SELFPAY ==
[2018-04-11 14:49] VITALS: BMI 31.1
--- NOTE | 2018-04-11 16:24 | ED PDOC ---
HPI: Male Pain Time Seen by Provider: 04/11/18 15:00 Chief Complaint (Nursing): Male Genitourinary Chief Complaint (Provider): Penile Pain History Per: Patient History/Exam Limitations: no limitations Onset/Duration Of Symptoms: Days Current Symptoms Are (Timing): Still Present Quality Of Discomfort: "Pain" Additional Complaint(s): 67 year old male with PMHx of HTN, prostate cancer and diabetes presents to the ER for evaluation of penile pain. Patient reports urinary catheter was placed one month ago at [facility] and over the last few days "is not working". States he cannot urinate through mccormack for the last few days. Denies abdominal pain, fever, chills, vomiting or diarrhea. PMD: Kris Matthews and Dr. Ludwin Virk (Urologist) Past Medical History Reviewed: Historical Data, Nursing Documentation, Vital Signs Vital Signs: Last Vital Signs Temp 98.4 F 04/11/18 14:53 Pulse 67 04/11/18 14:53 Resp 20 04/11/18 14:53 BP 146/85 04/11/18 14:53 Pulse Ox 99 04/11/18 14:53 - Medical History PMH: Anemia, Arthritis, COPD, Diabetes, Deep Vein Thrombosis, Fractures (lower back), HTN, Hypercholesterolemia, Hypothyroidism, Chronic Kidney Disease Denies: HIV - Surgical History Surgical History: Hernia Repair - Family History Family History: States: Unknown Family Hx - Social History Current smoker - smoking cessation education provided: No Alcohol: None Drugs: Denies - Immunization History Hx Tetanus Toxoid Vaccination: No Hx Influenza Vaccination: Yes Hx Pneumococcal Vaccination: Yes - Home Medications Home Medications: Ambulatory Orders Medication Instructions Recorded Apixaban [Eliquis] 5 mg PO BID 11/10/17 Levothyroxine Sodium [Synthroid] 175 mcg PO DAILY 11/10/17 Rosuvastatin Calcium [Crestor] 10 mg PO HS 11/10/17 amLODIPine [Norvasc] 5 mg PO DAILY 11/10/17 Gabapentin [Neurontin] 300 mg PO TID #90 cap 11/17/17 Tamsulosin [Flomax] 0.4 mg PO DAILY #30 cap 11/17/17 Insulin Glargine, Recombina 25 unit SQ BID #0 12/06/17 [Lantus] Esomeprazole Magnesium [Nexium] 20 mg PO DAILY 03/19/18 Insulin Aspart [Novolog FLEXPEN] See Protocol SC ACHS 03/19/18 Multivitamin [Multivitamins] 1 each PO DAILY 03/19/18 Sennosides A and B [Senokot Tab] 2 tab PO HS 03/19/18 Nitrofurantoin Macrocrystals 100 mg PO BID #14 cap 04/11/18 [Macrobid] - Allergies Allergies/Adverse Reactions: Allergies Allergy/AdvReac Type Severity Reaction Status Date / Time No Known Allergies Allergy Verified 04/04/18 08:03 Review of Systems ROS Statement: Except As Marked, All Systems Reviewed And Found Negative Constitutional: Negative for: Fever, Chills Gastrointestinal: Negative for: Nausea, Abdominal Pain, Diarrhea Genitourinary Male: Positive for: Penile Pain Physical Exam - Reviewed Nursing Documentation Reviewed: Yes Vital Signs Reviewed: Yes - Physical Exam Appears: Positive for: Non-toxic, No Acute Distress Head Exam: Positive for: ATRAUMATIC, NORMAL INSPECTION, NORMOCEPHALIC Skin: Positive for: Normal Color, Warm, Dry Eye Exam: Positive for: EOMI, Normal appearance, PERRL ENT: Positive for: Normal ENT Inspection Neck: Positive for: Normal, Painless ROM, Supple. Negative for: Decreased ROM Cardiovascular/Chest: Positive for: Regular Rate, Rhythm. Negative for: Murmur Respiratory: Positive for: Normal Breath Sounds. Negative for: Decreased Breath Sounds, Wheezing, Respiratory Distress Gastrointestinal/Abdominal: Positive for: Normal Exam, Soft, Other (folic bag by leg, urine clean 5-6cc clear urine). Negative for: Tenderness, Guarding, Rebound Back: Positive for: Normal Inspection Extremity: Positive for: Normal ROM. Negative for: Tenderness, Pedal Edema, Deformity Neurologic/Psych: Positive for: Alert, Oriented (x3). Negative for: Motor/ Sensory Deficits - ECG O2 Sat by Pulse Oximetry: 99 (RA) Pulse Ox Interpretation: Normal Medical Decision Making Medical Decision Making: Time: 1530 inability to urinate, rule out clogged mccormack tubing, rule out uti --Urine C&S --Urinalysis --Reevaluation Time: 1600, After folic flushed by RN , urine freely flowed UA shows infection. pt will vbe given abx and has appt with urologist in 2 days , on monday. Scribe Attestation: Documented by Gilberto Luke, acting as a scribe for Provider Scribe Attestation: All medical record entries made by the Scribe were at my direction and personally dictated by me. I have reviewed the chart and agree that the record accurately reflects my personal performance of the history, physical exam, medical decision making, and the department course for this patient. I have also personally directed, reviewed, and agree with the discharge instructions and disposition. Time: 0 -- Patient to be discharged home with a diagnosis of UTI and a prescription of Cipro. Patient instructed to follow up with Dr. Virk, urologist on Monday. Scribe Attestation: Documented by Pedro Alejandra acting as a scribe for Jesus Mendoza MD. Provider Scribe Attestation: All medical record entries made by the Scribe were at my direction and personally dictated by me. I have reviewed the chart and agree that the record accurately reflects my personal performance of the history, physical exam, medical decision making, and the department course for this patient. I have also personally directed, reviewed, and agree with the discharge instructions and disposition. Disposition - Clinical Impression Clinical Impression: UTI (urinary tract infection), Mccormack catheter in place - Patient ED Disposition Is Patient to be Admitted: No Counseled Patient/Family Regarding: Studies Performed, Diagnosis, Need For Followup - Disposition Disposition: Routine/Home Disposition Time: 16:10 Condition: IMPROVED Additional Instructions: follow up with Dr Esquivel on monday return to the ED with any worsening or concerning symptoms Prescriptions: Nitrofurantoin Macrocrystals [Macrobid] 100 mg PO BID #14 cap Instructions: Urinary Tract Infection, Adult (DC), How to Care for Your Mccormack Catheter, Male Forms: [employer] [facility] (Romanian)
[2018-04-11 17:07] LABS: URINE BACTERIA RARE (<OCC); URINE BILIRUBIN NEGATIVE (NEGATIVE); URINE BLOOD NEGATIVE (NEGATIVE); URINE CLARITY SLIGHTY-CLOUDY (Clear); URINE COLOR YELLOW (YELLOW); URINE GLUCOSE (UA) 150 mg/dL (Normal); URINE LEUKOCYTE ESTERASE SMALL Leu/uL (Negative); URINE UROBILINOGEN 0.2-1.0 mg/dL (0.2-1.0)
[2018-04-11 17:16] LABS: URINE PROTEIN >=300 mg/dL (NEGATIVE)
[2018-04-11 17:39] VITALS: BP 164/93; PULSE 84; RESP 18; TEMP 98.6
[2018-04-11 18:59] VITALS: O2SAT 99
== END 2018-04-11 17:39 | disposition home or self-care (01) ==
LOC: H.ER 14:48
DX: N39.0 Urinary tract infection, site not specified (principal)

== ENCOUNTER 2018-10-29 17:56 | Emergency (ER) | payer MEDICARE, MEDICAID ==
[2018-10-29 17:56] VITALS: BMI 26.9
--- NOTE | 2018-10-29 19:46 | ED PDOC ---
HPI: CCC, URI, Sore Throat Time Seen by Provider: 10/29/18 19:00 Chief Complaint (Nursing): ENT Problem Chief Complaint (Provider): Right ear pain History Per: Patient History/Exam Limitations: no limitations Have you had recent travel within the past 21 days to any of the following countries: [place], [place], [place] or [place]?: No Onset/Duration Of Symptoms: Days Current Symptoms Are (Timing): Still Present Location Of Pain: Ear(s) Associated Symptoms: denies: Fever, Chills, Sore Throat Ear Symptoms: Right: Ear Pain Additional History Per: Patient Additional Complaint(s): 67yo male, with history of diabetes and currently on chemotherapy due to prostate cancer, comes to ER reporting right sided ear pain x 1 week. Patient was evaluated by his PMD 6 days ago, began treatment with tobramycin and ampicillin but states he has had no relief. He has been taking Tylenol with transient relief of pain. Otherwise, no associated fever, chills, headache, or throat pain. No additional complaints. PMD: Dr. Kinjal Matthews Heme/onc: Dr. Castañeda Past Medical History Reviewed: Historical Data, Nursing Documentation, Vital Signs Vital Signs: Last Vital Signs Temp 98.5 F 10/29/18 18:47 Pulse 76 10/29/18 18:47 Resp 18 10/29/18 18:47 BP 145/83 10/29/18 18:47 Pulse Ox 99 10/29/18 18:47 - Medical History PMH: Anemia, Arthritis, CHF, COPD, Diabetes, Deep Vein Thrombosis, Fractures (lower back), HTN, Hypercholesterolemia, Hypothyroidism, Peripheral Edema, Chronic Kidney Disease Denies: HIV - Surgical History Surgical History: Endoscopy, Hernia Repair - Family History Family History: States: Unknown Family Hx - Immunization History Hx Tetanus Toxoid Vaccination: No Hx Influenza Vaccination: Yes Hx Pneumococcal Vaccination: Yes - Home Medications Home Medications: Ambulatory Orders Medication Instructions Recorded Apixaban [Eliquis] 5 mg PO BID 11/10/17 Levothyroxine Sodium [Synthroid] 175 mcg PO DAILY 11/10/17 Rosuvastatin Calcium [Crestor] 10 mg PO HS 11/10/17 amLODIPine [Norvasc] 5 mg PO DAILY 11/10/17 Gabapentin [Neurontin] 300 mg PO TID #90 cap 04/20/18 Tamsulosin [Flomax] 0.4 mg PO DAILY #30 cap 11/17/17 Insulin Glargine, Recombina 25 unit SQ BID #0 12/06/17 [Lantus] Esomeprazole Magnesium [Nexium] 20 mg PO DAILY 03/19/18 Insulin Aspart [Novolog FLEXPEN] See Protocol SC ACHS PRN 03/19/18 Multivitamin [Multivitamins] 1 each PO DAILY 03/19/18 Sennosides A and B [Senokot Tab] 2 tab PO HS 03/19/18 Ciprofloxacin [Cipro] 500 mg PO BID 10 Days #20 tab 10/29/18 Ciprofloxacin/Hydrocortisone 3 drop OT BID 7 Days #5 ml 10/29/18 [Cipro Hc 0.2%-1% 10 ml] - Allergies Allergies/Adverse Reactions: Allergies Allergy/AdvReac Type Severity Reaction Status Date / Time No Known Allergies Allergy Verified 10/29/18 18:47 Review of Systems ROS Statement: Except As Marked, All Systems Reviewed And Found Negative Constitutional: Negative for: Fever, Chills ENT: Positive for: Ear Pain. Negative for: Throat Pain Cardiovascular: Negative for: Chest Pain Respiratory: Negative for: Cough, Shortness of Breath Physical Exam - Reviewed Nursing Documentation Reviewed: Yes Vital Signs Reviewed: Yes - Physical Exam Comments: GENERAL APPEARANCE: Patient is awake, alert, oriented x 3, in no acute distress. SKIN: Warm, dry; (-) cyanosis. ENMT: Left ear unremarkable. Right externsl ear canal with erythema and edema; (+) purulent discharge noted in right ear canal; Unable to visualize right TM. (-) Mastoid tenderness. Pharynx: Clear; (-) erythema, (-) exudate. Airway patent: (-) stridor. NECK: (-) stiffness, (-) tenderness, (-) lymphadenopathy. LUNGS: clear, (-) wheezing, (-) rhonchi. CARDIAC: RRR, (-) murmurs, (-) gallops. - ECG O2 Sat by Pulse Oximetry: 99 (RA) Pulse Ox Interpretation: Normal Medical Decision Making Medical Decision Making: Worsening otitis media Plan: -- Tylenol 650mg PO Discussed with Dr. florian regarding treatment, who agrees with assessment and plan - will change antibiotics to Cipro HC and Cipro PO for appropriate coverage and treatment Discussed results, diagnosis, treatment, return precautions and f/u with pt who is understanding, in agreement and stable for dc Scribe Attestation: Documented by Cheyanne Reyna, acting as a scribe for HARPER Jordan. Provider Scribe Attestation: All medical record entries made by the Scribe were at my direction and personally dictated by me. I have reviewed the chart and agree that the record accurately reflects my personal performance of the history, physical exam, medical decision making, and the department course for this patient. I have also personally directed, reviewed, and agree with the discharge instructions and disposition. Disposition - Clinical Impression Clinical Impression: Otitis externa of right ear - Patient ED Disposition Is Patient to be Admitted: No Counseled Patient/Family Regarding: Studies Performed, Diagnosis, Need For Followup, Rx Given - Disposition Referrals: Danny Vora MD [Staff Provider] - Kathleen Castañeda MD [Medical Doctor] - Disposition: Routine/Home Disposition Time: 20:19 Condition: STABLE Additional Instructions: Return to ED for new or worsening symptoms, fever >100.4, increasing pain, blood from ear. Follow up with your primary doctor and ENT specialist in 2-3 days. stop taking previous medications. Take new ear drops and antibiotic medications as prescribed today. Regrese a la ED para sntomas nuevos o que empeoran, fiebre> 100.4, aumento del dolor, doc del odo. Zeinab un seguimiento con fritz mdico de cabecera y especialista en ORL en 2-3 john. dejar de smitha medicamentos anteriores. [place] nuevas gotas para los odos y antibiticos segn lo prescrito hoy. Prescriptions: Ciprofloxacin [Cipro] 500 mg PO BID 10 Days #20 tab Ciprofloxacin/Hydrocortisone [Cipro Hc 0.2%-1% 10 ml] 3 drop OT BID 7 Days #5 ml Instructions: Outer Ear Infection (DC) Forms: [employer] [facility] (Pashto), [employer] (Uzbek) Print Language: CHINESE - POA Present On Arrival: None
[2018-10-29 20:36] VITALS: BP 126/81; PULSE 74; RESP 16; TEMP 97.7
[2018-10-30 12:21] VITALS: O2SAT 99
== END 2018-10-29 20:34 | disposition home or self-care (01) ==
LOC: H.ER 17:56
DX: H60.91 Unspecified otitis externa, right ear (principal)